=== PATIENT | female | born 1930 | race Caucasian/White ===

== ENCOUNTER 2019-08-23 05:11 | Inpatient (IN) ==
--- NOTE | 2019-06-29 16:27 | PAT Medication Instructions ---
Medication Instructions Date of Service June 29, 2019 Home Medications acetaminophen 500 mg PO DAILY PRN albuterol sulfate [ProAir HFA] 1 puff INHALATION Q6H PRN calcium carbonate-vitamin D3 [Calcium 600 with Vitamin D3] 1 cap PO QAM carvedilol 3.125 mg PO BIDM diclofenac sodium 2 g TOPICAL QID PRN latanoprost 1 drp OPHTHALMIC (EYE) PM loratadine 10 mg PO DAILY pariz-5-wqt-tht-iyr-mwwp oil [[place]-3 (with dpa)] 1 cap PO QAM omeprazole 20 mg PO QAM phenylephrine HCl 10 mg PO Q6H PRN solifenacin [Vesicare] 5 mg PO QAM vit C,P-Mz-wdnae-lutein-zeaxan [PreserVision AREDS-2] 1 tab PO BID vitamin B complex 1 tab PO QAM STOP taking 2 weeks before surgery (or as soon as possible if surgery is within 2 weeks) blnpy-6-jei-hhj-fyy-obqn oil [[place]-3 (with dpa)] 1 cap PO QAM vit C,M-Ua-weuhh-lutein-zeaxan [PreserVision AREDS-2] 1 tab PO BID STOP taking 24 hours before surgery diclofenac sodium 2 g TOPICAL QID PRN DO NOT take the morning of surgery calcium carbonate-vitamin D3 [Calcium 600 with Vitamin D3] 1 cap PO QAM loratadine 10 mg PO DAILY phenylephrine HCl 10 mg PO Q6H PRN solifenacin [Vesicare] 5 mg PO QAM vitamin B complex 1 tab PO QAM Take morning of surgery With a small sip of water, OTHERWISE NOTHING TO EAT OR DRINK AFTER MIDNIGHT: acetaminophen 500 mg PO DAILY PRN (okay to take up to 4 hours prior to surgery if needed) albuterol sulfate [ProAir HFA] 1 puff INHALATION Q6H PRN (use if needed; please bring with you to hospital day of surgery if possible) carvedilol 3.125 mg PO BIDM omeprazole 20 mg PO QAM Take evening before surgery acetaminophen 500 mg PO DAILY PRN (if needed) albuterol sulfate [ProAir HFA] 1 puff INHALATION Q6H PRN (if needed) carvedilol 3.125 mg PO BIDM latanoprost 1 drp OPHTHALMIC (EYE) PM phenylephrine HCl 10 mg PO Q6H PRN (if needed) Other Notes If you have any questions please call us at [phone] or [phone] or [phone] or [phone]
--- NOTE | 2019-08-03 13:49 | Anesthesiology Consultation ---
Date of Service August 03, 2019 Assessment & Plan (1) Encounter for pre-operative examination: - Awaiting review preop testing (labs, EKG, CXR). - Awaiting surgeon-ordered PCP clearance scheduled 08/18 (Dr. Adames). - Awaiting most recent cardiac testing if available (i.e. ECHO/stress). - Nondenominational: no blood products Chart Review Chart Review: Patient seen in Pre Admission Testing Teaching & Discussion Pre-Anesthesia Teaching/Discussion Notes: Instructed NPO after midnight before surgery,except medications with 15 cc of water. Medication instructions provided according to the PAT guidelines. History Surgery Operation Date: 08/23/19 11:15 Proposed Procedures p Right Total Hip Arthroplasty - Zack Hart, Height/Weight Height: 4 ft 11 in Weight: 69 kg Allergies Allergy/AdvReac Type Severity Reaction Status Date / Time bee venom protein (honey bee) Allergy Unknown SWELLING Verified 06/28/19 13:24 estrogens, conjugated Allergy Unknown SWELLING Verified 06/28/19 13:24 oxycodone Allergy Unknown Hives, Verified 02/21/13 16:11 swelling around eyes. Sulfa (Sulfonamide Allergy Unknown HIVES Verified 02/21/13 20:01 Antibiotics) ferrous sulfate Allergy SWELLING Unverified 02/21/13 15:12 adhesive AdvReac Unknown SKIN Verified 06/28/19 13:53 IRRITATION MADSEN Allergy Unknown SWELLING Uncoded 06/28/19 13:24 Medications Home Medications Medication Instructions Recorded Confirmed Last Taken acetaminophen 500 mg PO DAILY PRN 06/28/19 06/28/19 Unknown albuterol sulfate [ProAir HFA] 1 puff INHALATION Q6H PRN 06/28/19 06/28/19 Unknown calcium carbonate-vitamin D3 1 cap PO QAM 06/28/19 06/28/19 Unknown [Calcium 600 with Vitamin D3] carvedilol 3.125 mg PO BIDM 06/28/19 06/28/19 Unknown diclofenac sodium 2 g TOPICAL QID PRN 06/28/19 06/28/19 Unknown latanoprost 1 drp OPHTHALMIC (EYE) PM 06/28/19 06/28/19 Unknown loratadine 10 mg PO DAILY 06/28/19 06/28/19 Unknown azghz-8-ufo-kec-luj-bofc oil 1 cap PO QAM 06/28/19 06/28/19 Unknown [[place]-3 (with dpa)] omeprazole 20 mg PO QAM 06/28/19 06/28/19 Unknown phenylephrine HCl 10 mg PO Q6H PRN 06/28/19 06/28/19 Unknown solifenacin [Vesicare] 5 mg PO QAM 06/28/19 06/28/19 Unknown vit C,T-Ts-ccuti-lutein-zeaxan 1 tab PO BID 06/28/19 06/28/19 Unknown [PreserVision AREDS-2] vitamin B complex 1 tab PO QAM 06/28/19 06/28/19 Unknown Past Medical History Medical History GERD (gastroesophageal reflux disease) controlled Glaucoma Hearing deficit History of bronchitis inhaler PRN Hx of deep venous thrombosis LLE DVT post-op hysterectomy (1977) Hypertension Obesity Osteoarthritis Refusal of blood transfusions as patient is [place] Urinary frequency + urgency Exercise / Class Metabolic Activity III < 4 Walking/Shop/Light housework Past Family History Family History Other FHx: cancer Past Surgical History Surgical History History of colonoscopy History of cystocele rectocele, and vaginal surgery History of esophagogastroduodenoscopy (EGD) History of total left knee replacement History of total right knee replacement Hx of total hysterectomy Past Anesthesia History No Family Hx of Anesthesia Complications and Other Patient: Patient reports in s, "slow to wake." Also, "out of it" after initial knee replacement. No issues with other surgeries/anesthesia. Daughter: "slow to wake." PONV. History of PONV No Hx of PONV and No Hx of Motion Sickness Social History Smoking Status: Never smoker Do You Dip or Chew Tobacco: No Hx Alcohol Use: No Hx Substance Use: No Review of Systems Patient denies chest pain, shortness of breath, reflux, cough, wheezing, palpitations. Physical Exam Vital Signs VITALS BP 124/81 P 73 TEMP 98.1 SP02 96%RA RESP 18 PHYSICAL Full neck and c-spine range of motion. Full TMJ range of motion. TMD 3 finger breaths Mallampati Score 1 Dentition: 7 lower remaining front teeth, upper full denture Lungs: clear throughout to auscultation Cardiac: regular rate and rhythm, no murmurs noted Spine: normal Carotid arteries: negative bruit Extremities: no edema
--- NOTE | 2019-08-03 14:35 | XRay Report ---
XR chest Pre-admission PA/Lat CLINICAL HISTORY: Preoperative chest COMPARISON STUDY: 09/12/2015, January 2013 FINDINGS: The heart is normal in size. There is aortic tortuosity. There is no failure. There is no f ocal pulmonary consolidation. There are no pleural effusions.[There is stable anterior scalloping of the anterior aspect of 2 consecutive lower thoracic vertebral bodies IMPRESSION: No active disease in the chest. Electronically signed by: Raheel Perea M.D. 08/03/2019 2:33 PM
[2019-08-03 15:39] LABS: Basophils # (auto) 0.04 K/uL (0-0.2); Basophils % (auto) 0.9 %; Eosinophils % (auto) 2.2 %; Hematocrit (blood only) 36.8 % (37-47); Hemoglobin 12.1 g/dL (12.0-16.0); Immature Granulocytes # (auto) 0.01 K/uL (0.00-0.02); Immature Granulocytes % (auto) 0.2 %; Lymphocytes # (auto) 1.61 K/uL (1.2-3.4); Lymphocytes % (auto) 35.4 %; Mean Corpuscular Hemoglobin 33.5 pg (25-34); Mean Corpuscular Hgb Conc 32.9 g/dL (32-36); Mean Corpuscular Volume 101.9 fL (80-100); Mean Platelet Volume 11.4 fL (7.4-10.4); Monocytes # (auto) 0.43 K/uL (0.11-0.59); Monocytes % (auto) 9.5 %; Neutrophils # (auto) 2.36 K/uL (1.4-6.5); Neutrophils % (auto) 51.8 %; Platelet Count 240 K/uL (130-400); RDW Coefficient of Variation 14.3 % (11.5-14.5); Red Blood Count 3.61 M/uL (4.2-5.4); White Blood Count 4.55 K/uL (4.8-10.8)
[2019-08-03 15:48] LABS: Appearance Urine Clear (Clear); Bacteria Urine Automated Negative (Negative); Bilirubin Urine Negative (Negative); Blood Urine Trace (Negative); Cast Urine Automated 0 /lpf (0-5); Color Urine Yellow; Glucose Urine UA Negative (Negative); Ketones Urine Negative (Negative); Leukocyte Esterase Urine 1+ (Negative); Nitrite Urine Negative (Negative); Protein Urine Negative (Negative); RBC Urine Automated 0-4 /hpf (0-4); Urobilinogen Urine Negative (Negative); pH Urine 6.5 (4.5-7.5)
[2019-08-03 15:51] LABS: Albumin Level 3.7 gm/dl (3.4-5.0); BUN Creatinine Ratio 14.6 (10-20); Creatinine Clr Calc Pharmacy 31.3 ml/min; Est GFR (African American) 54.1; Est GFR (Non-African American) 46.6; Potassium 3.9 mmol/L (3.5-5.1)
[2019-08-03 15:57] LABS: Partial Thromboplastin Time 25.8 Seconds (21.0-31.0); Prothrombin Time 10.3 Seconds (9.0-12.0)
[2019-08-04 06:15] LABS: Estimated Average Glucose 108 mg/dl; Hemoglobin A1C 5.4 % (4.5-5.6)
--- NOTE | 2019-08-22 10:01 | History & Physical Report ---
Date of Service August 22, 2019 Assessment & Plan (1) Degenerative joint disease of right hip: I have indicated the patient for right total hip replacement. The risks, benefits and complications of surgery were explained to the patient which include but not limited to infection, acute blood loss, DVT/PE, injury to nerves, vessels, bone, soft tissue, arthrofibrosis, chronic pain, failure of the prosthesis, hip dislocation, leg length discrepancy, need for additional surgery, cardiac and pulmonary events and . The patient wished to proceed with surgery and informed consent was obtained at this time. We will plan for ASA 81mg BID post-operatively for DVT prophylaxis. Upon discharge the patient will be discharged home with home health services. Appropriate clearances by PCP were obtained. Patient is [place], declining any blood product, understands risks. History of Present Illness Chief Complaint: Right hip pain/djd Primary Care Provider: Alberto Adames DO The patient is a 88 year old female who presents with complaints of severe right hip pain and DJD. The patient has failed outpatient conservative ros atments to this point which included topical NSAIDs, cannot take oral secondary to kidneys, home exercise/walking program, patient declined IA hip injection. The patient's pain and limited function have progressed to the point where they severely hinder their activities of daily living and they no longer tolerate exercise programs. They are requesting to proceed with total hip replacement surgery. Allergies Allergy/AdvReac Type Severity Reaction Status Date / Time bee venom protein (honey bee) Allergy Unknown SWELLING Verified 08/23/19 06:05 estrogens, conjugated Allergy Unknown SWELLING Verified 08/23/19 06:05 oxycodone Allergy Unknown Hives, Verified 08/23/19 06:05 swelling around eyes. Sulfa (Sulfonamide Allergy Unknown HIVES Verified 08/23/19 06:05 Antibiotics) ferrous sulfate Allergy SWELLING Verified 08/23/19 06:05 adhesive AdvReac Unknown SKIN Verified 08/23/19 06:05 IRRITATION MADSEN Allergy Unknown SWELLING Uncoded 08/23/19 06:05 Home Medications Home Medications Medication Instructions Recorded Confirmed Type acetaminophen 1,000 mg PO DAILY PRN 06/28/19 08/23/19 History albuterol sulfate [ProAir HFA] 1 puff INHALATION Q6H PRN 06/28/19 08/23/19 History calcium carbonate-vitamin D3 1 cap PO QAM 06/28/19 08/23/19 History [Calcium 600 with Vitamin D3] carvedilol 3.125 mg PO BIDM 06/28/19 08/23/19 History diclofenac sodium 2 g TOPICAL QID PRN 06/28/19 08/23/19 History latanoprost 1 drp OPHTHALMIC (EYE) PM 06/28/19 08/23/19 History loratadine 10 mg PO DAILY 06/28/19 08/23/19 History mjpwl-4-dbm-bme-qii-toqh oil 1 cap PO QAM 06/28/19 08/23/19 History [[place]-3 (with dpa)] omeprazole 20 mg PO QAM 06/28/19 08/23/19 History phenylephrine HCl 10 mg PO Q6H PRN 06/28/19 08/23/19 History solifenacin [Vesicare] 5 mg PO QAM 06/28/19 08/23/19 History vit C,E-Jz-zlfjl-lutein-zeaxan 1 tab PO BID 06/28/19 08/23/19 History [PreserVision AREDS-2] vitamin B complex 1 tab PO QAM 06/28/19 08/23/19 History Past Med/Surg History Medical History GERD (gastroesophageal reflux disease) controlled Glaucoma Hearing deficit History of bronchitis inhaler PRN Hx of deep venous thrombosis LLE DVT post-op hysterectomy (1977) Hypertension Obesity Osteoarthritis Refusal of blood transfusions as patient is Gnostic[place] Urinary frequency + urgency Surgical History History of colonoscopy History of cystocele rectocele, and vaginal surgery History of esophagogastroduodenoscopy (EGD) History of total left knee replacement History of total right knee replacement Hx of total hysterectomy Family History Other FHx: cancer Social History Preferred Language: Comoran Communication Ability: Effective Beliefs That Will Affect Care: Anabaptism Anabaptism Beliefs: JEHOVAH WITNESS - NO BLOOD Current Living Situation: Alone Feels Safe at Home: Yes Safety Concerns: Feels Safe At This Time Smoking Status: Never smoker Do You Dip or Chew Tobacco: No ; Second Hand Exposure: No ; Hx Alcohol Use: No Hx Substance Use: No Review of Systems Review of Systems: All systems reviewed & are unremarkable except as noted in HPI & below Constitutional: as per Subjective / HPI Physical Exam Physical Exam: RLE NVSI +EHL/FHL/TA/GS SILT grossly, +2 DP pulse, compartments soft NT, limited painful ROM of the hip, antalgic gait. Constitutional: WD/WN, vitals as above Eyes: PERRL, conjunctivae normal, anicteric sclerae ENMT: external ear and nose normal, oropharynx normal Neck: trachea midline, no thyromegaly Respiratory: normal respiratory effort, lungs clear to auscultation Cardiovascular: RRR, no murmur, no edema Gastrointestinal (Abdomen): normal bowel sounds, soft, nontender, no hepatosplenomegaly Musculoskeletal: no cyanosis or clubbing, extremities motor strength 5/5 Skin: no rashes, warm and dry Neurologic: patellar DTR's 2+ bilat, sensation intact Psychiatric: A+Ox3, euthymic affect Lymphatic: no cervical or axillary lymphadenopathy Results & Data Diagnostic Findings Multiple views of the hip demonstrates severe DJD with complete loss of the joint space. +osteophytes, +sclerosis, +subchondral cysts.
[2019-08-23] MEDS ORDERED: CEFAZOLIN 1000MG 1,000 MG/7.5 ML SYR IV SCH (06:00)
[2019-08-23] MEDS ORDERED: ACETAMINOPHEN 500 MG TAB PO SCH (06:00)
[2019-08-23] MEDS ORDERED: dexAMETHasone 4 MG TAB PO SCH (06:00)
[2019-08-23] MEDS ORDERED: METOCLOPRAMIDE HCL 10 MG TABLET PO SCH (06:00)
[2019-08-23] MEDS ORDERED: FAMOTIDINE 20 MG TAB PO SCH (06:00)
[2019-08-23] MEDS ORDERED: CeleBREX 200 MG CAP PO SCH (06:00)
[2019-08-23] MEDS ORDERED: LR 500ML BOLUS, THEN 15ML/HR IV SCH (06:00)
[2019-08-23] MEDS ORDERED: GABAPENTIN 300 MG CAP PO SCH (06:00)
[2019-08-23] MEDS ORDERED: BUPIVACAINE 0.5 % 5 MG/1 ML PF 10ML VIAL ONE (06:19)
[2019-08-23] MEDS ORDERED: MIDAZOLAM HCL 1 MG/ML 2ML VIAL ONE (06:46)
[2019-08-23] MEDS ORDERED: PROPOFOL IV EMULSION 10 MG/ML 20 ML VIAL IV ONE ×2 (06:47→08:05)
[2019-08-23] MEDS ORDERED: fentaNYL citrate 100 MCG/2 ML VIAL ONE (06:47)
[2019-08-23] MEDS ORDERED: LIDOCAINE 2% 20 MG/ML 5 ML SYR IV ONE (06:47)
[2019-08-23] MEDS ORDERED: ONDANSETRON INJ 2 MG/ML 2 ML VIAL ONE (06:47)
[2019-08-23] MEDS ORDERED: ATROPINE SULFATE 0.1 MG/ML 10ML SYR IV PRN (06:58)
[2019-08-23] MEDS ORDERED: fentaNYL citrate 100 MCG/2 ML VIAL IV PRN (06:58)
[2019-08-23] MEDS ORDERED: ePHEDrine sulfate 50 MG/ML AMP IV PRN (06:58)
[2019-08-23] MEDS ORDERED: ONDANSETRON INJ 2 MG/ML 2 ML VIAL IV PRN ×2 (06:58→10:20)
[2019-08-23] MEDS ORDERED: BACITRACIN INJ 50,000 UNIT VIAL ONE (06:59)
--- NOTE | 2019-08-23 07:02 | History & Physical Bridge Note ---
Date of Service August 23, 2019 History & Physical Bridge Note I have examined the patient, reviewed the History & Physical and in the interval since the performance of the History & Physical I have noted the following changes of clinical significance: no changes noted
[2019-08-23] MEDS ORDERED: BUPIVACAINE/EPINEPHRINE 0.5% MPF 1:200,000 30 ML VIAL ONE (07:32)
[2019-08-23] MEDS ORDERED: ePHEDrine sulfate 50 MG/ML SYR ONE (07:46)
--- NOTE | 2019-08-23 08:46 | Post Operative Brief Note ---
Immediate Post Op Note v1 Date of Surgery August 23, 2019 Pre & Post Diagnosis Operation Date: 08/23/19 07:15 Pre-Op Diagnosis: Unilateral Primary Osteoarthritis, Right Hip Post-Op Diagnosis: Unilateral Primary Osteoarthritis, Right Hip I identified the patient and participated in the time-out.: Yes Procedure Operation Date: 08/23/19 07:15 Actual Procedures p Right Total Hip Arthroplasty-Posterior(Right) - Zack Hart DO Surgeon Zack Hart DO Road Service Locksmith Jesse Hernandez Estimated Blood Loss 75 Findings Consistent with Post-Op Diagnosis Fluids 1000 cc LR Specimens femoral head Anesthesia Type Spinal MAC Complications none Disposition Disposition: Recovery Room Overlapping Procedure I was present for: the critical portions of procedure. I was immediately available: during the entire case. Back up surgeon: was not required during procedure.
--- NOTE | 2019-08-23 08:59 | Operative Report ---
Post Operative Report Pre & Post Diagnosis Operation Date: 08/23/19 07:15 Pre-Op Diagnosis: Unilateral Primary Osteoarthritis, Right Hip Post-Op Diagnosis: Unilateral Primary Osteoarthritis, Right Hip I identified the patient and participated in the time-out.: Yes Procedure Operation Date: 08/23/19 07:15 Actual Procedures p Right Total Hip Arthroplasty-Posterior(Right) - Zack Hart DO Surgeon Zack Hart DO Alumnae Secretary Jesse Hernandez Estimated Blood Loss 75 Findings Consistent with Post-Op Diagnosis Fluids 1000 cc LR Specimens Femoral head Anesthesia Type Spinal MAC Complications none Disposition Disposition: Recovery Room Indications The patient is a 88-year-old female who presents with severe progressive right hip DJD who has failed outpatient conservative treatments. I indicated the patient for a total hip replacement and the risks and benefits were explained in detail which included but not limited to infection, bleeding, blood clot, damage to surrounding bone, nerves, vessels, soft tissue, hip dislocation, failure of the prosthesis, leg length discrepancy, need for additional surgery and . The patient agreed to proceed with replacement of the hip and informed consent was obtained. Appropriate clearances were obtained. Description of Procedure COMPONENTS USED: Bradley [employer] hip system: Acetabulum size 48, femur size 7.5 standard reduced offset, femoral head 32-3.5, liner 4832, acetabular screw 35 mm x 1. Following induction of adequate spinal anesthesia, the patient was transferred to the OR table and placed in lateral decubitus position with left hip down. The right hip was prepped and draped in the typical sterile fashion. A timeout was performed, patient identified and site licha confirmed. Appropriate antibiotics were given. A standard posterolateral/Yoko-Langenbeck incision was made. Subcutaneous tissue was sharply dissected. Electrocautery was utilized for hemostasis. The fascia was incised throughout the length of the wound and retracted with the Charnley retractor. The bursa was taken down and the short external rotators were identified. The piriformis was tagged with #1 Vicryl. The short external rotators and capsule were divided from the posterior aspect of the femur using electrocautery. The posterior capsule was tagged with #1 Vicryl. Both external rotators and posterior capsule were swept posterior and protected, along with protecting the sciatic nerve. The hip was dislocated by flexion and internally rotation in a controlled manner and exposure of the femoral neck was gained with an old-style Hohmann and a blunt cobra retractor. A femoral cutting guide was utilized for making the appropriate level femoral neck cut with reciprocating saw. The femoral head was removed, measured and reserved on the back table. Next, attention was turned to the acetabulum. A posterior and anterior offset retractor was placed to gain adequate exposure. Acetabular labrum as well as posterior capsule elements were removed using electrocautery and forceps. Fovea centralis was cleared of all soft tissue. Sequential reaming was performed starting at 44mm and carried up to a 47 mm and decision was made to proceed with impaction of a 48 mm G7 osteo-ti cup. This was impacted and held using a single 35 mm bone screw. The trial acetabular liner was placed at this time. Next, attention was turned to the proximal femur where a Bovie and pickup was used to further clear short external rotators from their insertion on the femur. Box osteotome and canal finder was used to gain access to the femoral canal and the lateral reamer on power was used to further open the proximal lateral canal. Sequentially rasping was carried up to a 7.5 which gave good fit and fill of the proximal femur. A trial reduction was carried out with a standard reduced offset femoral neck component a 32-3.5 mm femoral head. The trial reduction was stable in all degrees of rotation with no [id number] impingement. The hip was dislocated, trial components were removed and access to the acetabulum was re-established. The trial liner was removed and the cup was irrigated to ensure all debris was removed. The final acetabular liner was inserted and properly seated in the cup. Access to the femur was once more gained and the size 7.5 femoral stem wi th standard reduced offset was impacted into position. The hip was once more assessed with the 32-3.5 mm femoral head. Stability was accessed and found to be excellent with equal leg lengths. The hip was dislocated for the last time and the final 32-3.5 ceramic femoral head was impacted in place and the hip was reduced. Range of motion was checked once again and found to be stable. A Betadine soak was performed. After 3 minutes, the hip was once more irrigated with copious sterile saline solution with bacitracin. The angus-incisional soft tissue was injected utilizing the percent Marcaine with epi. The piriformis, external rotators and capsule were repaired to the greater trochanter through bone tunnels using #5 FiberWire. The fascia was closed using #1 Vicryl, subcutaneous tissue was closed using 2-0 Vicryl, and skin was closed with 3-0 V- lock suture and Dermabond Prineo. Sterile dressings were applied which included abhijeet, 4x4s and paper tape dressing. The patient tolerated the procedure well and was transported to PACU in stable condition. Due to the complex nature of the procedure, the entire surgery was performed with the operational assistance of Jesse Hernandez PA-C. The graduate assistant athletic trainer, under direct supervision, was involved in the actual performance of all aspects of the surgical procedure including patient positioning, hemostasis, tissue retraction, instrument management and wound closure. I attest to the content of the Intraoperative Record and any orders documented therein. Any exceptions are noted below.
--- NOTE | 2019-08-23 09:38 | XRay Report ---
XR hip 1V RT w pelvis CLINICAL HISTORY: Postoperative evaluation. COMPARISON: None FINDINGS: Alignment of the total right hip arthroplasty is anatomic. There is no fracture or unexpec thompson radiopaque foreign body. Joint space narrowing and osteophytosis of the left hip is noted. IMPRESSION: Expected findings following total right hip arthroplasty. Electronically signed by: Aníbal Dorsey M.D. 08/23/2019 9:36 AM
--- NOTE | 2019-08-23 09:41 | Anesthesiology Progress Note ---
Date of Service August 23, 2019 Anesthesia Post Procedure Vital Signs Vital Signs: Temp Pulse Pulse Resp BP BP Pulse Ox 08/23/19 09:35 67 18 145/76 H 99 08/23/19 09:25 71 18 108/61 99 08/23/19 09:15 69 16 131/68 95 08/23/19 09:09 97.3 F L 69 16 131/67 97 08/23/19 06:30 98.4 F 64 18 158/88 H 98 Transfer of Care Handoff Completed per policy Notes Mental Status: alert / awake / arousable and participated in evaluation Patient Amnestic to Procedure: Yes Nausea / Vomiting: adequately controlled Pain: adequately controlled Airway Patency, RR, SpO2: stable & adequate BP & HR: stable & adequate Hydration State: stable & adequate Neuraxial Anesthesia: was administered and sensory block is resolving Anesthetic Complications: no major complications apparent and Pt Satisfied with anesthetic care
[2019-08-23] MEDS ORDERED: NALOXONE HCL 0.4 MG/1 ML VIAL/CARP IV PRN (10:20)
[2019-08-23] MEDS ORDERED: bisacodyL 10 MG SUPP PR PRN (10:20)
[2019-08-23] MEDS ORDERED: SOLIFENACIN 5 MG PO SCH (10:20)
[2019-08-23] MEDS ORDERED: HYDROmorphone INJ 0.5 MG/0.5 ML SYR IV PRN (10:20)
[2019-08-23] MEDS ORDERED: METOCLOPRAMIDE HCL INJ 5 MG/ML 2 ML VIAL IV PRN (10:20)
[2019-08-23] MEDS ORDERED: MAGNESIUM HYDROXIDE SUSP 30 ML UDC PO PRN (10:20)
[2019-08-23] MEDS ORDERED: ALBUTEROL HFA 8 GM INHALER INH PRN (10:45)
[2019-08-23] MEDS: SODIUM CHLORIDE 0.9% 1000ML 1,000 ML IV SCH ×2 (11:35→20:18)
[2019-08-23] MEDS: CALCIUM 600MG + VIT D 400 IU TAB PO SCH (13:17)
[2019-08-23] MEDS: MULTIVITAMIN TAB PO SCH (13:17)
[2019-08-23] MEDS: [UNRECOGNIZED DRUG - OTHER] SCH ×3 (13:18→23:29)
[2019-08-23] MEDS: LORATADINE 10 MG TAB PO SCH (13:18)
[2019-08-23] MEDS: ACETAMINOPHEN 500 MG TAB PO SCH ×2 (13:19→22:40)
[2019-08-23] MEDS: DOCUSATE SODIUM 100 MG CAP PO SCH ×2 (13:22→20:23)
[2019-08-23] MEDS: CEFAZOLIN 1000MG 1,000 MG/7.5 ML SYR IV SCH ×2 (13:22→22:40)
--- NOTE | 2019-08-23 15:34 | Orthopedic Progress Note ---
Date of Service August 23, 2019 Assessment & Plan (1) Degenerative joint disease of right hip: Status post right total hip arthroplasty -Ancef x24 -DVT prophylaxis: SCDs, teds, ASA 81 mg twice daily -Posterior hip precautions -PT/OT -Postoperative x-ray demonstrate a well aligned well fixed orthopedic prosthesis without evidence of fracture or dislocation. -A.m. lab -DC planning Subjective Post Operative Progress Note Patient seen sitting up in bed, comfortable, denies complaints, pain well controlled, no acute issues. Review of Systems Review of Systems: All systems reviewed & are unremarkable except as noted in HPI & below Constitutional: as per Subjective / HPI Physical Exam Physical Exam: RLE NVSI +EHL/FHL/TA/GS SILT grossly, +2 DP pulse, compartments soft NT, dressing cdi. Abduction low in place. Constitutional: WD/WN, vitals as above Results & Data Vital Signs (Past 12 Hours) Vital Signs Temp Pulse Pulse Resp BP BP Pulse Ox 08/23/19 15:06 36.3 C L 71 12 152/82 H 95 08/23/19 13:00 78 16 146/83 H 95 08/23/19 11:55 65 16 130/79 98 08/23/19 10:50 60 16 156/68 H 97 08/23/19 10:29 65 16 143/84 H 97 08/23/19 09:45 36.4 C L 67 19 143/81 H 94 08/23/19 09:35 67 18 145/76 H 99 08/23/19 09:25 71 18 108/61 99 08/23/19 09:15 69 16 131/68 95 08/23/19 09:09 36.3 C L 69 16 131/67 97 08/23/19 06:30 36.9 C 64 18 158/88 H 98
[2019-08-23] MEDS: TRAMADOL HCL 50 MG TABLET PO PRN ×2 (16:14→20:30)
[2019-08-23] MEDS: carvediloL 3.125 MG TAB PO SCH (16:17)
[2019-08-23] MEDS: LATANOPROST 0.005% OP SOLN 2.5 ML BTL OP SCH (20:18)
[2019-08-23] MEDS: SENNA 8.6 MG TAB PO SCH (20:19)
[2019-08-24] MEDS: TRAMADOL HCL 50 MG TABLET PO PRN ×3 (03:45→22:00)
[2019-08-24 05:00] LABS: Basophils # (auto) 0.01 K/uL (0-0.2); Basophils % (auto) 0.1 %; Hemoglobin 9.7 g/dL (12.0-16.0); Immature Granulocytes # (auto) 0.01 K/uL (0.00-0.02); Immature Granulocytes % (auto) 0.1 %; Lymphocytes # (auto) 1.11 K/uL (1.2-3.4); Mean Corpuscular Hemoglobin 33.6 pg (25-34); Mean Corpuscular Hgb Conc 33.4 g/dL (32-36); Mean Corpuscular Volume 100.3 fL (80-100); Mean Platelet Volume 10.4 fL (7.4-10.4); Monocytes # (auto) 1.22 K/uL (0.11-0.59); Monocytes % (auto) 13.1 %; Neutrophils # (auto) 6.93 K/uL (1.4-6.5); Neutrophils % (auto) 74.7 %; Platelet Count 189 K/uL (130-400); RDW Coefficient of Variation 14.2 % (11.5-14.5); Red Blood Count 2.89 M/uL (4.2-5.4); White Blood Count 9.28 K/uL (4.8-10.8)
[2019-08-24 05:17] LABS: BUN Creatinine Ratio 23.6 (10-20); Creatinine Clr Calc Pharmacy 36.5 ml/min; Est GFR (African American) 65.7; Est GFR (Non-African American) 56.7
[2019-08-24 05:36] LABS: Potassium 3.9 mmol/L (3.5-5.1)
[2019-08-24] MEDS: ACETAMINOPHEN 500 MG TAB PO SCH ×3 (06:06→22:44)
[2019-08-24] MEDS: LORATADINE 10 MG TAB PO SCH (08:14)
[2019-08-24] MEDS: PANTOprazole 40 MG TAB PO SCH (08:15)
[2019-08-24] MEDS: CALCIUM 600MG + VIT D 400 IU TAB PO SCH (08:15)
[2019-08-24] MEDS: ASPIRIN 81 MG ECTAB PO SCH ×2 (08:15→21:56)
[2019-08-24] MEDS: [UNRECOGNIZED DRUG - OTHER] SCH (08:15)
[2019-08-24] MEDS: MULTIVITAMIN TAB PO SCH (08:15)
[2019-08-24] MEDS: DOCUSATE SODIUM 100 MG CAP PO SCH ×2 (08:15→21:56)
[2019-08-24] MEDS: carvediloL 3.125 MG TAB PO SCH ×2 (08:15→16:22)
--- NOTE | 2019-08-24 10:48 | Orthopedic Progress Note ---
Date of Service August 24, 2019 Assessment & Plan (1) Degenerative joint disease of right hip: Status post right total hip arthroplasty POD#1 -Ancef x24 -DVT prophylaxis: SCDs, teds, ASA 81 mg twice daily -Posterior hip precautions -PT/OT -Postoperative x-ray demonstrate a well aligned well fixed orthopedic prosthesis without evidence of fracture or dislocation. -A.m. lab - hgb 9.7 -DC planning - home with HH 08/25/19 Subjective Post Operative Progress Note Patient seen sitting up in bed, comfortable, denies complaints, pain well controlled, no acute issues. Denies F/C/N/V/SOP/CP. Review of Systems Review of Systems: All systems reviewed & are unremarkable except as noted in HPI & below Constitutional: as per Subjective / HPI Physical Exam Physical Exam: RLE NVSI +EHL/FHL/TA/GS SILT grossly, +2 DP pulse, compartments soft NT, dressing cdi. Constitutional: WD/WN, vitals as above Results & Data Vital Signs (Past 12 Hours) Vital Signs Temp Pulse Resp BP Pulse Ox 08/24/19 07:09 36.8 C 64 16 114/70 98 08/24/19 03:42 36.4 C L 81 16 118/74 98 Laboratory Results 08/24/19 08/24/19 Range/Units 04:44 04:44 WBC 9.28 (4.8-10.8) K/uL RBC 2.89 L (4.2-5.4) M/uL Hgb 9.7 L (12.0-16.0) g/dL Hct 29.0 L (37-47) % MCV 100.3 H (80-100) fL MCH 33.6 (25-34) pg MCHC 33.4 (32-36) g/dL RDW Std Deviation 52.0 H (36.4-46.3) fL RDW Coeff of Brigitte 14.2 (11.5-14.5) % Plt Count 189 (130-400) K/uL MPV 10.4 (7.4-10.4) fL Immature Gran % (Auto) 0.1 % Neut % (Auto) 74.7 % Lymph % (Auto) 12.0 % [place] % (Auto) 13.1 % Eos % (Auto) 0.0 % Baso % (Auto) 0.1 % Immature Gran # (Auto) 0.01 (0.00-0.02) K/uL Neut # (Auto) 6.93 H (1.4-6.5) K/uL Lymph # (Auto) 1.11 L (1.2-3.4) K/uL [place] # (Auto) 1.22 H (0.11-0.59) K/uL Eos # (Auto) 0.00 (0-0.5) K/uL Baso # (Auto) 0.01 (0-0.2) K/uL Sodium 142 (136-145) mmol/L Potassium 3.9 (3.5-5.1) mmol/L Chloride 112 H (98-107) mmol/L Carbon Dioxide 26 (21-32) mmol/L Anion Gap 4.0 (3-11) BUN 21 H (7-18) mg/dl Creatinine 0.91 (0.6-1.2) mg/dl Est Cr Clr Drug Dosing 36.5 ml/min Est GFR ( Amer) 65.7 Est GFR (Non-Af Amer) 56.7 BUN/Creatinine Ratio 23.6 H (10-20) Glucose 117 H (70-99) mg/dl Calcium 8.0 L (8.5-10.1) mg/dl
[2019-08-24] MEDS: VESICARE 5 MG PO SCH (14:30)
[2019-08-24] MEDS: SENNA 8.6 MG TAB PO SCH (21:56)
[2019-08-24] MEDS: LATANOPROST 0.005% OP SOLN 2.5 ML BTL OP SCH (21:56)
[2019-08-24 23:23] VITALS: O2SAT 95
[2019-08-25] MEDS: ACETAMINOPHEN 500 MG TAB PO SCH ×2 (05:00→13:13)
[2019-08-25 05:30] LABS: Basophils # (auto) 0.01 K/uL (0-0.2); Basophils % (auto) 0.1 %; Eosinophils # (auto) 0.04 K/uL (0-0.5); Eosinophils % (auto) 0.5 %; Hemoglobin 9.2 g/dL (12.0-16.0); Immature Granulocytes # (auto) 0.03 K/uL (0.00-0.02); Immature Granulocytes % (auto) 0.4 %; Lymphocytes # (auto) 1.44 K/uL (1.2-3.4); Lymphocytes % (auto) 17.4 %; Mean Corpuscular Hemoglobin 33.3 pg (25-34); Mean Corpuscular Hgb Conc 32.9 g/dL (32-36); Mean Corpuscular Volume 101.4 fL (80-100); Monocytes # (auto) 1.32 K/uL (0.11-0.59); Neutrophils # (auto) 5.43 K/uL (1.4-6.5); Neutrophils % (auto) 65.6 %; Platelet Count 185 K/uL (130-400); RDW Coefficient of Variation 14.8 % (11.5-14.5); RDW Standard Deviation 54.8 fL (36.4-46.3); Red Blood Count 2.76 M/uL (4.2-5.4); White Blood Count 8.27 K/uL (4.8-10.8)
[2019-08-25 05:59] LABS: BUN Creatinine Ratio 23.7 (10-20); Calcium 8.5 mg/dl (8.5-10.1); Creatinine Clr Calc Pharmacy 36.5 ml/min; Est GFR (African American) 65.7; Est GFR (Non-African American) 56.7; Potassium 4.2 mmol/L (3.5-5.1)
[2019-08-25] MEDS: carvediloL 3.125 MG TAB PO SCH (08:06)
[2019-08-25] MEDS: LORATADINE 10 MG TAB PO SCH (08:06)
[2019-08-25] MEDS: MULTIVITAMIN TAB PO SCH (08:06)
[2019-08-25] MEDS: VESICARE 5 MG PO SCH (08:06)
[2019-08-25] MEDS: DOCUSATE SODIUM 100 MG CAP PO SCH (08:06)
[2019-08-25] MEDS: CALCIUM 600MG + VIT D 400 IU TAB PO SCH (08:06)
[2019-08-25] MEDS: ASPIRIN 81 MG ECTAB PO SCH (08:06)
[2019-08-25] MEDS: PANTOprazole 40 MG TAB PO SCH (08:06)
[2019-08-25 08:22] VITALS: BP 104/68; PULSE 66; TEMP 97.9
--- NOTE | 2019-08-25 12:46 | Orthopedic Progress Note ---
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 -A.m. lab - hgb 9.2, stable -DC planning - home with POD#1 -Ancef x24 -DVT prophylaxis: SCDs, teds, ASA 81 mg twice daily -Posterior hip precautions -PT/OT -Postoperative x-ray demonstrate a well aligned well fixed orthopedic prosthesis without evidence of fracture or dislocation. -A.m. lab - hgb 9.7 -DC planning - home with 08/25/19 Subjective Post Operative Progress Note Patient seen in a.m. sitting up in bed, comfortable, denies complaints, pain well controlled, no acute issues. Denies F/C/N/V/SOP/CP. Review of Systems Review of Systems: All systems reviewed & are unremarkable except as noted in HPI & below Constitutional: as per Subjective / HPI Physical Exam Physical Exam: RLE NVSI +EHL/FHL/TA/GS SILT grossly, +2 DP pulse, compartments soft NT, dressing cdi. Constitutional: WD/WN, vitals as above Results & Data Vital Signs (Past 12 Hours) Vital Signs Temp Pulse Resp BP Pulse Ox 08/25/19 07:16 36.6 C 66 16 104/68 95
[2019-08-25] MEDS: TRAMADOL HCL 50 MG TABLET PO PRN (13:49)
--- NOTE | 2019-08-25 16:00 | Discharge Summary ---
Date of Service August 25, 2019 Admission HPI Per Admitting Provider The patient is a 88 year old female who presents with complaints of severe right hip pain and DJD. 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 The patient's pain and limited function have progressed to the point where they severely hinder their activities of daily living and they no longer tolerate exercise programs. They are requesting to proceed with total hip replacement surgery. Principal Diagnosis Right total hip replacement Discharge Exam RLE NVSI +EHL/FHL/TA/GS SILT grossly, +2 DP pulse, compartments soft NT, dressing cdi. Constitutional WD/WN, vitals as above Discharge Data Allergies Allergy/AdvReac Type Severity Reaction Status Date / Time bee venom protein (honey bee) Allergy Unknown SWELLING Verified 08/23/19 06:05 estrogens, conjugated Allergy Unknown SWELLING Verified 08/23/19 06:05 oxycodone Allergy Unknown Hives, Verified 08/23/19 06:05 swelling around eyes. Sulfa (Sulfonamide Allergy Unknown HIVES Verified 08/23/19 06:05 Antibiotics) ferrous sulfate Allergy SWELLING Verified 08/23/19 06:05 adhesive AdvReac Unknown SKIN Verified 08/23/19 06:05 IRRITATION MADSEN Allergy Unknown SWELLING Uncoded 08/23/19 06:05 Consultations 08/24/19 08:00 Consult Case Management - Discharge Planning Routine Procedures Performed Operation Date: 08/23/19 07:15 Actual Procedures p Right Total Hip Arthroplasty-Posterior(Right) - Zack Hart DO [facility] Course (1) Degenerative joint disease of right hip: The patient is a 88 -year-old female who presents with long standing history of severe right hip DJD and failed outpatient conservative treatments including NSAIDs, bracing, injections and home walking/exercise program. The patient's symptoms have progressed to the point where it has been difficult to perform even normal activities of daily living. I indicated the patient for a right total toe arthroplasty, the risks, benefits and complications of the procedure include but not limited to infection, bleeding, damage to bone, nerves, vessels, surrounding soft tissue, may develop blood clots, loss of function, leg length discrepancy, dislocation, failure of the components, loosening of the components, the need for additional surgery and . The patient wished to proceed with surgery at this time and informed consent was obtained. Hospital Course: On 08/23/2019 the patient was taken to the operating room, adequate anesthesia administered and underwent a right total hip arthroplasty. The patient tolerated the procedure well and was taken to the PACU in stable condition. Post-operatively the patient was started on a DVT ppx medication and given appropriate IV antibiotics. Consults were placed to physical therapy, occupational therapy and case management. On POD#1, the patient did well overnight and their pain was well controlled. Labs were drawn and the Hgb was 9.7. The patient progressed well with PT. Dressings were changed at this time and the incision was clean, dry and intact. On POD#2, the patient did well overnight. Continue to progress with physical therapy. Labs were drawn, hemoglobin 9.2. The patients hospital stay was relatively uneventful and they were deemed stable by the orthopedic team and consultants to be discharged home with home health on 08/25/2019. Discharge Instructions: Upon discharge the patient may weight bear as tolerates through their operative extremity. They were instructed to keep the incision clean and dry at all times. The patient may shower but should not submerge the incision, avoid bathing, pools and hot tubes. The patient was given a script for pain medication and should take as instructed. The patient was given a script for DVT ppx 81 mg aspirin twice daily and should take as directed. The patient was instructed to not drive or travel for long distances until cleared to do so. If the patient develops any symptoms of fevers, chills, nausea, vomiting, increased redness, swelling, pain or drainage from the surgical site, they should notify the office and/or proceed to the nearest emergency room. The patient should follow up in 10-14 days after surgery for their routine post-operative follow-up appointment and should call the office to confirm the date and time. Status post right total hip arthroplasty POD#2 -Ancef x24 -DVT prophylaxis: SCDs, teds, ASA 81 mg twice daily -Posterior hip precautions -PT/OT -Postoperative x-ray demonstrate a well aligned well fixed orthopedic prosthesis without evidence of fracture or dislocation. -A.m. lab - hgb 9.2, stable -DC planning - home with POD#1 -Ancef x24 -DVT prophylaxis: SCDs, teds, ASA 81 mg twice daily -Posterior hip precautions -PT/OT -Postoperative x-ray demonstrate a well aligned well fixed orthopedic prosthesis without evidence of fracture or dislocation. -A.m. lab - hgb 9.7 -DC planning - home with 08/25/19 Total Time Total Time Spent Total Time Spent (In Minutes): 45 minutes Total Time Includes: Examination of the Patient, Discharge Planning, Medication Reconciliation and Communication With Other Providers Discharge Plan Discharge Items Patient Disposition: Home - Home Health Services Reason For Visit: Unilateral Primary Osteoarthritis, Right Hip Discharge Diagnosis: Right total hip replacement Condition on Discharge: Good Activity: Per Instructions section Lifting: Wait until after follow-up appointment Bathing: Keep incision dry Bathing Comment: No bathing, pools or hot tubs. Sexual Activity: Wait until after follow-up appointment Exercise/Sports: Wait until after follow-up appointment Driving/Machine Use: No driving Weightbearing: Full weightbearing Non-emergency contact: Primary Care Provider and Surgeon Call non-emergency contact if: you have any medication questions, your symptoms worsen, your pain is not controlled, your pain is worsening, your pain is unusual for you, your pain is concerning for you, you have a fever, your temperature is above 101, your wound has increased redness, your wound has increased drainage and your wound pain has increased Follow-up/Referrals: Alberto Adames, [Primary Care Provider] - Diet: Regular Addtl Attending Provider Instructions: ACTIVITY RECOMMENDATIONS: SELF CARE INSTRUCTIONS AFTER TOTAL HIP REPLACEMENT Until the incision and soft tissues around your hip have healed, there is a possibility that the hip prosthesis could dislocate. A. Observe the following precautions to prevent dislocation: 1. Don't bend your hip greater than 90 degrees. 2. Avoid crossing your legs or ankles while standing or lying. 3. Sit with your feet placed 6 inches apart. 4. When sitting, keep your knees below your hips. Sit on a firm surface, avoid deep, soft chairs and couches. Use an elevated toilet seat in the bathroom. 5. Don't bend over at the waist. Use a long handled shoehorn and a sock aid to help you put on your shoes and socks. A creative art therapist can help you fruit picker machine operator objects that are too high or too low to reach. 6. Keep car riding to a minimum for at least one month after surgery. B. Your balance may be shaky for a while. Use crutches or a walker until directed by your doctor. C. Use hand rails when walking on stairs. D. Wear low heeled shoes with non-slip soles. E. Be sure that your floors are free of things that could trip you - throw rugs, electrical cords, small objects. Avoid wet and waxed floors, especially with crutches and canes. F. Try to walk several times a day with rest periods between. G. Continue with all the exercises taught to you in the hospital. Again, make walking a part of your daily routine. SPECIAL CARE INSTRUCTIONS: VERY IMPORTANT TO READ AND REVIEW A. You may still be at risk for phlebitis and blood clots. 1. Wear surgical stockings (SARAH hose) for 2 weeks after surgery to improve circulation and reduce swelling. 2. Take Aspirin 81mg twice daily for 4 weeks or as directed by your doctor. This is your blood thinner. 3. High risk patients may be prescribed a stronger blood thinner if necessary. 4. If you are on Coumadin normally, your family doctor/design supervisor should monitor your blood work. Expect a phone call the day of or the day after bloodwork is drawn to adjust your dosage. B. You must take antibiotics before having dental work, bladder, bowel and other surgery. Your doctor will provide you with a permanent card to carry describing precautions. C. Call [facility] if you have a fever, redness or swelling around the incision, cloudy drainage from incision, or sudden increase in pain in your hip, not relieved by your regular pain medication. D. Please call the office at if you have any concerns or questions about your operation or recovery. * YOU MAY SHOWER, NO TUB BATHS UNTIL CLEARED BY YOUR DOCTOR. * WEAR SARAH HOSE 20 HOURS PER DAY FOR 2 WEEKS. * YOU SHOULD USE A WALKER OR CRUTCHES FOR 2-4 WEEKS. THIS WILL HELP PREVENT STRAIN ON YOUR HIP MUSCLE AND ALLOW IT TO HEAL PROPERLY. YOU MAY WEAN TO A CANE TOLERATED. * MOST PATIENTS WILL HAVE HOME NURSING FOR THERAPY. IF YOU DECIDE TO DO OUTPATIENT PHYSICAL THERAPY, PLEASE SCHEDULE THIS 3 TIMES PER WEEK. *DERMABOND Prineo- This is a mesh tape dressing that is covered with glue. It should remain in place until the incision is properly healed, usually 10-14 days. This dressing is designed to naturally slough off. You may trim the excess mesh tape as it peels off. Incision may be briefly wet in a shower. Dry immediately by blotting with a clean, dry towel. Do not bath or swim until instructed by your doctor. Do not scratch, rub, or pick at the dressing. Do not apply any topical ointments or lotions until dressing is completely removed and/or instructed by your doctor. There may be a small piece of suture material at one end of your incision. Do not pull or trim this. If it is bothersome or catching on clothing, you may cover it with a band-aid. FOLLOW UP VISIT: If appointment is not already scheduled: Please call [facility] to make a follow-up appointment for 2 weeks after your surgery at . Pending Studies at Discharge: No Stand-Alone Forms: My [employer], Smoking Cessation Medications and DC Order Prescriptions: New aspirin [Ecotrin Low Strength] 81 mg Tablet,Delayed Release (Dr/Ec) 81 mg PO BID 28 Days Qty: 56 RF: 0 tramadol 50 mg Tablet 50 mg PO Q6H PRN (Reason: pain) Qty: 30 RF: 0 acetaminophen [Tylenol Extra Strength] 500 mg Tablet 1,000 mg PO Q8 PRN (Reason: pain and/or fever) Qty: 90 RF: 0 sennosides [Senokot] 8.6 mg Tablet 17.2 mg PO HS PRN (Reason: constipation) Qty: 28 RF: 0 Continued vitamin B complex Tablet 1 tab PO QAM RF: 0 calcium carbonate-vitamin D3 [Calcium 600 with Vitamin D3] 600 mg(1,500mg) - 500 unit Capsule 1 cap PO QAM RF: 0 carvedilol 3.125 mg Tablet 3.125 mg PO BIDM RF: 0 diclofenac sodium 1 % Gel 2 g TOPICAL QID PRN (Reason: Pain) RF: 0 loratadine 10 mg Capsule 10 mg PO DAILY RF: 0 omeprazole 20 mg Capsule,Delayed Release(Dr/Ec) 20 mg PO QAM RF: 0 solifenacin [Vesicare] 5 mg Tablet 5 mg PO QAM RF: 0 [place]-3 (with dpa) 1,050-1,200 mg Capsule 1 cap PO QAM RF: 0 latanoprost 0.005 % Drops 1 drp OPHTHALMIC (EYE) PM RF: 0 albuterol sulfate [ProAir HFA] 90 mcg/actuation Hfa Aerosol Inhaler 1 puff INHALATION Q6H PRN (Reason: Shortness Of Breath) RF: 0 phenylephrine HCl 10 mg Tablet 10 mg PO Q6H PRN (Reason: Nasal Congestion) RF: 0 PreserVision AREDS-2 [id number]-ayzk-me-mg Capsule 1 tab PO BID RF: 0 Discontinued acetaminophen 500 mg Capsule 1,000 mg PO DAILY PRN (Reason: Pain) RF: 0 Discharge Orders: Discharge Order (Routine); Ordered 08/25/19 Ordered By: Zack Hart Admission Data Admit Date/Time: 08/23/19 09:12 Attending Provider: Zack Hart Admit Provider: Zack Hart Primary Care Provider: Alberto Adames Other Interventions: Discharge Summary Assessment (RN) Last Done: 08/25/19 13:52 DC Date/Time DO NOT enter until pt leaves facility: 08/25/19 14:45
== END 2019-08-25 14:45 | disposition home health service (06) | DRG 470 ==
LOC: ASU 05:11 → 3E 09:12

== ENCOUNTER 2019-09-06 23:09 | Inpatient (IN) ==
[2019-09-07] MEDS ORDERED: fentaNYL citrate 100 MCG/2 ML VIAL IV STA (00:13)
[2019-09-07 00:33] LABS: Basophils # (auto) 0.02 K/uL (0-0.2); Basophils % (auto) 0.2 %; Eosinophils # (auto) 0.03 K/uL (0-0.5); Eosinophils % (auto) 0.3 %; Hematocrit (blood only) 31.1 % (37-47); Hemoglobin 10.7 g/dL (12.0-16.0); Immature Granulocytes # (auto) 0.03 K/uL (0.00-0.02); Immature Granulocytes % (auto) 0.3 %; Lymphocytes % (auto) 12.8 %; Mean Corpuscular Hemoglobin 34.3 pg (25-34); Mean Corpuscular Hgb Conc 34.4 g/dL (32-36); Mean Corpuscular Volume 99.7 fL (80-100); Mean Platelet Volume 9.9 fL (7.4-10.4); Monocytes # (auto) 0.84 K/uL (0.11-0.59); Monocytes % (auto) 8.9 %; Neutrophils # (auto) 7.29 K/uL (1.4-6.5); Neutrophils % (auto) 77.5 %; Platelet Count 493 K/uL (130-400); RDW Coefficient of Variation 14.4 % (11.5-14.5); RDW Standard Deviation 51.6 fL (36.4-46.3); Red Blood Count 3.12 M/uL (4.2-5.4); White Blood Count 9.41 K/uL (4.8-10.8)
--- NOTE | 2019-09-07 00:33 | Emergency Department Note ---
ED Visit Note This is an 88-year-old female patient with a recent hip replacement who presents to the emergency department with severe pain in the right hip. She explains that 4 days ago, she had some minimal pain to the hip but that seemed to resolve and then again got much worse today to the point that she almost fell. On physical exam, the patient appears uncomfortable. Nursing staff are preparing to give her pain medication. She has limited range of motion to the right hip. She has a surgical incision with Steri-Strips in place which appears well- healing. She has normal pedal pulses on exam. X-rays reveal evidence of periprosthetic fracture. The patient will be admitted to internal medicine with orthopedics consultation. .
[2019-09-07 00:47] LABS: Partial Thromboplastin Ratio 0.9; Partial Thromboplastin Time 25.2 Seconds (21.0-31.0); Prothrombin Time 10.6 Seconds (9.0-12.0)
[2019-09-07 00:51] LABS: BUN Creatinine Ratio 16.4 (10-20); Calcium 9.4 mg/dl (8.5-10.1); Creatinine Clr Calc Pharmacy 41.4 ml/min; Est GFR (African American) 73.5; Est GFR (Non-African American) 63.4; Potassium 3.9 mmol/L (3.5-5.1)
[2019-09-07 01:02] LABS: Appearance Urine Clear (Clear); Bilirubin Urine Negative (Negative); Blood Urine Negative (Negative); Color Urine Dark Yellow; Glucose Urine UA Negative (Negative); Ketones Urine 1+ (Negative); Leukocyte Esterase Urine Negative (Negative); Nitrite Urine Negative (Negative); Protein Urine Negative (Negative); Specific Gravity Urine 1.014 (1.000-1.030); Urobilinogen Urine Negative (Negative)
--- NOTE | 2019-09-07 01:08 | Emergency Department Note ---
History of Present Illness General Chief complaint: Hip Pain Stated complaint: HIP/LEG PAIN Time Seen by Provider: 09/06/19 23:12 Source: patient Mode of arrival: EMS Limitations: no limitations History of Present Illness Maximum Pain Intensity: 6 This patient is an 88-year-old female who presents the emergency department accompanied by her daughter and a friend for evaluation of right hip pain. The patient reports that she had a hip replacement 2 weeks [address] Hart. She reports this was done due to arthritis. She states that she seemed to be healing very well until 5 days ago. She has had progressively worsening pain in the right hip and anterior thigh since then. She states that she has been having trouble with transfers. Her daughter reports that this morning, she walked about 30 steps to go to breakfast and when walking back, she was unable to walk any further due to the pain. The patient denies any specific injury to the hip, although notes that she may have twisted it while transferring from the commode back to her couch. She has been taking tramadol and Tylenol for pain without good relief. She rates her discomfort a 6/10. Home Medications Home Medications Medication Instructions Recorded Confirmed Type [place]-3 (with dpa) 1 cap PO QAM 06/28/19 09/06/19 History PreserVision AREDS-2 1 tab PO BID 06/28/19 09/06/19 History albuterol sulfate [ProAir HFA] 1 puff INHALATION Q6H PRN 06/28/19 09/06/19 History calcium carbonate-vitamin D3 1 cap PO QAM 06/28/19 09/06/19 History [Calcium 600 with Vitamin D3] carvedilol 3.125 mg PO BIDM 06/28/19 09/06/19 History diclofenac sodium 2 g TOPICAL QID PRN 06/28/19 09/06/19 History latanoprost 1 drp OPB PM 06/28/19 09/06/19 History loratadine 10 mg PO DAILY 06/28/19 09/06/19 History omeprazole 20 mg PO QAM 06/28/19 09/06/19 History phenylephrine HCl 10 mg PO Q6H PRN 06/28/19 09/06/19 History solifenacin [Vesicare] 5 mg PO QAM 06/28/19 09/06/19 History aspirin [Ecotrin Low Strength] 81 mg PO BID 28 Days #56 tab 08/24/19 09/06/19 Rx sennosides [Senokot] 17.2 mg PO HS PRN #28 tab 08/24/19 09/06/19 Rx acetaminophen [Tylenol Extra 500 - 1,000 mg PO Q8 PRN 09/06/19 09/06/19 History Strength] calcium-vit B complx-FA [Complex 1 tab PO QAM 09/06/19 09/06/19 History B-50] diphenhydramine HCl [Benadryl] 25 mg PO DIRECTED PRN 09/06/19 09/06/19 History meclizine 25 mg PO DAILY PRN 09/06/19 09/06/19 History multivitamin 1 tab PO BID 09/06/19 09/06/19 History tramadol 50 mg PO Q6H PRN 09/06/19 09/06/19 History Allergies Allergy/AdvReac Type Severity Reaction Status Date / Time bee venom protein (honey bee) Allergy Intermediate SWELLING Verified 09/06/19 23:48 estrogens, conjugated Allergy Intermediate SWELLING Verified 09/06/19 23:48 OF EYES ferrous sulfate Allergy Intermediate SWELLING Verified 09/06/19 23:48 OF EYES oxycodone Allergy Intermediate Hives, Verified 09/06/19 23:48 swelling around eyes. Sulfa (Sulfonamide Allergy Intermediate HIVES, Verified 09/06/19 23:48 Antibiotics) SWELLING OF EYES adhesive AdvReac Intermediate SKIN Verified 09/06/19 23:48 IRRITATION-REDNESS, ITCHING MADSEN Allergy Intermediate Hives Uncoded 09/06/19 23:48 Past Med/Surg History Medical History GERD (gastroesophageal reflux disease) controlled Glaucoma Hearing deficit History of bronchitis inhaler PRN Hx of deep venous thrombosis LLE DVT post-op hysterectomy (1977) Hypertension Obesity Osteoarthritis Refusal of blood transfusions as patient is Yarsanism Urinary frequency + urgency Surgical History History of colonoscopy History of cystocele rectocele, and vaginal surgery History of esophagogastroduodenoscopy (EGD) History of total left knee replacement History of total right knee replacement Hx of total hysterectomy Social History Preferred Language: Kinyarwanda Communication Ability: Effective Psychologist Developmental Required: No Beliefs That Will Affect Care: Buddhism Buddhism Beliefs: jehovah witness-no blood Current Living Situation: Alone Other Information That Helps Us Care for You: No Feels Safe at Home: Yes Safety Concerns: Feels Safe At This Time Smoking Status: Never smoker Second Hand Exposure: No ; Hx Alcohol Use: No Hx Substance Use: No Review of Systems A total of 10 systems reviewed and were otherwise negative Physical Exam Vital Signs Vital Signs - 24 hr 09/06/19 23:14 09/06/19 23:17 09/06/19 23:30 Temperature 37.2 C Temperature Source Oral Sepsis Recent Fever Within 48 Hours No Sepsis New/Unexplained Change in Mental Status No Sepsis Action Taken by Nursing No Action Required Pulse Rate 74 74 72 Pulse Rate [Apical] 73 Pulse Rate from SpO2 Sensor 74 73 Pulse Rhythm Regular Pulse Rhythm [Apical] Regular Pulse Strength Normal Pulse Strength [Apical] Normal Respiratory Rate 21 14 17 Respiratory Effort / Characteristics Non-Labored Non-Labored Respiratory Depth Normal Normal Respiratory Pattern Regular Regular Blood Pressure 183/109 H 183/109 H 180/80 H Blood Pressure [Right Arm] 180/80 H Blood Pressure Mean 133 133 113 Blood Pressure Mean [Right Arm] 113 Blood Pressure Position Lying Blood Pressure Position [Right Arm] Lying Pulse Oximetry 97 98 97 Oxygen Delivery Method Room Air Room Air 09/07/19 00:00 09/07/19 00:17 09/07/19 00:30 Temperature Temperature Source Sepsis Recent Fever Within 48 Hours Sepsis New/Unexplained Change in Mental Status Sepsis Action Taken by Nursing Pulse Rate 74 72 75 Pulse Rate [Apical] Pulse Rate from SpO2 Sensor 74 71 75 Pulse Rhythm Pulse Rhythm [Apical] Pulse Strength Pulse Strength [Apical] Respiratory Rate 18 18 23 Respiratory Effort / Characteristics Respiratory Depth Respiratory Pattern Blood Pressure 170/90 H 191/70 H Blood Pressure [Right Arm] Blood Pressure Mean 116 110 Blood Pressure Mean [Right Arm] Blood Pressure Position Blood Pressure Position [Right Arm] Pulse Oximetry 98 97 93 Oxygen Delivery Method 09/07/19 01:00 Temperature Temperature Source Sepsis Recent Fever Within 48 Hours Sepsis New/Unexplained Change in Mental Status Sepsis Action Taken by Nursing Pulse Rate 71 Pulse Rate [Apical] Pulse Rate from SpO2 Sensor 71 Pulse Rhythm Pulse Rhythm [Apical] Pulse Strength Pulse Strength [Apical] Respiratory Rate 22 Respiratory Effort / Characteristics Respiratory Depth Respiratory Pattern Blood Pressure 163/66 H Blood Pressure [Right Arm] Blood Pressure Mean 98 Blood Pressure Mean [Right Arm] Blood Pressure Position Blood Pressure Position [Right Arm] Pulse Oximetry 96 Oxygen Delivery Method VITALS: Vitals are noted on the nurse's note and reviewed by myself. Vital signs stable. GENERAL: This is an 88-year-old female, in no acute distress, well-developed well-nourished. SKIN: There is a well-healing incision to the right lateral hip without signs of infection. EYES: Pupils equal round and reactive to light and accommodation. MOUTH: Mucous membranes moist. NECK: Supple without nuchal rigidity. Cervical spine is nontender. HEART: Regular rate and rhythm without murmurs gallops or rubs. LUNGS: Clear to auscultation bilaterally without wheezes, rales or rhonchi. ABDOMEN: Positive bowel sounds x 4. Soft, nontender to palpation. MUSCULOSKELETAL: There are no obvious deformities. There is tenderness to palpation of the lateral and anterior right proximal femur. No tenderness of the knee or ankle. Dorsalis pedis pulse 2+. EXTREMITIES: No peripheral edema. NEURO: Patient was alert and oriented to person place and time. Sensation intact distally. Course Consultations Consultation #1: Dr. Hart [facility] Orthopedics Consultation #2: Dr. Cabrera [facility] hospitalist Administered Medications Discontinued Medications Fentanyl Citrate (Fentanyl Citrate) 50 mcg IV NOW STA Stop: 09/07/19 00:14 Last Admin: 09/07/19 00:22 Dose: 50 mcg Documented by: [id number] Medical Decision Making Differential Diagnosis Differential diagnosis includes fracture, postoperative infection, postoperative pain, muscle strain, among others. Medical Records Attestation: I reviewed the patient's medical records. Home Medications Current Medication List: was personally reviewed by me Laboratory Data Attestation: I reviewed the patient's lab results. Result diagrams: 09/07/19 00:15 09/07/19 00:15 Lab Results 09/07/19 09/07/19 09/07/19 Range/Units 00:15 00:15 00:15 WBC 9.41 (4.8-10.8) K/uL RBC 3.12 L (4.2-5.4) M/uL Hgb 10.7 L (12.0-16.0) g/dL Hct 31.1 L (37-47) % MCV 99.7 (80-100) fL MCH 34.3 H (25-34) pg MCHC 34.4 (32-36) g/dL RDW Std Deviation 51.6 H (36.4-46.3) fL RDW Coeff of Brigitte 14.4 (11.5-14.5) % Plt Count 493 H (130-400) K/uL MPV 9.9 (7.4-10.4) fL Immature Gran % (Auto) 0.3 % Neut % (Auto) 77.5 % Lymph % (Auto) 12.8 % [place] % (Auto) 8.9 % Eos % (Auto) 0.3 % Baso % (Auto) 0.2 % Immature Gran # (Auto) 0.03 H (0.00-0.02) K/uL Neut # (Auto) 7.29 H (1.4-6.5) K/uL Lymph # (Auto) 1.20 (1.2-3.4) K/uL [place] # (Auto) 0.84 H (0.11-0.59) K/uL Eos # (Auto) 0.03 (0-0.5) K/uL Baso # (Auto) 0.02 (0-0.2) K/uL PT 10.6 (9.0-12.0) Seconds INR 1.0 (0.9-1.1) APTT 25.2 (21.0-31.0) Seconds PTT Ratio 0.9 Sodium 137 (136-145) mmol/L Potassium 3.9 (3.5-5.1) mmol/L Chloride 102 (98-107) mmol/L Carbon Dioxide 28 (21-32) mmol/L Anion Gap 7.0 (3-11) BUN 14 (7-18) mg/dl Creatinine 0.83 (0.6-1.2) mg/dl Est Cr Clr Drug Dosing 41.4 ml/min Est GFR ( Amer) 73.5 Est GFR (Non-Af Amer) 63.4 BUN/Creatinine Ratio 16.4 (10-20) Glucose 104 H (70-99) mg/dl Calcium 9.4 (8.5-10.1) mg/dl Blood Type Antibody Screen 09/07/19 Range/Units 00:15 WBC (4.8-10.8) K/uL RBC (4.2-5.4) M/uL Hgb (12.0-16.0) g/dL Hct (37-47) % MCV (80-100) fL MCH (25-34) pg MCHC (32-36) g/dL RDW Std Deviation (36.4-46.3) fL RDW Coeff of Brigitte (11.5-14.5) % Plt Count (130-400) K/uL MPV (7.4-10.4) fL Immature Gran % (Auto) % Neut % (Auto) % Lymph % (Auto) % [place] % (Auto) % Eos % (Auto) % Baso % (Auto) % Immature Gran # (Auto) (0.00-0.02) K/uL Neut # (Auto) (1.4-6.5) K/uL Lymph # (Auto) (1.2-3.4) K/uL [place] # (Auto) (0.11-0.59) K/uL Eos # (Auto) (0-0.5) K/uL Baso # (Auto) (0-0.2) K/uL PT (9.0-12.0) Seconds INR (0.9-1.1) APTT (21.0-31.0) Seconds PTT Ratio Sodium (136-145) mmol/L Potassium (3.5-5.1) mmol/L Chloride (98-107) mmol/L Carbon Dioxide (21-32) mmol/L Anion Gap (3-11) BUN (7-18) mg/dl Creatinine (0.6-1.2) mg/dl Est Cr Clr Drug Dosing ml/min Est GFR ( Amer) Est GFR (Non-Af Amer) BUN/Creatinine Ratio (10-20) Glucose (70-99) mg/dl Calcium (8.5-10.1) mg/dl Blood Type A Positive Antibody Screen NEGATIVE Imaging Data Attestation: I personally reviewed and interpreted this imaging study as follows: My Impression: RIGHT FEMUR, PELVIS: Right periprosthetic hip fracture with mild displacement. CHEST 1 VIEW: No pulmonary infiltrates or signs of failure. Blood Pressure Blood Pressure Findings: Elevated blood pressure Blood Pressure Disposition: further management by hospitalist MDM Narrative This patient is an 88-year-old female who presents to the emergency department for evaluation of right hip pain. Patient had a hip replacement 2 weeks ago. X-rays performed show a periprosthetic fracture. I spoke with the orthopedist, who recommended admission to the hospitalist service. Case was discussed with the [facility] hospitalist service who agreed to evaluate the patient for further care. Laboratory studies were drawn here and show a mild anemia. Patient did receive a dose of fentanyl in the emergency department for pain. The patient was independently evaluated by Dr. Paz, who agreed with my assessment and treatment plan. Impression & Plan [place]-prosthetic fracture of femur following total hip arthroplasty Discharge Plan Visit Data *Final* Discharge Date/Time: 09/07/19 01:51 Chief Complaint: Hip Pain Stated Complaint: HIP/LEG PAIN Other Complaint: Leg Injury/Pain ED Provider: Hannah Paz ED Midlevel Provider: Monica Stephen Discharge Problem: [place]-prosthetic fracture of femur following total hip arthroplasty Patient Disposition: Admitted As Inpatient Discharge Instructions Interventions: ED Discharge Assessment Last Done: 09/07/19 01:51 Discharge Problem: [place]-prosthetic fracture of femur following total hip arthroplasty Qualifiers: Encounter type: initial encounter Qualified Code(s): M97.8XXA - Periprosthetic fracture around other internal prosthetic joint, initial encounter
[2019-09-07] MEDS ORDERED: ONDANSETRON INJ 2 MG/ML 2 ML VIAL IV PRN (02:14)
[2019-09-07] MEDS ORDERED: SENNA 8.6 MG TAB PO PRN (02:14)
[2019-09-07] MEDS ORDERED: POLYETHYLENE (MIRALAX) 17 GM PACK PO PRN (02:14)
[2019-09-07] MEDS ORDERED: ACETAMINOPHEN 325 MG TAB PO PRN (02:14)
[2019-09-07] MEDS ORDERED: DICLOFENAC SOD 1% GEL 100 GM TUBE EXT PRN (02:14)
[2019-09-07] MEDS ORDERED: ALBUTEROL HFA 8 GM INHALER INH PRN (02:14)
--- NOTE | 2019-09-07 03:09 | History and Physical Report ---
DATE OF ADMISSION: 09/07/2019 CHIEF COMPLAINT: Right hip pain. HISTORY OF PRESENT ILLNESS: This is an 88-year-old female with past medical history significant for hyperlipidemia, chronic diastolic CHF, chronic kidney disease stage III, venous insufficiency, hypertension, GERD, urinary incontinence, general osteoarthrosis. A couple of weeks ago, had right hip replacement surgery. Lives alone currently, however, since surgery daughter living with her. She walks with a walker. Since last few days she is having pain in the right hip. Today, her friend was helping her to go to bathroom and was having severe pain in the right hip, and decided to come to the hospital. Here the imaging studies showed right periprosthetic fracture. Ortho was notified by the ER.To admit to the hospital and will be seen by ortho in the a.m. Currently resting comfortably and hemodynamically stable. Denies any headache, no dizziness, no blurred vision, hard of hearing. No runny nose, no sore throat, no difficulty swallowing. Appetite is okay. No chest pain or shortness of breath. No cough, no nausea, no vomiting, no abdominal pain. Normal bowel and bladder movements. No burning micturition. ALLERGIES: BEE VENOM, ESTROGEN, FERROUS SULFATE, OXYCODONE, SULFA ANTIBIOTICS, ADHESIVE , MADSEN. PAST MEDICAL HISTORY: As mentioned above. PAST SURGICAL HISTORY: Bilateral knee arthroplasty, colonoscopy with cautery and lesion removal, cystoscopy, EGD with biopsy, repair of vagina, total abdominal hysterectomy with removal of tubes, right total hip replacement on 08/23/2019. MEDICATIONS: The patient is on aspirin 81 mg p.o. b.i.d., Senokot 2 tablets p.o. at bedtime p.r.n., Ultram 50 mg p.o. q. 6 hours p.r.n., diclofenac sodium apply 2 grams topically to affected area 4 times daily as needed, Coreg 3.125 mg p.o. b.i.d., omeprazole 20 mg p.o. daily, VESIcare 5 mg p.o. daily, albuterol 2 puffs every 4 hours p.r.n., latanoprost 0.005% ophthalmic solution, instill 1 drop into both eyes at bedtime, Benadryl 1 tablet at bedtime p.r.n., [place] 3 fish oil 1 capsule daily, phenylephrine one tablet p.r.n. for nasal congestion, calcium plus vitamin D 1 tablet daily, loratadine 10 mg daily, meclizine 25 mg p.o. t.i.d. p.r.n., B complex vitamins daily, PreserVision capsules daily, Tylenol Extra Strength 500 mg 1 tablet every 6 hours p.r.n. FAMILY HISTORY: Significant for brother had brain cancer, thyroid disorder; father had hiatal hernia; mother had cancer. SOCIAL HISTORY: , lives alone. Currently, daughter is living with her in the nighttime since the surgery. No tobacco, no alcohol use, no drug use. REVIEW OF SYSTEMS: As per HPI. Rest of the review of systems negative. The patient has no blood transfusions. Patient is a [employer]. PHYSICAL EXAMINATION: GENERAL: The patient is old and frail, not in acute distress. VITAL SIGNS: Temperature 37.2, pulse 73, respiratory rate 16, blood pressure 180/80, oxygen 96% on room air. HEENT: No pallor, no icterus. Pupils equal, round, and reactive to light. NECK: No JVD, no neck masses, no carotid bruits. CARDIOVASCULAR: S1, S2 heard, regular rate and rhythm, no murmur, no gallop. RESPIRATORY SYSTEM: Normal AP diameter. No accessory muscle use. No wheezing, no crackles. ABDOMEN: Soft, bowel sounds present, nontender. No distention. CENTRAL NERVOUS SYSTEM: Alert and awake and oriented, not in acute distress. Moves extremities. EXTREMITIES: No edema, no erythema. LABORATORY DATA: WBC 9.4, hemoglobin 10.7, hematocrit 31.1, platelets 493. PT 10.6, INR 1, APTT 25.2. Sodium 137, potassium 3.9, chloride 102, bicarbonate 28, BUN 14, creatinine 0.8, serum glucose 104, calcium 9.4. Urinalysis negative. IMAGING DATA: Chest x-ray, no acute findings seen. Pelvic x-ray and femur x-ray, report is pending. EKG: Normal sinus rhythm with rate of 69, no acute ST changes seen. ASSESSMENT AND PLAN: This is an 88-year-old female who recently had right hip replacement surgery, who comes in with right hip pain and found to have periprosthetic fracture. 1. Right hip periprosthetic fracture. Right hip replacement done on 08/23/2019. At home and having ambulatory dysfunction and pain in right hip region. Ortho was notified by the ER. We will keep her n.p.o. after midnight. Pain control, IV fluids. Surgery as per orthopedics . EKG and chest x-ray are okay. Labs are fine.Patient is at acceptable risk to proceed with any procedures. 2. History of chronic diastolic congestive heart failure, on Coreg. Not on any diuretics. Getting fluids . Will monitor for volume overload. 3. Gastroesophageal reflux disease, continue Prilosec. 4. Urinary incontinence, on VESIcare. 5. Hypertension, Coreg. Monitor the blood pressure. 6. Chronic kidney disease stage III, stable. Follow the labs. 7. Deep venous thrombosis prophylaxis, sequential compression devices for now. 8. Disposition: Admit to medical floor. Expect to discharge home and follow with her family doctor. Level 1 full code. PT and OT prior to discharge. Social service to help with discharge planning. MADISYN
[2019-09-07] MEDS: SODIUM CHLORIDE 0.9% 1000ML 1,000 ML IV SCH ×2 (03:58→16:14)
[2019-09-07] MEDS: TRAMADOL HCL 50 MG TABLET PO PRN ×2 (04:01→18:03)
--- NOTE | 2019-09-07 06:01 | XRay Report ---
XR pelvis 1-2V routine CLINICAL HISTORY: right hip pain, recent replacement COMPARISON: 08/23/2019 DISCUSSION: Oblique fracture proximal femoral shaft. Pre-existing total right hip arthroplasty. No evidence for significant distraction or displacement. Severe degenerative changes left hip. There is no evidence for soft tissue swelling. IMPRESSION: Fracture proximal right femoral shaft adjacent to the right total hip arthroplasty. The above report was generated using voice recognition software. It may contain grammatical, syntax or spelling errors. Electronically signed by: Chip Feliz M.D. 09/07/2019 5:58 AM
--- NOTE | 2019-09-07 06:01 | XRay Report ---
XR femur RT 2V routine CLINICAL HISTORY: right hip pain, recent replacement COMPARISON: None. DISCUSSION: Total right hip arthroplasty. Superimposed oblique fracture proximal femoral shaft. No ev idence for acetabular protrusion. Severe degenerative change left hip. Total right hip arthroplasty pre-existing. There is no evidence for soft tissue swelling. IMPRESSION: Oblique fracture proximal femoral shaft adjacent to the right total hip arthroplasty. The above report was generated using voice recognition software. It may contain grammatical, syntax or spelling errors. Electronically signed by: Chip Feliz M.D. 09/07/2019 5:59 AM
--- NOTE | 2019-09-07 06:03 | XRay Report ---
XR chest 1V portable CLINICAL HISTORY: preop COMPARISON STUDY: 08/03/2019 FINDINGS: Current images are lordotic presentation. Grade artificial fullness of the superior mediast inum. Lungs are clear. Diaphragms are smooth. IMPRESSION: No acute process. The above report was generated using voice recognition software. It may contain grammatical, syntax or spelling errors. Electronically signed by: Chip Feliz M.D. 09/07/2019 6:01 AM
[2019-09-07 07:46] LABS: Basophils # (auto) 0.02 K/uL (0-0.2); Basophils % (auto) 0.3 %; Eosinophils # (auto) 0.03 K/uL (0-0.5); Eosinophils % (auto) 0.4 %; Hematocrit (blood only) 29.1 % (37-47); Hemoglobin 9.6 g/dL (12.0-16.0); Immature Granulocytes # (auto) 0.02 K/uL (0.00-0.02); Immature Granulocytes % (auto) 0.3 %; Lymphocytes # (auto) 1.54 K/uL (1.2-3.4); Lymphocytes % (auto) 20.1 %; Mean Platelet Volume 9.6 fL (7.4-10.4); Monocytes # (auto) 0.92 K/uL (0.11-0.59); Neutrophils # (auto) 5.12 K/uL (1.4-6.5); Neutrophils % (auto) 66.9 %; Platelet Count 455 K/uL (130-400); RDW Coefficient of Variation 14.5 % (11.5-14.5); RDW Standard Deviation 51.9 fL (36.4-46.3); Red Blood Count 2.91 M/uL (4.2-5.4); White Blood Count 7.65 K/uL (4.8-10.8)
--- NOTE | 2019-09-07 07:50 | Orthopedic Consultation ---
Date of Consultation September 07, 2019 Assessment & Plan (1) [place]-prosthetic fracture of femur following total hip arthroplasty: I have indicated the patient for revision right total hip arthroplasty, femoral component, ORIF proximal femur fx. The risks, benefits, alternatives and complications of the procedure were explained to the patient detail which include infection, blood clots, acute blood loss, injury to surrounding nerves, bone, vessels, soft tissue, arthrofibrosis, hip dislocation, leg length discrepancy, failure of the implants, malunion, nonunion, need for additional surgery, loss of limb and loss of life. Alternatives include no surgery however this would result in worsening pain and symptoms and inability to ambulate. The patient wished to proceed with surgical intervention. The patient is a [employer] and has a strict no blood product policy in place. She understands the risk of surgery especially revision surgery will lead to increased risk of bleeding which could subsequently lead to acute postop blood loss anemia which could damage oxygen sensitive organs including brain, heart, kidneys. Patient understands the risk and is willing to proceed with surgical intervention. Pending availability of orthopedic instrumentation which has to be brought in for her surgery and OR availability we will proceed with revision of right total hip arthroplasty. Thank you for the consultation History of Present Illness Reason for Consultation: Periprosthetic fracture right total hip arthroplasty Attending Physician: Raúl Cerrato MD History of Present Illness The patient is an 88-year-old female, Rest[employer], who has recent surgical history for right total hip arthroplasty performed on 08/23/2019. She had an uneventful postoperative course. However the patient reports several days of increasing pain to her right hip. She does not recall a fall or how she hurt her hip however she does report a twisting/falling injury where she caught herself. Due to increasing pain to her right hip and inability to ambulate she was seen in [facility] emergency department. X-rays taken demonstrated a periprosthetic femur fracture of her right total hip arthroplasty. She was admitted for further inpatient observation and treatment. She denies any numbness or tingling on her right lower extremity. Denies hitting head or loss of consciousness. Allergies Allergy/AdvReac Type Severity Reaction Status Date / Time bee venom protein (honey bee) Allergy Intermediate SWELLING Verified 09/06/19 23:48 estrogens, conjugated Allergy Intermediate SWELLING Verified 09/06/19 23:48 OF EYES ferrous sulfate Allergy Intermediate SWELLING Verified 09/06/19 23:48 OF EYES oxycodone Allergy Intermediate Hives, Verified 09/06/19 23:48 swelling around eyes. Sulfa (Sulfonamide Allergy Intermediate HIVES, Verified 09/06/19 23:48 Antibiotics) SWELLING OF EYES adhesive AdvReac Intermediate SKIN Verified 09/06/19 23:48 IRRITATION-REDNESS, ITCHING MADSEN Allergy Intermediate Hives Uncoded 09/06/19 23:48 Home Medications Home Medications Medication Instructions Recorded Confirmed Type [place]-3 (with dpa) 1 cap PO QAM 06/28/19 09/06/19 History PreserVision AREDS-2 1 tab PO BID 06/28/19 09/06/19 History albuterol sulfate [ProAir HFA] 1 puff INHALATION Q6H PRN 06/28/19 09/06/19 History calcium carbonate-vitamin D3 1 cap PO QAM 06/28/19 09/06/19 History [Calcium 600 with Vitamin D3] carvedilol 3.125 mg PO BIDM 06/28/19 09/06/19 History diclofenac sodium 2 g TOPICAL QID PRN 06/28/19 09/06/19 History latanoprost 1 drp OPB PM 06/28/19 09/06/19 History loratadine 10 mg PO DAILY 06/28/19 09/06/19 History omeprazole 20 mg PO QAM 06/28/19 09/06/19 History phenylephrine HCl 10 mg PO Q6H PRN 06/28/19 09/06/19 History solifenacin [Vesicare] 5 mg PO QAM 06/28/19 09/06/19 History aspirin [Ecotrin Low Strength] 81 mg PO BID 28 Days #56 tab 08/24/19 09/06/19 Rx sennosides [Senokot] 17.2 mg PO HS PRN #28 tab 08/24/19 09/06/19 Rx acetaminophen [Tylenol Extra 500 - 1,000 mg PO Q8 PRN 09/06/19 09/06/19 History Strength] calcium-vit B complx-FA [Complex 1 tab PO QAM 09/06/19 09/06/19 History B-50] diphenhydramine HCl [Benadryl] 25 mg PO DIRECTED PRN 09/06/19 09/06/19 History meclizine 25 mg PO DAILY PRN 09/06/19 09/06/19 History multivitamin 1 tab PO BID 09/06/19 09/06/19 History tramadol 50 mg PO Q6H PRN 09/06/19 09/06/19 History Patient History Medical History GERD (gastroesophageal reflux disease) controlled Glaucoma Hearing deficit History of bronchitis inhaler PRN Hx of deep venous thrombosis LLE DVT post-op hysterectomy (1977) Hypertension Obesity Osteoarthritis Refusal of blood transfusions as patient is [employer] Urinary frequency + urgency Surgical History History of colonoscopy History of cystocele rectocele, and vaginal surgery History of esophagogastroduodenoscopy (EGD) History of total left knee replacement History of total right knee replacement Hx of total hysterectomy Social History Preferred Language: [place] Verde[place] Communication Ability: Effective Air Bag Buffer Required: No Beliefs That Will Affect Care: Anabaptist Anabaptist Beliefs: jehovah witness-no blood Current Living Situation: Alone Other Information That Helps Us Care for You: No Feels Safe at Home: Yes Safety Concerns: Feels Safe At This Time Smoking Status: Never smoker Second Hand Exposure: No ; Hx Alcohol Use: No Hx Substance Use: No Review of Systems Review of Systems: All systems reviewed & are unremarkable except as noted in HPI & below Constitutional: as per Subjective / HPI Physical Exam Physical Exam: RLE NVSI +EHL/FHL/TA/GS SILT grossly, +2 DP pulse, compartments soft NT, dressing cdi. Painful passive and active range of motion of the hip. Constitutional: WD/WN, vitals as above Results & Data Vital Signs (Past 12 Hours) Vital Signs Temp Pulse Pulse Resp BP BP Pulse Ox 09/07/19 07:15 36.8 C 72 17 144/79 H 94 09/07/19 02:40 36.9 C 70 18 160/63 H 93 09/07/19 01:30 74 22 155/56 H 97 09/07/19 01:00 71 22 163/66 H 96 09/07/19 00:30 75 23 191/70 H 93 09/07/19 00:17 72 18 170/90 H 97 09/07/19 00:00 74 18 98 09/06/19 23:30 72 73 17 180/80 H 180/80 H 97 09/06/19 23:17 37.2 C 74 14 183/109 H 98 09/06/19 23:14 74 21 183/109 H 97 (1) [place]-prosthetic fracture of femur following total hip arthroplasty Encounter type: initial encounter Qualified Code(s): M97.8XXA - Periprosthetic fracture around other internal prosthetic joint, initial encounter; Z96.649 - Presence of unspecified artificial hip joint
[2019-09-07] MEDS: MoRPHine SULFATE 2 MG/ML CARP IV PRN (07:53)
[2019-09-07] MEDS: PANTOprazole 40 MG TAB PO SCH (07:54)
[2019-09-07] MEDS: carvediloL 3.125 MG TAB PO SCH ×2 (07:54→16:15)
[2019-09-07] MEDS: LORATADINE 10 MG TAB PO SCH (07:55)
[2019-09-07 08:18] LABS: BUN Creatinine Ratio 15.2 (10-20); Creatinine Clr Calc Pharmacy 43.9 ml/min; Est GFR (African American) 81.7; Est GFR (Non-African American) 70.5; Potassium 3.6 mmol/L (3.5-5.1)
--- NOTE | 2019-09-07 17:07 | Anesthesiology Consultation ---
Date of Service September 07, 2019 Assessment & Plan (1) Encounter for pre-operative examination: Chart Review Chart Review: Acceptable Risk for Surgery (patient is a Mu-ism and refuses blood products. Due in part to her recent hip replacement, her Hb is 9.6) History Surgery Operation Date: 09/08/19 08:15 Proposed Procedures p Right Total Hip Revision - Zack Hart DO Height/Weight Height: 4 ft 11 in Weight: 68.6 kg Allergies Allergy/AdvReac Type Severity Reaction Status Date / Time bee venom protein (honey bee) Allergy Intermediate SWELLING Verified 09/06/19 23:48 estrogens, conjugated Allergy Intermediate SWELLING Verified 09/06/19 23:48 OF EYES ferrous sulfate Allergy Intermediate SWELLING Verified 09/06/19 23:48 OF EYES oxycodone Allergy Intermediate Hives, Verified 09/06/19 23:48 swelling around eyes. Sulfa (Sulfonamide Allergy Intermediate HIVES, Verified 09/06/19 23:48 Antibiotics) SWELLING OF EYES adhesive AdvReac Intermediate SKIN Verified 09/06/19 23:48 IRRITATION-REDNESS, ITCHING MADSEN Allergy Intermediate Hives Uncoded 09/06/19 23:48 Medications Home Medications Medication Instructions Recorded Confirmed Last Taken [place]-3 (with dpa) 1 cap PO QAM 06/28/19 09/06/19 09/06/19 PreserVision AREDS-2 1 tab PO BID 06/28/19 09/06/19 09/06/19 albuterol sulfate [ProAir HFA] 1 puff INHALATION Q6H PRN 06/28/19 09/06/19 Unknown calcium carbonate-vitamin D3 1 cap PO QAM 06/28/19 09/06/19 09/06/19 [Calcium 600 with Vitamin D3] carvedilol 3.125 mg PO BIDM 06/28/19 09/06/19 09/06/19 diclofenac sodium 2 g TOPICAL QID PRN 06/28/19 09/06/19 08/21/19 latanoprost 1 drp OPB PM 06/28/19 09/06/19 09/06/19 loratadine 10 mg PO DAILY 06/28/19 09/06/19 09/06/19 omeprazole 20 mg PO QAM 06/28/19 09/06/19 09/06/19 phenylephrine HCl 10 mg PO Q6H PRN 06/28/19 09/06/19 Unknown solifenacin [Vesicare] 5 mg PO QAM 06/28/19 09/06/19 09/06/19 aspirin [Ecotrin Low Strength] 81 mg PO BID 28 Days #56 tab 08/24/19 09/06/19 09/06/19 sennosides [Senokot] 17.2 mg PO HS PRN #28 tab 08/24/19 09/06/19 Unknown acetaminophen [Tylenol Extra 500 - 1,000 mg PO Q8 PRN 09/06/19 09/06/19 Unknown Strength] calcium-vit B complx-FA [Complex 1 tab PO QAM 09/06/19 09/06/19 09/06/19 B-50] diphenhydramine HCl [Benadryl] 25 mg PO DIRECTED PRN 09/06/19 09/06/19 Unknown meclizine 25 mg PO DAILY PRN 09/06/19 09/06/19 Unknown multivitamin 1 tab PO BID 09/06/19 09/06/19 09/06/19 tramadol 50 mg PO Q6H PRN 09/06/19 09/06/19 Unknown Active Medications Generic Name Dose Route Start Last Admin Trade Name Freq PRN Reason Stop Dose Admin Acetaminophen 650 mg 09/07/19 02:14 09/07/19 07:54 Tylenol PO 10/07/19 02:13 650 mg Q4H PRN Administration pain/fever Carvedilol 3.125 mg 09/07/19 08:00 09/07/19 16:15 Coreg PO 10/07/19 07:59 3.125 mg BIDM GEORGINA Administration Sodium Chloride 1,000 mls @ 80 mls/hr 09/07/19 02:14 09/07/19 16:14 Nss 1000ml IV 10/07/19 02:13 80 mls/hr .[id number] GEORGINA Administration Loratadine 10 mg 09/07/19 09:00 09/07/19 07:55 Claritin PO 10/07/19 08:59 10 mg DAILY GEORGINA Administration Miscellaneous 1 ea 09/07/19 09:00 09/07/19 07:55 Order Awaiting Action N/A 10/07/19 08:59 Not Given DAILY GEORGINA Morphine Sulfate 2 mg 09/07/19 02:14 09/07/19 07:53 Morphine Sulfate IV 09/21/19 02:13 2 mg Q3H PRN Administration Pain Pantoprazole Sodium 40 mg 09/07/19 09:00 09/07/19 07:54 Protonix PO 10/07/19 08:59 40 mg QAM GEORGINA Administration Sennosides 17.2 mg 09/07/19 02:14 09/07/19 07:54 Senokot PO 10/07/19 02:13 17.2 mg HS PRN Administration constipation Tramadol HCl 50 mg 09/07/19 02:14 09/07/19 04:01 Ultram PO 10/07/19 02:13 50 mg Q6H PRN Administration Pain Past Medical History Medical History GERD (gastroesophageal reflux disease) controlled Glaucoma Hearing deficit History of bronchitis inhaler PRN Hx of deep venous thrombosis LLE DVT post-op hysterectomy (1977) Hypertension Obesity Osteoarthritis 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 of blood transfusions as patient is Mu-ism Urinary frequency + urgency Past Family History Family History Other FHx: cancer Past Surgical History Surgical History History of total right hip replacement History of colonoscopy History of cystocele rectocele, and vaginal surgery History of esophagogastroduodenoscopy (EGD) History of total left knee replacement History of total right knee replacement Hx of total hysterectomy Social History Smoking Status: Never smoker Hx Alcohol Use: No Hx Substance Use: No Physical Exam Vital Signs Last Vital Signs Temp 36.9 C 09/07/19 15:02 Pulse 73 09/07/19 15:02 Resp 18 09/07/19 15:02 BP 126/70 09/07/19 15:02 Pulse Ox 96 09/07/19 15:02 Testing Laboratory Results 09/07/19 07:26 09/07/19 07:26 PT 10.6 Seconds (9.0-12.0) 09/07/19 00:15 INR 1.0 (0.9-1.1) 09/07/19 00:15 APTT 25.2 Seconds (21.0-31.0) 09/07/19 00:15 Urine Color Dark Yellow 09/07/19 Unknown Urine Appearance Clear (Clear) 09/07/19 Unknown Urine pH 6.0 (4.5-7.5) 09/07/19 Unknown Ur Specific [place] 1.014 (1.000-1.030) 09/07/19 Unknown Urine Protein Negative (Negative) 09/07/19 Unknown Urine Glucose (UA) Negative (Negative) 09/07/19 Unknown Urine Ketones 1+ (Negative) H 09/07/19 Unknown Urine Nitrite Negative (Negative) 09/07/19 Unknown Ur Leukocyte Esterase Negative (Negative) 09/07/19 Unknown Blood Type A Positive 09/07/19 00:15 Antibody Screen NEGATIVE 09/07/19 00:15 Electrocardiogram Date: 09/07/19 Findings: + NSR @ (69) Chest X-Ray Date: 09/07/19 Findings: + NAD Stress Test Date: 08/19/19 Type: DSE Findings: + WNL
--- NOTE | 2019-09-07 19:03 | Hospitalist Progress Note ---
Date of Service September 07, 2019 Assessment & Plan (1) [place]-prosthetic fracture of femur following total hip arthroplasty: Patient is an 88 yr female with H/O right hip replacement surgery, who comes in with right hip pain and found to have periprosthetic fracture. Right hip periprosthetic fracture H/O Right hip replacement on 08/23/2019 Pelvic X ray:Fracture proximal right femoral shaft adjacent to the right total hip arthroplasty. Femur X ray:Oblique fracture proximal femoral shaft adjacent to the right total hip arthroplasty. Pain control Continue bowel regimen to prevent constipation Appreciate orthopedics input N.p.o. after midnight for revision of right hip arthroplasty tomorrow H/O chronic diastolic CHF Euvolemic Not on diuretics at home Monitor volume status Continue Coreg GERD continue Prilosec Urinary incontinence on Vesicare Hypertension BP slightly elevated initially secondary to pain Continue Coreg CKD III Cr at baseline Monitor renal function Avoid nephrotoxic agents as able DVT Px; SCDs for now CODE STATUS Full code Disposition May need rehab placement PT OT prior to discharge Subjective Patient is seen and examined at bedside Complains of right hip pain Denies any chest pain, shortness of breath, dizziness, nausea, abdominal pain Offers no other complaints Plan for revision of right total hip arthroplasty tomorrow Review of Systems Review of Systems: All systems reviewed & are unremarkable except as noted in HPI & below Physical Exam Physical Exam: Physical Exam: Vitals signs as noted above General Appearance:Moderately built and nourished, no apparent distress Head: normocephalic, Atraumatic Eyes: normal inspection, EOMI Neck: supple, Trachea midline Respiratory/Chest: Normal breath sounds, CTA Cardiovascular: S1, S2, No murmur Abdomen/GI:Soft, Non tender, Bowel sounds present Extremities/Musculoskelatal:normal inspection, Trace edema Neurologic/Psych:AAOX3, grossly no focal neurological deficits, L hip surgical site, decreased ROM due to pain Skin: normal color, warm Results & Data Vital Signs (Past 12 Hours) Vital Signs Temp Pulse Pulse Resp BP Pulse Ox 09/07/19 15:02 36.9 C 73 18 126/70 96 09/07/19 07:15 36.8 C 72 17 144/79 H 94 Laboratory Results Short CBC 09/07/19 09/07/19 Range/Units 00:15 07:26 WBC 9.41 7.65 (4.8-10.8) K/uL Hgb 10.7 L 9.6 L (12.0-16.0) g/dL Hct 31.1 L 29.1 L (37-47) % Plt Count 493 H 455 H (130-400) K/uL BMP 09/07/19 09/07/19 00:15 07:26 Sodium 137 137 Potassium 3.9 3.6 Chloride 102 105 Carbon Dioxide 28 26 BUN 14 12 Creatinine 0.83 0.76 Glucose 104 H 83 Calcium 9.4 9.0 Urine 09/07/19 Range/Units Unknown Urine Color Dark Yellow Urine Appearance Clear (Clear) Urine pH 6.0 (4.5-7.5) Ur Specific [place] 1.014 (1.000-1.030) Urine Protein Negative (Negative) Urine Glucose (UA) Negative (Negative) (1) [place]-prosthetic fracture of femur following total hip arthroplasty Encounter type: initial encounter Qualified Code(s): M97.8XXA - Periprosthetic fracture around other internal prosthetic joint, initial encounter; Z96.649 - Presence of unspecified artificial hip joint
[2019-09-07] MEDS: LATANOPROST 0.005% OP SOLN 2.5 ML BTL OPB SCH (21:07)
[2019-09-08] MEDS: SODIUM CHLORIDE 0.9% 1000ML 1,000 ML IV SCH ×2 (04:48→17:03)
[2019-09-08 07:05] LABS: Hemoglobin 9.9 g/dL (12.0-16.0); Mean Platelet Volume 9.6 fL (7.4-10.4); Platelet Count 462 K/uL (130-400); RDW Coefficient of Variation 14.6 % (11.5-14.5); RDW Standard Deviation 52.2 fL (36.4-46.3); White Blood Count 9.05 K/uL (4.8-10.8)
[2019-09-08 07:34] LABS: BUN Creatinine Ratio 14.8 (10-20); Calcium 8.4 mg/dl (8.5-10.1); Creatinine Clr Calc Pharmacy 51.4 ml/min; Est GFR (African American) 92.5; Est GFR (Non-African American) 79.8; Potassium 3.5 mmol/L (3.5-5.1)
[2019-09-08] MEDS: MoRPHine SULFATE 2 MG/ML CARP IV PRN (07:48)
--- NOTE | 2019-09-08 08:41 | Orthopedic Progress Note ---
Date of Service September 08, 2019 Assessment & Plan (1) [place]-prosthetic fracture of femur following total hip arthroplasty: Due to implant and OR availability we will proceed with surgery the morning of 09/09/2019, 7 AM start. Continue to monitor H&H closely. SCDs and teds for anticoagulation. Bedrest. N.p.o. after midnight. Pain control. I have indicated the patient for revision right total hip arthroplasty, femoral component, ORIF proximal femur fx. The risks, benefits, alternatives and complications of the procedure were explained to the patient detail which include infection, blood clots, acute blood loss, injury to surrounding nerves, bone, vessels, soft tissue, arthrofibrosis, hip dislocation, leg length discrepancy, failure of the implants, malunion, nonunion, need for additional surgery, loss of limb and loss of life. Alternatives include no surgery however this would result in worsening pain and symptoms and inability to ambulate. The patient wished to proceed with surgical intervention. The patient is a [employer] and has a strict no blood product policy in place. She understands the risk of surgery especially revision surgery will lead to increased risk of bleeding which could subsequently lead to acute postop blood loss anemia which could damage oxygen sensitive organs including brain, heart, kidneys. Patient understands the risk and is willing to proceed with surgical intervention. Subjective The patient was seen and examined lying in bed, comfortable, complaining of pain with movement of the right lower extremity. Denies fevers chills nausea vomiting shortness breath or chest pain. Patient's family present at bedside for the duration of the encounter. Review of Systems Review of Systems: All systems reviewed & are unremarkable except as noted in HPI & below Constitutional: as per Subjective / HPI Physical Exam Physical Exam: RLE NVSI +EHL/FHL/TA/GS SILT grossly, +2 DP pulse, compartments soft NT Constitutional: WD/WN, vitals as above Results & Data Vital Signs (Past 12 Hours) Vital Signs Temp Pulse Pulse Resp BP BP Pulse Ox 09/08/19 07:36 37.2 C 80 18 180/90 H 94 09/08/19 06:22 36.7 C 78 19 156/78 H 94 09/07/19 23:27 36.9 C 86 19 159/79 H 93 (1) [place]-prosthetic fracture of femur following total hip arthroplasty Encounter type: initial encounter Qualified Code(s): M97.8XXA - Perip rosthetic fracture around other internal prosthetic joint, initial encounter; Z96.649 - Presence of unspecified artificial hip joint
[2019-09-08] MEDS: PANTOprazole 40 MG TAB PO SCH (09:49)
[2019-09-08] MEDS: carvediloL 3.125 MG TAB PO SCH ×2 (09:49→15:51)
[2019-09-08] MEDS: LORATADINE 10 MG TAB PO SCH (09:49)
[2019-09-08] MEDS: TRAMADOL HCL 50 MG TABLET PO PRN (15:51)
--- NOTE | 2019-09-08 17:35 | Hospitalist Progress Note ---
Date of Service September 08, 2019 Assessment & Plan (1) [place]-prosthetic fracture of femur following total hip arthroplasty: Patient is an 88 yr female with H/O right hip replacement surgery, who comes in with right hip pain and found to have periprosthetic fracture. Right hip periprosthetic fracture H/O Right hip replacement on 08/23/2019 Pelvic X ray:Fracture proximal right femoral shaft adjacent to the right total hip arthroplasty. Femur X ray:Oblique fracture proximal femoral shaft adjacent to the right total hip arthroplasty. Pain control Continue bowel regimen to prevent constipation Appreciate orthopedics input Pain is controlled Planned for revision of right hip arthroplasty tomorrow Continue current management H/O chronic diastolic CHF Euvolemic Not on diuretics at home Monitor volume status Continue Coreg GERD continue Prilosec Urinary incontinence on Vesicare Hypertension BP better today Continue Coreg CKD III Cr at baseline Monitor renal function Avoid nephrotoxic agents as able DVT Px; SCDs for now CODE STATUS Full code Disposition May need rehab placement PT OT prior to discharge Subjective Patient is seen and examined at bedside Lying in bed comfortably Denies any right hip pain today Plan for surgery tomorrow No new complaints Denies any chest pain, shortness of breath, dizziness, nausea, abdominal pain Review of Systems Review of Systems: All systems reviewed & are unremarkable except as noted in HPI & below Physical Exam Physical Exam: Physical Exam: Vitals signs as noted above General Appearance:Moderately built and nourished, no apparent distress Head: normocephalic, Atraumatic Eyes: normal inspection, EOMI Neck: supple, Trachea midline Respiratory/Chest: Normal breath sounds, CTA Cardiovascular: S1, S2, No murmur Abdomen/GI:Soft, Non tender, Bowel sounds present Extremities/Musculoskelatal:normal inspection, Trace edema Neurologic/Psych:AAOX3, grossly no focal neurological deficits, L hip surgical site, decreased ROM due to pain Skin: normal color, warm Results & Data Vital Signs (Past 12 Hours) Vital Signs Temp Pulse Pulse Resp BP BP Pulse Ox 09/08/19 15:15 37.2 C 74 17 123/71 93 09/08/19 11:58 36.9 C 81 16 99/63 L 94 09/08/19 08:37 145/72 H 09/08/19 07:36 37.2 C 80 18 180/90 H 94 09/08/19 06:22 36.7 C 78 19 156/78 H 94 Laboratory Results Short CBC 09/08/19 Range/Units 06:45 WBC 9.05 (4.8-10.8) K/uL Hgb 9.9 L (12.0-16.0) g/dL Hct 30.0 L (37-47) % Plt Count 462 H (130-400) K/uL BMP 09/08/19 06:45 Sodium 138 Potassium 3.5 Chloride 106 Carbon Dioxide 27 BUN 10 Creatinine 0.65 Glucose 91 Calcium 8.4 L (1) [place]-prosthetic fracture of femur following total hip arthroplasty Encounter type: initial encounter Qualified Code(s): M97.8XXA - Periprosthetic fracture around other internal prosthetic joint, initial encounter; Z96.649 - Presence of unspecified artificial hip joint
[2019-09-08] MEDS: LATANOPROST 0.005% OP SOLN 2.5 ML BTL OPB SCH (20:50)
[2019-09-09] MEDS: TRAMADOL HCL 50 MG TABLET PO PRN ×3 (01:39→19:55)
[2019-09-09] MEDS: SODIUM CHLORIDE 0.9% 1000ML 1,000 ML IV SCH ×2 (05:07→15:57)
[2019-09-09] MEDS ORDERED: ROPIVACAINE 0.5% HCL/PF 150 MG, BUPIVACAINE 0.5% MPF 30 ML, EPINEPHrine 0.15 MG, Ketoro... INFIL SCH (06:00)
[2019-09-09] MEDS ORDERED: TRANEXAMIC ACID 1,000 MG in 0.9 % SODIUM CHLORIDE 100 ML IV ONE ×2 (06:00→06:30)
[2019-09-09] MEDS ORDERED: CEFAZOLIN 2000MG 2,000 MG/15 ML SYR IV SCH (06:00)
[2019-09-09] MEDS ORDERED: DEXAMETHASONE SOD INJ 4 MG/ML VIAL ONE (06:30)
[2019-09-09] MEDS ORDERED: KETAMINE HCL INJ 50 MG/ML 10 ML VIAL ONE (06:30)
[2019-09-09] MEDS ORDERED: MIDAZOLAM HCL 1 MG/ML 2ML VIAL ONE (06:30)
[2019-09-09] MEDS ORDERED: ONDANSETRON INJ 2 MG/ML 2 ML VIAL ONE (06:30)
[2019-09-09] MEDS ORDERED: GLYCOPYRROLATE 0.2 MG/ML VIAL ONE ×2 (06:30→09:02)
[2019-09-09] MEDS ORDERED: PROPOFOL IV EMULSION 10 MG/ML 20 ML VIAL IV ONE (06:30)
[2019-09-09] MEDS ORDERED: LIDOCAINE HCL 2% 2 ML VIAL/AMP(20MG/ML) INFIL ONE (06:30)
[2019-09-09] MEDS ORDERED: BUPIVACAINE 0.5 % 5 MG/1 ML PF 10ML VIAL ONE (06:34)
[2019-09-09] MEDS ORDERED: HEPARIN (PORCINE) 1000 UNIT/ML 10 ML (CATH LAB USE ONLY) ONE ×3 (06:37→07:48)
[2019-09-09] MEDS ORDERED: BACITRACIN INJ 50,000 UNIT VIAL ONE (06:37)
--- NOTE | 2019-09-09 06:38 | History & Physical Bridge Note ---
Date of Service September 09, 2019 History & Physical Bridge Note I have examined the patient, reviewed the History & Physical and in the interval since the performance of the History & Physical I have noted the following changes of clinical significance: no changes noted
[2019-09-09] MEDS ORDERED: fentaNYL citrate 100 MCG/2 ML VIAL ONE ×2 (06:39→09:02)
[2019-09-09] MEDS ORDERED: ROCURONIUM BROMIDE 10 MG/ML 5 ML VIAL ONE (06:39)
--- NOTE | 2019-09-09 06:41 | Orthopedic Progress Note ---
Date of Service September 09, 2019 Assessment & Plan (1) [place]-prosthetic fracture of femur following total hip arthroplasty: I have indicated the patient for revision right total hip arthroplasty, femoral component, ORIF proximal femur fx. The risks, benefits, alternatives and complications of the procedure were explained to the patient detail which include infection, blood clots, acute blood loss, injury to surrounding nerves, bone, vessels, soft tissue, arthrofibrosis, hip dislocation, leg length discrepancy, failure of the implants, malunion, nonunion, need for additional surgery, loss of limb and loss of life. Alternatives include no surgery however this would result in worsening pain and symptoms and inability to ambulate. The patient wished to proceed with surgical intervention. The patient is a [employer] and has a strict no blood product policy in place. She understands the risk of surgery especially revision surgery will lead to increased risk of bleeding which could subsequently lead to acute postop blood loss anemia which could damage oxygen sensitive organs including brain, heart, kidneys. Patient understands the risk and is willing to proceed with surgical intervention and informed consent was obtained at this time. 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 A.m. labs pending Cell Saver available to OR Subjective The patient was seen in preoperative holding, comfortable, pain well controlled, no acute issues overnight. Review of Systems Review of Systems: All systems reviewed & are unremarkable except as noted in HPI & below Constitutional: as per Subjective / HPI Physical Exam Physical Exam: RLE NVSI +EHL/FHL/TA/GS SILT grossly, +2 DP pulse, compartments soft NT, incision clean dry and intact. Constitutional: WD/WN, vitals as above Results & Data Vital Signs (Past 12 Hours) Vital Signs Temp Pulse Pulse Resp BP Pulse Ox 09/09/19 06:00 37.3 C 80 16 152/79 H 96 09/08/19 23:36 36.9 C 77 18 144/76 H 94 (1) [place]-prosthetic fracture of femur following total hip arthroplasty Encounter type: initial encounter Qualified Code(s): M97.8XXA - Periprosthetic fracture around other internal prosthetic joint, initial encounter; Z96.649 - Presence of unspecified artificial hip joint
[2019-09-09] MEDS ORDERED: CISATRACURIUM BESYLATE IV SOLN 2 MG/ML 10 ML VIAL IV ONE (07:40)
[2019-09-09] MEDS ORDERED: PHENYLEPHRINE HCL 10 MG/ML VIAL ONE (07:40)
[2019-09-09] MEDS ORDERED: ATROPINE SULFATE 0.1 MG/ML 10ML SYR IV PRN (08:23)
[2019-09-09] MEDS ORDERED: ePHEDrine sulfate 50 MG/ML AMP IV PRN (08:23)
[2019-09-09] MEDS ORDERED: ONDANSETRON INJ 2 MG/ML 2 ML VIAL IV PRN ×2 (08:23→11:13)
[2019-09-09] MEDS ORDERED: FLUMAZENIL 0.1 MG/1 ML 10 ML VIAL IV PRN (08:23)
[2019-09-09] MEDS ORDERED: LABETALOL HCL IV 5 MG/ML 20ML IV PRN (08:23)
[2019-09-09] MEDS ORDERED: PROMETHAZINE HCL 12.5 MG in SODIUM CHLORIDE 0.9% 50 ML IV PRN (08:23)
[2019-09-09] MEDS ORDERED: NALOXONE HCL 0.4 MG/1 ML VIAL/CARP IV PRN ×2 (08:23→11:13)
[2019-09-09] MEDS ORDERED: fentaNYL citrate 100 MCG/2 ML VIAL IV PRN (08:23)
[2019-09-09] MEDS ORDERED: HYDROmorphone INJ 1 MG/ML SYRINGE IV PRN (08:23)
[2019-09-09] MEDS ORDERED: NEOSTIGMINE METHYLSULFATE 5 MG/5 ML SYR ONE (09:02)
--- NOTE | 2019-09-09 09:06 | Fluoroscopy Report ---
FL hip RT 1V HISTORY: 88 years-old Female RT HIP REVISION right hip total joint arthroplasty COMPARISON: Right femur radiographs 09/06/2019 TECHNIQUE: 3 spot fluoroscopic images of the right hip were obtained utilizing 13.0 seconds fluorosco py time FINDINGS: Status post revision of the right hip total joint arthroplasty with interval placement of cerclage w ires about the proximal diaphysis. There is a few millimeters of persistent cortical displacement not ed medially. Expected postsurgical soft tissue swelling and deep tissue air. IMPRESSION: Fluoroscopic assistance as above. Please see operative report for further details. The above report was generated using voice recognition software. It may contain grammatical, syntax o r spelling errors. Electronically signed by: Shmuel Barlow M.D. 09/09/2019 9:04 AM
--- NOTE | 2019-09-09 09:15 | Operative Report ---
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 Post-Op Diagnosis: [place]serrat-prosthetic fracture of femur following right total hip arthroplasty I identified the patient and participated in the time-out.: Yes Procedure Operation Date: 09/09/19 07:00 Actual Procedures p Right Total Hip Revision(Right) - Zack Hart DO Surgeon Zack Hart DO Director Immunology Jesse Hernandez Estimated Blood Loss 200 Findings Consistent with Post-Op Diagnosis Fluids 1000 cc LR Specimens none Drains none Anesthesia Type General Complications none Disposition Disposition: Recovery Room Indications The patient is an 88-year-old female, [employer]ism, who has recent surgical history for right total hip arthroplasty performed on 08/23/2019. She had an uneventful postoperative course. However the patient reports several days of increasing pain to her right hip. She does not recall a fall or how she hurt her hip however she does report a twisting/falling injury where she caught herself. Due to increasing pain to her right hip and inability to ambulate she was seen in [facility] emergency department. X-rays taken demonstrated a periprosthetic femur fracture of her right total hip arthroplasty. She was admitted for further inpatient observation and treatment. She denies any numbness or tingling on her right lower extremity. Denies hitting head or loss of consciousness. I have indicated the patient for revision right total hip arthroplasty, femoral component, ORIF proximal femur fx. The risks, benefits, alternatives and complications of the procedure were explained to the patient detail which include infection, blood clots, acute blood loss, injury to surrounding nerves, bone, vessels, soft tissue, arthrofibrosis, hip dislocation, leg length discrepancy, failure of the implants, malunion, nonunion, need for additional surgery, loss of limb and loss of life. Alternatives include no surgery however this would result in worsening pain and symptoms and inability to ambulate. The patient wished to proceed with surgical intervention. The patient is a [employer] and has a strict no blood product policy in place. She understands the risk of surgery especially revision surgery will lead to increased risk of bleeding which could subsequently lead to acute postop blood loss anemia which could damage oxygen sensitive organs including brain, heart, kidneys. Patient understands the risk and is willing to proceed with surgical intervention. Description of Procedure Following induction of adequate general anesthesia, the patient was transferred to the OR table and placed in lateral decubitus position with left hip down. The right hip was prepped and draped in the typical sterile fashion and a posterolateral/Yoko-Langenbeck incision was made inline with the previous incision. Subcutaneous tissue was sharply dissected. Electrocautery was utilized for hemostasis. The fascia was incised throughout the length of the wound and retracted with the Charnley retractor. Retained suture from previous surgery was removed. The bursa was taken down and the short external rotators and capsule were identified and tagged with two #1 Vicryl sutures. The short external rotators and capsule were divided from the posterior aspect of the femur using electrocautery. Both external rotators and posterior capsule were swept posterior and protected, along with protecting the sciatic nerve. Meticulous removal of intra-articular scar tissue was performed with bovie. The hip prosthesis was carefully dislocated by flexion and internal rotation in a controlled manner. The femoral head was removed from the trunion. Next, we turned our attention to the proximal femur and stem. I identified the fracture of the medial calcar extending inferiorly into the sub-troches region. The fracture fragment was displaced medially and proximally. Carefully we removed all soft tissue debris and bone near the proximal aspect of the stem. The stem was grossly loose and easily removed without any additional bone loss. Next we turned our attention back to the fracture. The incision was extended distally to gain adequate exposure. The gluteus medius insertion was released and tendon was tagged. Soft tissue around the fracture was removed and the fracture site was cleared of all debris and retained blood clot. A single 1.8 mm Bradley cable was placed distal to the fracture and secured into place with tensioner. The fracture fragment was easily reduced and held in place with 2 additional 1.8 mm Bradley cables. All the cables were held in place with retensioning bit. The retensioning bits were locked and held in place temporarily. Access to the femoral canal was gained with single starter reamer on T-handle. Sequential reaming was performed to 13.5 mm and a depth of 175 mm. Good cortical bone chatter was appreciated. Next we performed sequential broaching of the proximal femur to a size 14 broach which provided good fit and fill of the proximal femur. The broach handle was removed and trial implant left in place. Next, exposure of the acetabulum was obtained. Additional scar tissue removal a nd debridement of the intra-articular soft tissue was performed. Acetabular cup and liner stability was assessed and found to be stable and without signs of loosening or wear. A 32+3 femoral head was placed onto the stem and a trial reduction was carried out. The hip was found to be stable in all degrees of rotation with hip flexion and extension with no impingement and leg lengths were equal. Utilizing intraoperative C-arm fluoroscopy an x-ray was obtained at this time to assess positioning and fracture reduction. The stem surpassed the distal fracture site by at least 2 cortical diameter widths. The hip was dislocated once more, trial components were removed. Access to the proximal femur was once more gained and the final Size 14 Ming one piece stem with standard neck length was impacted into place until well seated with good fit and fill of the proximal femur. The fracture site was reassessed and found to be in good position and the cables were retensioned and locked into place sequentially and excess cables cut. A 32+3 mm femoral head was impacted into place and the hip was reduced. Range of motion was checked once again and found to be stable. Once more utilizing C-arm fluoroscopy stem positioning and fracture reduction was assessed and found to be well aligned well fixed with anatomic position. A Betadine soak was performed at this time for 3 minutes and the wound was copiously irrigated with sterile saline solution with bacitracin. The montserrat- incisional soft tissue was injected utilizing [place] ortho mix which includes a combination of Ropivicaine 0.5% 150mg, Bupivicaine 0.5%/Epinephrine 1:200,000 30ml, Toradol 30mg, Dexamethasone 4mg, Ketamine 10mg, Clonidine 100mcg and NSS 30ml solution. The external rotators, capsule were repaired to the greater trochanter through bone tunnels using #5 FiberWire. Primary repair of the gluteus muscles was performed with #5 FiberWire suture. The fascia was closed using #1 Vicryl, subcutaneous tissue was closed using 2-0 Vicryl, and skin was closed with sabrina. Sterile dressings were applied which included Lilia incisional VAC. A abduction pillow was placed between the legs. The patient tolerated the procedure well and was transported to PACU in stable condition. Due to the complex nature of the procedure, the entire surgery was performed with the operational assistance of Jesse Hernandez PA-C. The pediatric medical assistant, under direct supervision, was involved in the actual performance of all aspects of the surgical procedure including patient positioning, hemostasis, tissue retraction, instrument management and wound closure. I attest to the content of the Intraoperative Record and any orders documented therein. Any exceptions are noted below.
--- NOTE | 2019-09-09 09:18 | Post Operative Brief Note ---
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 I was immediately available: during the entire case. Back up surgeon: was not required during procedure.
--- NOTE | 2019-09-09 10:12 | Anesthesiology Progress Note ---
Date of Service September 09, 2019 Anesthesia Post Procedure Vital Signs Vital Signs: Temp Pulse Pulse Pulse Pulse Resp BP 09/09/19 09:55 71 19 09/09/19 09:45 73 22 09/09/19 09:35 37.6 C H 83 22 09/09/19 06:58 37.6 C H 82 20 152/79 H 09/09/19 06:00 37.3 C 80 16 152/79 H 09/08/19 23:36 36.9 C 77 18 144/76 H 09/08/19 15:15 37.2 C 74 17 123/71 09/08/19 11:58 36.9 C 81 16 BP Pulse Ox 09/09/19 09:55 144/67 H 100 09/09/19 09:45 146/68 H 100 09/09/19 09:35 138/69 100 09/09/19 06:58 95 09/09/19 06:00 96 09/08/19 23:36 94 09/08/19 15:15 93 09/08/19 11:58 99/63 L 94 Pain Intensity Right Hip: Pain Intensity: 6 Transfer of Care Handoff Completed per policy Notes Mental Status: alert / awake / arousable Patient Amnestic to Procedure: Yes Nausea / Vomiting: adequately controlled Pain: adequately controlled Airway Patency, RR, SpO2: stable & adequate BP & HR: stable & adequate Hydration State: stable & adequate Anesthetic Complications: no major complications apparent
--- NOTE | 2019-09-09 10:18 | Orthopedic Progress Note ---
Date of Service September 09, 2019 Assessment & Plan (1) Montserrat-prosthetic fracture of femur following total hip arthroplasty: Status post revision right total hip arthroplasty, ORIF proximal femur -Ancef x24 -DVT prophylaxis SCDs, teds, heparin [id number] for first 24-48 hours, then ASA BID -Partial weightbearing right lower extremity -Posterior hip precautions -PT/OT -Postoperative x-ray pending -A.m. labs, monitor H&H closely, no blood transfusion secondary to taoism believes. Subjective Post Operative Progress Note Patient seen in PACU, comfortable, denies complaints, pain well controlled, no acute issues. Denies complaints of fevers, chills, nausea, vomiting, shortness of breath or chest pain. Review of Systems Review of Systems: All systems reviewed & are unremarkable except as noted in HPI & below Constitutional: as per Subjective / HPI Physical Exam Physical Exam: LLE NVSI +EHL/FHL/TA/GS SILT grossly, +2 DP pulse, compartments soft NT, dressing cdi. Abduction pillow in place. Constitutional: WD/WN, vitals as above Results & Data Vital Signs (Past 12 Hours) Vital Signs Temp Pulse Pulse Pulse Resp BP BP 09/09/19 10:05 71 16 148/67 H 09/09/19 09:55 71 19 144/67 H 09/09/19 09:45 73 22 146/68 H 09/09/19 09:35 37.6 C H 83 22 138/69 09/09/19 06:58 37.6 C H 82 20 152/79 H 09/09/19 06:00 37.3 C 80 16 152/79 H 09/08/19 23:36 36.9 C 77 18 144/76 H Pulse Ox 09/09/19 10:05 99 09/09/19 09:55 100 09/09/19 09:45 100 09/09/19 09:35 100 09/09/19 06:58 95 09/09/19 06:00 96 09/08/19 23:36 94 (1) Montserrat-prosthetic fracture of femur following total hip arthroplasty Encounter type: initial encounter Qualified Code(s): M97.8XXA - Periprosthetic fracture around other internal prosthetic joint, initial encounter; Z96.649 - Presence of unspecified artificial hip joint
--- NOTE | 2019-09-09 10:31 | XRay Report ---
XR hip 1V RT w pelvis CLINICAL HISTORY: IN PACU - A/P PELVIS and LATERAL HIP COMPARISON: 09/06/2019 DISCUSSION: Total right hip replacement appears similar. Fracture of the proximal femoral shaft is now stabilized by 3 circumferential wires. Bony alignment i s unchanged. IMPRESSION: Interval placement of 3 circumferential wires stabilizing the proximal right femoral shaf t. Alignment remains anatomic. The above report was generated using voice recognition software. It may contain grammatical, syntax or spelling errors. Electronically signed by: Chip Feliz M.D. 09/09/2019 10:30 AM
[2019-09-09 10:52] LABS: Hematocrit (blood only) 26.2 % (37-47); Hemoglobin 8.8 g/dL (12.0-16.0); Mean Corpuscular Hemoglobin 33.3 pg (25-34); Mean Corpuscular Volume 99.2 fL (80-100); Mean Platelet Volume 9.3 fL (7.4-10.4); Platelet Count 403 K/uL (130-400); RDW Coefficient of Variation 14.5 % (11.5-14.5); RDW Standard Deviation 52.3 fL (36.4-46.3); Red Blood Count 2.64 M/uL (4.2-5.4)
[2019-09-09 10:53] LABS: Mean Corpuscular Hgb Conc 33.6 g/dL (32-36)
[2019-09-09] MEDS ORDERED: SODIUM CHLORIDE 0.9% 1000ML 1,000 ML IV SCH (11:13)
[2019-09-09] MEDS ORDERED: MAGNESIUM HYDROXIDE SUSP 30 ML UDC PO PRN (11:13)
[2019-09-09] MEDS ORDERED: METOCLOPRAMIDE HCL INJ 5 MG/ML 2 ML VIAL IV PRN (11:13)
[2019-09-09] MEDS ORDERED: BISACODYL 10 MG SUPP PR PRN (11:13)
[2019-09-09 11:21] LABS: BUN Creatinine Ratio 17.7 (10-20); Creatinine Clr Calc Pharmacy 49.1 ml/min; Est GFR (African American) 91.2; Est GFR (Non-African American) 78.6; Potassium 3.7 mmol/L (3.5-5.1)
[2019-09-09] MEDS: carvediloL 3.125 MG TAB PO SCH (11:27)
[2019-09-09] MEDS: PANTOprazole 40 MG TAB PO SCH (12:28)
[2019-09-09] MEDS: LORATADINE 10 MG TAB PO SCH (12:28)
[2019-09-09] MEDS: ACETAMINOPHEN 500 MG TAB PO SCH ×2 (13:35→21:36)
[2019-09-09] MEDS: CEFAZOLIN 1000MG 1,000 MG/7.5 ML SYR IV SCH ×2 (14:35→23:40)
--- NOTE | 2019-09-09 16:49 | Hospitalist Progress Note ---
Date of Service September 09, 2019 Assessment & Plan (1) Angus-prosthetic fracture of femur following total hip arthroplasty: Patient is an 88 yr female with H/O right hip replacement surgery, who comes in with right hip pain and found to have periprosthetic fracture. Right hip periprosthetic fracture H/O Right hip replacement on 08/23/2019 Pelvic X ray:Fracture proximal right femoral shaft adjacent to the right total hip arthroplasty. Femur X ray:Oblique fracture proximal femoral shaft adjacent to the right total hip arthroplasty. S/P right total hip arthroplasty for angus-prosthetic fracture of femur Pain control Continue bowel regimen to prevent constipation Appreciate orthopedics input Activity, Wound care as per Ortho May need rehab placement Monitor for postop anemia H/O chronic diastolic CHF Euvolemic Not on diuretics at home Monitor volume status Continue Coreg GERD continue Prilosec Urinary incontinence on Vesicare Hypertension BP stable Continue Coreg CKD III Cr at baseline Monitor renal function Avoid nephrotoxic agents as able DVT Px; SCDs for now Plan to start on SQ Heparin in AM CODE STATUS Full code Disposition May need rehab placement PT OT prior to discharge Subjective Patient is seen and examined at bedside Patient had right total hip revision today Complains of pain at surgical site Denies any chest pain, shortness of breath, dizziness, nausea, abdominal pain Family at bedside Review of Systems Review of Systems: All systems reviewed & are unremarkable except as noted in HPI & below Physical Exam Physical Exam: Physical Exam: Vitals signs as noted above General Appearance:Moderately built and nourished, no apparent distress Head: normocephalic, Atraumatic Eyes: normal inspection, EOMI Neck: supple, Trachea midline Respiratory/Chest: Normal breath sounds, CTA Cardiovascular: S1, S2, No murmur Abdomen/GI:Soft, Non tender, Bowel sounds present Extremities/Musculoskelatal:normal inspection, Trace edema Neurologic/Psych:AAOX3, grossly no focal neurological deficits, L hip surgical site in dressing, decreased ROM due to pain Skin: normal color, warm Results & Data Vital Signs (Past 12 Hours) Vital Signs Temp Pulse Pulse Pulse Resp BP BP 09/09/19 15:09 36.3 C L 75 12 144/75 H 09/09/19 14:04 36.8 C 71 18 136/71 09/09/19 12:08 36.3 C L 69 18 145/75 H 09/09/19 11:26 36.7 C 68 18 131/76 09/09/19 11:00 70 16 138/78 09/09/19 10:45 69 23 148/68 H 09/09/19 10:35 70 21 150/65 H 09/09/19 10:25 36.8 C 68 23 146/64 H 09/09/19 10:15 71 16 152/72 H 09/09/19 10:05 71 16 148/67 H 09/09/19 09:55 71 19 144/67 H 09/09/19 09:45 73 22 146/68 H 09/09/19 09:35 37.6 C H 83 22 138/69 09/09/19 06:58 37.6 C H 82 20 152/79 H 09/09/19 06:00 37.3 C 80 16 152/79 H Pulse Ox 09/09/19 15:09 96 09/09/19 14:04 98 09/09/19 12:08 94 09/09/19 11:26 92 09/09/19 11:00 92 09/09/19 10:45 97 09/09/19 10:35 97 09/09/19 10:25 98 09/09/19 10:15 98 09/09/19 10:05 99 09/09/19 09:55 100 09/09/19 09:45 100 09/09/19 09:35 100 09/09/19 06:58 95 09/09/19 06:00 96 Laboratory Results Short CBC 09/09/19 Range/Units 10:29 WBC 11.20 H (4.8-10.8) K/uL Hgb 8.8 L (12.0-16.0) g/dL Hct 26.2 L (37-47) % Plt Count 403 H (130-400) K/uL BMP 09/09/19 10:29 Sodium 137 Potassium 3.7 Chloride 107 Carbon Dioxide 23 BUN 12 Creatinine 0.68 Glucose 115 H Calcium 8.0 L (1) 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
[2019-09-09] MEDS: SENNA 8.6 MG TAB PO SCH (19:55)
[2019-09-09] MEDS: DOCUSATE SODIUM 100 MG CAP PO SCH (19:56)
[2019-09-09] MEDS: LATANOPROST 0.005% OP SOLN 2.5 ML BTL OPB SCH (19:57)
[2019-09-10] MEDS: SODIUM CHLORIDE 0.9% 1000ML 1,000 ML IV SCH (02:00)
[2019-09-10] MEDS: TRAMADOL HCL 50 MG TABLET PO PRN ×2 (03:47→16:20)
[2019-09-10] MEDS: ACETAMINOPHEN 500 MG TAB PO SCH ×3 (06:28→21:56)
[2019-09-10] MEDS: HEPARIN SOD 5,000 UNIT/0.5 ML VIAL SQ SCH ×3 (06:30→21:56)
[2019-09-10 06:31] LABS: Hematocrit (blood only) 22.2 % (37-47); Hemoglobin 7.4 g/dL (12.0-16.0); Immature Granulocytes # (auto) 0.03 K/uL (0.00-0.02); Immature Granulocytes % (auto) 0.3 %; Lymphocytes # (auto) 0.71 K/uL (1.2-3.4); Lymphocytes % (auto) 7.2 %; Mean Corpuscular Hemoglobin 32.7 pg (25-34); Mean Corpuscular Hgb Conc 33.3 g/dL (32-36); Mean Corpuscular Volume 98.2 fL (80-100); Mean Platelet Volume 9.5 fL (7.4-10.4); Monocytes # (auto) 1.27 K/uL (0.11-0.59); Neutrophils # (auto) 7.79 K/uL (1.4-6.5); Neutrophils % (auto) 79.5 %; Platelet Count 357 K/uL (130-400); RDW Coefficient of Variation 14.4 % (11.5-14.5); RDW Standard Deviation 50.8 fL (36.4-46.3); Red Blood Count 2.26 M/uL (4.2-5.4)
[2019-09-10 06:56] LABS: Calcium 7.8 mg/dl (8.5-10.1); Creatinine Clr Calc Pharmacy 47.7 ml/min; Est GFR (African American) 90.3; Est GFR (Non-African American) 77.9
--- NOTE | 2019-09-10 07:43 | Orthopedic Progress Note ---
Date of Service September 10, 2019 Assessment & Plan (1) Montserrat-prosthetic fracture of femur following total hip arthroplasty: POD#1 Status post revision right total hip arthroplasty, ORIF proximal femur -Ancef x24 -DVT prophylaxis SCDs, teds, heparin [id number] for first 24-48 hours, then ASA BID -Partial weightbearing right lower extremity -Posterior hip precautions -PT/OT -A.m. labs, monitor H&H closely-hemoglobin 7.4 this am down from 8.8 yesterday and 9.4 preop. Acute blood losss anemia secondary to surgical loss vs dilutional effect, no blood transfusion secondary to faith believes. Subjective Patient is POD#1 revision [place]. She is doing okay this morning, mild to moderate amount of pain. No complaints of chest pain, sob, headaches, dizziness, n/v/d. Review of Systems Review of Systems: All systems reviewed & are unremarkable except as noted in HPI & below Physical Exam Physical Exam: Prevena to right hip intact and functioning, c/d/i. Toes mobile, no calf tenderness, Distally n/v status and sensation intact. Constitutional: well developed and well nourished; no acute distress Results & Data Vital Signs (Past 12 Hours) Vital Signs Temp Pulse Resp BP Pulse Ox 09/10/19 07:18 36.6 C 69 16 108/64 91 09/10/19 03:42 36.4 C L 71 16 144/81 H 97 09/09/19 23:40 36.3 C L 67 16 124/75 94 09/09/19 20:04 36.4 C L 75 12 102/63 94 (1) Montserrat-prosthetic fracture of femur following total hip arthroplasty Encounter type: initial encounter Qualified Code(s): M97.8XXA - Periprosthetic fracture around other internal prosthetic joint, initial encounter; Z96.649 - Presence of unspecified artificial hip joint
[2019-09-10] MEDS: PANTOprazole 40 MG TAB PO SCH (08:31)
[2019-09-10] MEDS: MULTIVITAMIN TAB PO SCH (08:31)
[2019-09-10] MEDS: LORATADINE 10 MG TAB PO SCH (08:31)
[2019-09-10] MEDS: DOCUSATE SODIUM 100 MG CAP PO SCH ×2 (08:31→20:21)
--- NOTE | 2019-09-10 13:03 | Anesthesiology Progress Note ---
Date of Service September 10, 2019 Anesthesia Post Procedure Vital Signs Vital Signs: Temp Pulse Resp BP Pulse Ox 09/10/19 07:18 36.6 C 69 16 108/64 91 09/10/19 03:42 36.4 C L 71 16 144/81 H 97 09/09/19 23:40 36.3 C L 67 16 124/75 94 09/09/19 20:04 36.4 C L 75 12 102/63 94 09/09/19 15:09 36.3 C L 75 12 144/75 H 96 09/09/19 14:04 36.8 C 71 18 136/71 98 Pain Intensity Right Hip: Pain Intensity: 8 Notes Mental Status: alert / awake / arousable and participated in evaluation Patient Amnestic to Procedure: Yes Nausea / Vomiting: adequately controlled Pain: adequately controlled Airway Patency, RR, SpO2: stable & adequate BP & HR: stable & adequate Hydration State: stable & adequate Anesthetic Complications: no major complications apparent and Pt Satisfied with anesthetic care
--- NOTE | 2019-09-10 17:00 | Hospitalist Progress Note ---
Date of Service September 10, 2019 Assessment & Plan (1) Angus-prosthetic fracture of femur following total hip arthroplasty: Patient is an 88 yr female with H/O right hip replacement surgery, who comes in with right hip pain and found to have periprosthetic fracture. Right hip periprosthetic fracture H/O Right hip replacement on 08/23/2019 Pelvic X ray:Fracture proximal right femoral shaft adjacent to the right total hip arthroplasty. Femur X ray:Oblique fracture proximal femoral shaft adjacent to the right total hip arthroplasty. S/P right total hip arthroplasty for angus-prosthetic fracture of femur POD #1 Acute blood loss/Post Op Anemia Hb:7.4 today Patient refuses PRBCs transfusion due to orthodox purposes Pain control Continue bowel regimen to prevent constipation Appreciate orthopedics input Activity, Wound care as per Ortho Continue PT/OT Needs rehab placement H/O chronic diastolic CHF Euvolemic Not on diuretics at home Monitor volume status Continue Coreg GERD continue Prilosec Urinary incontinence on Vesicare Constipation Continue bowel regimen Hypertension BP stable Continue Coreg CKD III Cr at baseline Monitor renal function Avoid nephrotoxic agents as able DVT Px: SQ Heparin CODE STATUS Full code Disposition PT OT prior to discharge Subjective Patient is seen and examined at bedside Doing well today Leg pain is controlled Reports constipation Offers no other complaints Had PT earlier today Denies any chest pain, SOB, dizziness, nausea, abdominal pain Review of Systems Review of Systems: All systems reviewed & are unremarkable except as noted in HPI & below Physical Exam Physical Exam: Physical Exam: Vitals signs as noted above General Appearance:Moderately built and nourished, no apparent distress Head: normocephalic, Atraumatic Eyes: normal inspection, EOMI Neck: supple, Trachea midline Respiratory/Chest: Normal breath sounds, CTA Cardiovascular: S1, S2, No murmur Abdomen/GI:Soft, Non tender, Bowel sounds present Extremities/Musculoskelatal:normal inspection, Trace edema Neurologic/Psych:AAOX3, grossly no focal neurological deficits, L hip surgical site in dressing, decreased ROM due to pain Skin: normal color, warm Results & Data Vital Signs (Past 12 Hours) Vital Signs Temp Pulse Resp BP Pulse Ox Pulse Ox 09/10/19 15:04 36.8 C 77 16 115/65 97 09/10/19 13:37 98 09/10/19 13:23 98 09/10/19 07:18 36.6 C 69 16 108/64 91 Laboratory Results Short CBC 09/10/19 Range/Units 06:18 WBC 9.80 (4.8-10.8) K/uL Hgb 7.4 L (12.0-16.0) g/dL Hct 22.2 L (37-47) % Plt Count 357 (130-400) K/uL BMP 09/10/19 06:18 Sodium 138 Potassium 4.0 Chloride 109 H Carbon Dioxide 24 BUN 20 H D Creatinine 0.70 Glucose 108 H Calcium 7.8 L (1) 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
[2019-09-10] MEDS: LATANOPROST 0.005% OP SOLN 2.5 ML BTL OPB SCH (20:22)
[2019-09-10] MEDS: SENNA 8.6 MG TAB PO SCH (20:22)
[2019-09-11] MEDS: ACETAMINOPHEN 500 MG TAB PO SCH ×3 (05:19→21:39)
[2019-09-11] MEDS: HEPARIN SOD 5,000 UNIT/0.5 ML VIAL SQ SCH ×3 (05:21→21:38)
[2019-09-11 05:50] LABS: Eosinophils # (auto) 0.02 K/uL (0-0.5); Eosinophils % (auto) 0.2 %; Hematocrit (blood only) 21.7 % (37-47); Hemoglobin 7.4 g/dL (12.0-16.0); Immature Granulocytes # (auto) 0.02 K/uL (0.00-0.02); Immature Granulocytes % (auto) 0.2 %; Lymphocytes # (auto) 1.38 K/uL (1.2-3.4); Lymphocytes % (auto) 16.8 %; Mean Corpuscular Hemoglobin 33.6 pg (25-34); Mean Corpuscular Hgb Conc 34.1 g/dL (32-36); Mean Corpuscular Volume 98.6 fL (80-100); Mean Platelet Volume 9.7 fL (7.4-10.4); Monocytes # (auto) 0.95 K/uL (0.11-0.59); Monocytes % (auto) 11.5 %; Neutrophils # (auto) 5.86 K/uL (1.4-6.5); Neutrophils % (auto) 71.3 %; Platelet Count 428 K/uL (130-400); RDW Coefficient of Variation 14.5 % (11.5-14.5); RDW Standard Deviation 51.2 fL (36.4-46.3); White Blood Count 8.23 K/uL (4.8-10.8)
[2019-09-11 06:17] LABS: BUN Creatinine Ratio 25.9 (10-20); Calcium 8.2 mg/dl (8.5-10.1); Est GFR (African American) 93.5; Est GFR (Non-African American) 80.6; Potassium 3.9 mmol/L (3.5-5.1); RBC Morphology Unremarkable
--- NOTE | 2019-09-11 07:45 | Orthopedic Progress Note ---
Date of Service September 11, 2019 Assessment & Plan (1) [place]-prosthetic fracture of femur following total hip arthroplasty: POD#2 Status post revision right total hip arthroplasty, ORIF proximal femur -Ancef x24 -DVT prophylaxis SCDs, teds, heparin [id number] for first 24-48 hours, then ASA BID -Partial weightbearing right lower extremity -Posterior hip precautions -PT/OT -A.m. labs, monitor H&H closely-hemoglobin 7.4 this am, 7.4 yesterday AM. Acute blood loss anemia secondary to surgical loss vs dilutional effect, no blood transfusion secondary to judaism believes. Will delay starting ASA BID until hgb stabilizes. Subjective Patient is POD#2 revision [place]. She is doing okay this morning, mild to moderate amount of pain. No complaints of chest pain, sob, headaches, dizziness, n/v/d. Review of Systems Review of Systems: All systems reviewed & are unremarkable except as noted in HPI & below Physical Exam 2 Physical Exam: Patient resting in bed comfortably. Prevena in place and suctioning. Distally toes are mobile, no calf tenderness. N/v status and sensation intact. Constitutional: well developed and well nourished; no acute distress Results & Data Vital Signs (Past 12 Hours) Vital Signs Temp Pulse Resp BP Pulse Ox 09/11/19 07:07 36.4 C L 74 16 139/81 98 09/10/19 22:53 36.8 C 63 16 137/66 94 (1) [place]-prosthetic fracture of femur following total hip arthroplasty Encounter type: initial encounter Qualified Code(s): M97.8XXA - Periprosthetic fracture around other internal prosthetic joint, initial encounter; Z96.649 - Presence of unspecified artificial hip joint
[2019-09-11] MEDS: DOCUSATE SODIUM 100 MG CAP PO SCH ×2 (09:12→20:36)
[2019-09-11] MEDS: LORATADINE 10 MG TAB PO SCH (09:13)
[2019-09-11] MEDS: MULTIVITAMIN TAB PO SCH (09:13)
[2019-09-11] MEDS: PANTOprazole 40 MG TAB PO SCH (09:13)
[2019-09-11] MEDS: [UNRECOGNIZED DRUG - REMARK] PO SCH (09:14)
--- NOTE | 2019-09-11 15:06 | Hospitalist Progress Note ---
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 Right hip periprosthetic fracture H/O Right hip replacement on 08/23/2019 Pelvic X ray:Fracture proximal right femoral shaft adjacent to the right total hip arthroplasty. Femur X ray:Oblique fracture proximal femoral shaft adjacent to the right total hip arthroplasty. S/P right total hip arthroplasty for angus-prosthetic fracture of femur POD #2 Acute blood loss/Post Op Anemia Hb:7.4 today Patient refuses PRBCs transfusion due to episcopal purposes Pain control Continue bowel regimen to prevent constipation Appreciate orthopedics input Activity, Wound care as per Ortho Continue PT/OT Needs rehab placement Continue current meds H/O chronic diastolic CHF Euvolemic Not on diuretics at home Monitor volume status Continue Coreg GERD continue Prilosec Urinary incontinence on Vesicare Constipation Continue bowel regimen Hypertension Resume Coreg CKD III Cr at baseline Monitor renal function Avoid nephrotoxic agents as able DVT Px: SQ Heparin CODE STATUS Full code Disposition PT OT: Recommends SNF Subjective Patient is seen and examined at bedside Did well with PT today Hb stable Constipation resolved Leg pain is controlled Denies any chest pain, SOB, dizziness, nausea, abdominal pain Review of Systems Review of Systems: All systems reviewed & are unremarkable except as noted in HPI & below Physical Exam Physical Exam: Physical Exam: Vitals signs as noted above General Appearance:Moderately built and nourished, no apparent distress Head: normocephalic, Atraumatic Eyes: normal inspection, EOMI Neck: supple, Trachea midline Respiratory/Chest: Normal breath sounds, CTA Cardiovascular: S1, S2, No murmur Abdomen/GI:Soft, Non tender, Bowel sounds present Extremities/Musculoskelatal:normal inspection, Trace edema Neurologic/Psych:AAOX3, grossly no focal neurological deficits, L hip surgical site in dressing Skin: normal color, warm Results & Data Vital Signs (Past 12 Hours) Vital Signs Temp Pulse Resp BP Pulse Ox 09/11/19 07:07 36.4 C L 74 16 139/81 98 Laboratory Results Short CBC 09/11/19 Range/Units 05:26 WBC 8.23 (4.8-10.8) K/uL Hgb 7.4 L (12.0-16.0) g/dL Hct 21.7 L (37-47) % Plt Count 428 H (130-400) K/uL BMP 09/11/19 05:26 Sodium 140 Potassium 3.9 Chloride 108 H Carbon Dioxide 28 BUN 16 Creatinine 0.63 Glucose 84 Calcium 8.2 L (1) 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
[2019-09-11] MEDS: TRAMADOL HCL 50 MG TABLET PO PRN ×2 (19:32→20:34)
[2019-09-11] MEDS: LATANOPROST 0.005% OP SOLN 2.5 ML BTL OPB SCH (20:37)
[2019-09-11] MEDS: SENNA 8.6 MG TAB PO SCH (20:42)
[2019-09-11] MEDS: carvediloL 3.125 MG TAB PO SCH (20:47)
[2019-09-12 05:47] LABS: Hematocrit (blood only) 21.3 % (37-47)
[2019-09-12] MEDS: ACETAMINOPHEN 500 MG TAB PO SCH ×3 (05:56→20:35)
[2019-09-12] MEDS: HEPARIN SOD 5,000 UNIT/0.5 ML VIAL SQ SCH (05:56)
[2019-09-12 06:21] LABS: BUN Creatinine Ratio 25.3 (10-20); Creatinine Clr Calc Pharmacy 51.4 ml/min; Est GFR (African American) 92.5; Est GFR (Non-African American) 79.8; Potassium 3.9 mmol/L (3.5-5.1)
--- NOTE | 2019-09-12 06:56 | Orthopedic Progress Note ---
Date of Service September 12, 2019 Assessment & Plan (1) [place]-prosthetic fracture of femur following total hip arthroplasty: POD#3 Status post revision right total hip arthroplasty, ORIF proximal femur -Ancef x24 -DVT prophylaxis SCDs, teds, 81mg ASA BID -Partial weightbearing right lower extremity -Posterior hip precautions -PT/OT -A.m. labs, monitor H&H closely-hemoglobin 7.0 this am, 7.4 yesterday AM. Acute blood loss anemia secondary to surgical loss vs dilutional effect, no blood tr ansfusion secondary to yazdanism believes. Subjective Post Operative Progress Note Patient seen laying in bed, comfortable, denies complaints, pain well controlled, no acute issues. Denies any chest pain, SOB, dizziness, nausea, abdominal pain Review of Systems Review of Systems: All systems reviewed & are unremarkable except as noted in HPI & below Constitutional: as per Subjective / HPI Physical Exam Physical Exam: RLE NVSI +EHL/FHL/TA/GS SILT grossly, +2 DP pulse, compartments soft NT, dressing cdi. Constitutional: WD/WN, vitals as above Results & Data Vital Signs (Past 12 Hours) Vital Signs Temp Pulse Resp BP Pulse Ox 09/11/19 22:50 36.9 C 83 18 100/63 95 09/11/19 20:46 36.8 C 89 18 117/72 98 (1) [place]-prosthetic fracture of femur following total hip arthroplasty Encounter type: initial encounter Qualified Code(s): M97.8XXA - Periprosthetic fracture around other internal prosthetic joint, initial encounter; Z96.649 - Presence of unspecified artificial hip joint
[2019-09-12] MEDS: [UNRECOGNIZED DRUG - REMARK] PO SCH (08:47)
[2019-09-12] MEDS: carvediloL 3.125 MG TAB PO SCH ×2 (08:48→20:36)
[2019-09-12] MEDS: MULTIVITAMIN TAB PO SCH (08:48)
[2019-09-12] MEDS: LORATADINE 10 MG TAB PO SCH (08:48)
[2019-09-12] MEDS: PANTOprazole 40 MG TAB PO SCH (08:49)
[2019-09-12] MEDS: DOCUSATE SODIUM 100 MG CAP PO SCH ×2 (08:49→20:35)
[2019-09-12] MEDS: ASPIRIN 81 MG ECTAB PO SCH ×2 (08:52→20:36)
[2019-09-12] MEDS: TRAMADOL HCL 50 MG TABLET PO PRN (08:57)
[2019-09-12 14:46] LABS: Ferritin 609.7 ng/ml (8-388)
--- NOTE | 2019-09-12 15:55 | Hospitalist Progress Note ---
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 Right hip periprosthetic fracture H/O Right hip replacement on 08/23/2019 Pelvic X ray:Fracture proximal right femoral shaft adjacent to the right total hip arthroplasty. Femur X ray:Oblique fracture proximal femoral shaft adjacent to the right total hip arthroplasty. S/P right total hip arthroplasty for angus-prosthetic fracture of femur POD #2 Hb:7.0 Patient refuses PRBCs transfusion due to baptist purposes Pain control Continue bowel regimen to prevent constipation Appreciate orthopedics input Activity, Wound care as per Ortho Continue PT/OT Needs rehab placement On aspirin 81 mg twice daily for prophylaxis Acute blood loss/Post Op Anemia Anemia of chronic kidney disease CKD III H/O allergy to oral iron supplement Follows with Dr. Mojica as outpatient Hb: 7.0 today Folate levels pending Serum iron 18, transferrin 130, ferritin 609 Vitamin B12: 579 No blood transfusion secondary to baptist purposes Given history of CKD, consider EPO administration Consulted Nephrology to assist with EPO No acute bleeding issues H/O chronic diastolic CHF Euvolemic Not on diuretics at home Monitor volume status Continue Coreg GERD continue Prilosec Urinary incontinence on Vesicare Constipation Continue bowel regimen Hypertension Resume Coreg with holding parameters CKD III Cr at baseline Monitor renal function Avoid nephrotoxic agents as able DVT Px: on ASA Bid Re: Anemia, Post Op CODE STATUS Full code Disposition PT OT: Recommends SNF Subjective Patient is seen and examined at bedside Had transient episode of dizziness after bowel movement Feels tired after having physical therapy this morning Hemoglobin 7.0 No active bleeding issues Leg pain is controlled Denies any chest pain, SOB, dizziness, nausea, abdominal pain Discussed with family in detail today Review of Systems Review of Systems: All systems reviewed & are unremarkable except as noted in HPI & below Physical Exam Physical Exam: Physical Exam: Vitals signs as noted above General Appearance:Moderately built and nourished, no apparent distress Head: normocephalic, Atraumatic Eyes: normal inspection, EOMI Neck: supple, Trachea midline Respiratory/Chest: Normal breath sounds, CTA Cardiovascular: S1, S2, No murmur Abdomen/GI:Soft, Non tender, Bowel sounds present Extremities/Musculoskelatal:normal inspection, Trace edema Neurologic/Psych:AAOX3, grossly no focal neurological deficits, L hip surgical site in dressing Skin: normal color, warm Results & Data Vital Signs (Past 12 Hours) Vital Signs Temp Pulse Pulse Resp BP BP Pulse Ox 09/12/19 14:57 36.7 C 71 16 106/49 L 98 09/12/19 11:41 36.8 C 67 68 24 140/68 95 09/12/19 10:15 110/74 09/12/19 08:00 36.8 C 72 66 22 146/78 H 97 Laboratory Results Short CBC 09/12/19 Range/Units 05:33 Hgb 7.0 L (12.0-16.0) g/dL Hct 21.3 L (37-47) % BMP 09/12/19 05:33 Sodium 141 Potassium 3.9 Chloride 109 H Carbon Dioxide 27 BUN 16 Creatinine 0.65 Glucose 89 Calcium 8.0 L (1) 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
[2019-09-12] MEDS: SENNA 8.6 MG TAB PO SCH (20:35)
[2019-09-12] MEDS: LATANOPROST 0.005% OP SOLN 2.5 ML BTL OPB SCH (20:36)
[2019-09-13] MEDS: ACETAMINOPHEN 500 MG TAB PO SCH ×3 (05:34→20:54)
[2019-09-13 05:56] LABS: Hematocrit (blood only) 19.3 % (37-47); Hemoglobin 6.3 g/dL (12.0-16.0)
--- NOTE | 2019-09-13 07:33 | Nephrology Consultation ---
Date of Consultation September 13, 2019 Assessment & Plan (1) Acute anemia: hgb trending down rapidly > focus on stabilizing hgb as cause is worked up -f/u pending iron studies- -epo 60416 units SQ now -check hgb at least daily -defer work up to further hemolysis>liver panel, peripheral smear, Present on Admission?: Yes History of Present Illness Reason for Consultation: acute blood loss anemia Requesting Physician: Dr Cerrato Attending Physician: Raúl Cerrato MD History of Present Illness 88 y/o F whom I'm asked to see for anemia mgt after her hgb dropped in wake of surgery cannot for quaker reasons have pRBC. PMH includes CKD3, DHF, HTN, OA, urinary incontinence s/p cystocele repair, HL. Also on chart is report of swelling around eyes in reaction to oral iron; similar reaction reported to other unrelated meds as well. no mention of airway issues w/ any of these meds. on 09/09 she had a revision of R total hip done a few weeks back to manage a periprosthetic fracture. EBL was 200 in surgery. her hgb in early august was 12.1; her first hip surgery was 08/23; post op hgb was 9.7; on 09/08 was 9.9; preoperatively was 8.8; then 7.4 and yesterday 7.0. This am she is at 6.3. Transferrin sat is pending. Despite dx of CKD 3, her creatinine has been wnl. Pt w/o sx of anemia except that she notes mild lightheadedness when getting up to void; denies sob, cp, focal numbness/weakness, unexpected fatigue. Allergies Allergy/AdvReac Type Severity Reaction Status Date / Time bee venom protein (honey bee) Allergy Intermediate SWELLING Verified 09/06/19 23:48 estrogens, conjugated Allergy Intermediate SWELLING Verified 09/06/19 23:48 OF EYES ferrous sulfate Allergy Intermediate SWELLING Verified 09/06/19 23:48 OF EYES oxycodone Allergy Intermediate Hives, Verified 09/06/19 23:48 swelling around eyes. Sulfa (Sulfonamide Allergy Intermediate HIVES, Verified 09/06/19 23:48 Antibiotics) SWELLING OF EYES adhesive AdvReac Intermediate SKIN Verified 09/06/19 23:48 IRRITATION-REDNESS, ITCHING MADSEN Allergy Intermediate Hives Uncoded 09/06/19 23:48 Home Medications Home Medications Medication Instructions Recorded Confirmed Type [place]-3 (with dpa) 1 cap PO QAM 06/28/19 09/06/19 History PreserVision AREDS-2 1 tab PO BID 06/28/19 09/06/19 History albuterol sulfate [ProAir HFA] 1 puff INHALATION Q6H PRN 06/28/19 09/06/19 History calcium carbonate-vitamin D3 1 cap PO QAM 06/28/19 09/06/19 History [Calcium 600 with Vitamin D3] carvedilol 3.125 mg PO BIDM 06/28/19 09/06/19 History diclofenac sodium 2 g TOPICAL QID PRN 06/28/19 09/06/19 History latanoprost 1 drp OPB PM 06/28/19 09/06/19 History loratadine 10 mg PO DAILY 06/28/19 09/06/19 History omeprazole 20 mg PO QAM 06/28/19 09/06/19 History phenylephrine HCl 10 mg PO Q6H PRN 06/28/19 09/06/19 History solifenacin [Vesicare] 5 mg PO QAM 06/28/19 09/06/19 History aspirin [Ecotrin Low Strength] 81 mg PO BID 28 Days #56 tab 08/24/19 09/06/19 Rx sennosides [Senokot] 17.2 mg PO HS PRN #28 tab 08/24/19 09/06/19 Rx acetaminophen [Tylenol Extra 500 - 1,000 mg PO Q8 PRN 09/06/19 09/06/19 History Strength] calcium-vit B complx-FA [Complex 1 tab PO QAM 09/06/19 09/06/19 History B-50] diphenhydramine HCl [Benadryl] 25 mg PO DIRECTED PRN 09/06/19 09/06/19 History meclizine 25 mg PO DAILY PRN 09/06/19 09/06/19 History multivitamin 1 tab PO BID 09/06/19 09/06/19 History tramadol 50 mg PO Q6H PRN 09/06/19 09/06/19 History Patient History Medical History GERD (gastroesophageal reflux disease) controlled Glaucoma Hearing deficit History of bronchitis inhaler PRN Hx of deep venous thrombosis LLE DVT post-op hysterectomy (1977) Hypertension Obesity Osteoarthritis Refusal of blood transfusions as patient is Synagogue Urinary frequency + urgency Surgical History History of colonoscopy History of cystocele rectocele, and vaginal surgery History of esophagogastroduodenoscopy (EGD) History of total left knee replacement History of total right hip replacement History of total right knee replacement Hx of total hysterectomy Family History Other FHx: cancer Social History Preferred Language: Bhutanese Communication Ability: Effective Gear Setter Required: No Beliefs That Will Affect Care: Yazidi Yazidi Beliefs: jehovah witness-no blood Current Living Situation: Alone Other Information That Helps Us Care for You: No Feels Safe at Home: Yes Safety Concerns: Feels Safe At This Time Smoking Status: Never smoker Second Hand Exposure: No ; Hx Alcohol Use: No Hx Substance Use: No Review of Systems Review of Systems: All systems reviewed & are unremarkable except as noted in HPI & below Constitutional: no fatigue and no weakness Respiratory: no dyspnea Cardiovascular: no chest pain Gastrointestinal: no abdominal pain Physical Exam Constitutional: well developed and well nourished on RA lying in bed Eyes: EOM intact bilaterally ENMT: Ears: no external ear abnormality Nose: no external nose abnormality Mouth: + dry oral mucous membranes Neck: no nuchal rigidity Respiratory: normal respiratory effort Auscultation: + diminished lung sounds Cardiovascular: RRR, no murmur, no edema Gastrointestinal (Abdomen): Inspection/Auscultation: normal bowel sounds Percussion/Palpation: abdomen soft; abdomen nontender Musculoskeletal: Extremities: strength 5/5 throughout Skin: no rashes, warm and dry Neurologic: ordoñez, fluent speech, no tremor Genitourinary: no hinds Results & Data Vital Signs (Past 12 Hours) Vital Signs Temp Pulse Resp BP Pulse Ox 09/12/19 23:15 36.9 C 86 16 129/71 96 Laboratory Results 09/13/19 05:07 09/12/19 05:33
[2019-09-13 08:08] LABS: Iron 22 mcg/dl (35-150); Transferrin 127 mg/dl (200-360); Transferrin Percent Saturation 12 % (15-50)
[2019-09-13] MEDS ORDERED: EPOETIN ALFA 20,000 UNITS/ML VIAL IV ONE (08:15)
[2019-09-13] MEDS ORDERED: IRON SUCROSE 100 MG in 0.9 % SODIUM CHLORIDE 100 ML IV ONE (08:15)
[2019-09-13] MEDS: ASPIRIN 81 MG ECTAB PO SCH ×2 (08:31→20:53)
[2019-09-13] MEDS: carvediloL 3.125 MG TAB PO SCH ×2 (08:31→20:53)
[2019-09-13] MEDS: LORATADINE 10 MG TAB PO SCH (08:32)
[2019-09-13] MEDS: [UNRECOGNIZED DRUG - REMARK] PO SCH (08:33)
[2019-09-13] MEDS: PANTOprazole 40 MG TAB PO SCH (08:33)
[2019-09-13] MEDS: MULTIVITAMIN TAB PO SCH (08:33)
[2019-09-13] MEDS: DOCUSATE SODIUM 100 MG CAP PO SCH ×2 (08:33→20:53)
[2019-09-13] MEDS: TRAMADOL HCL 50 MG TABLET PO PRN (15:32)
--- NOTE | 2019-09-13 17:19 | Hospitalist Progress Note ---
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 Right hip periprosthetic fracture H/O Right hip replacement on 08/23/2019 Pelvic X ray:Fracture proximal right femoral shaft adjacent to the right total hip arthroplasty. Femur X ray:Oblique fracture proximal femoral shaft adjacent to the right total hip arthroplasty. S/P right total hip arthroplasty for angus-prosthetic fracture of femur POD #2 Hb: 6.3 today Patient refuses PRBCs transfusion due to judaism purposes Pain control Continue bowel regimen to prevent constipation Appreciate orthopedics input Activity, Wound care as per Ortho Continue PT/OT Needs rehab placement On aspirin 81 mg twice daily for prophylaxis May need to hold aspirin if Hb continues to drop Acute blood loss/Post Op Anemia Anemia of chronic kidney disease CKD III H/O allergy to oral iron supplement Follows with Dr. Mojica as outpatient Hb: 6.30 today Folate, Vit B 12 levels: Normal Serum iron 18, transferrin 130, ferritin 609 No blood transfusion secondary to judaism purposes Appreciate Nephrology input Check FOBT Received IV iron, EPO today Monitor CBC Minimize blood draws H/O chronic diastolic CHF Euvolemic Not on diuretics at home Monitor volume status Continue Coreg GERD continue Prilosec Urinary incontinence on Vesicare Constipation Continue bowel regimen Hypertension Resume dCoreg with holding parameters CKD III Cr at baseline Monitor renal function Avoid nephrotoxic agents as able DVT Px: on ASA Bid Re: Anemia, Post Op CODE STATUS Full code Disposition PT OT: Recommends SNF Subjective Patient is seen and examined at bedside States feeling tired Denies any SOB, dizziness, chest pain Hb dropped to 6.3 today No obvious bleeding issues Leg pain is controlled Review of Systems Review of Systems: All systems reviewed & are unremarkable except as noted in HPI & below Physical Exam Physical Exam: Physical Exam: Vitals signs as noted above General Appearance:Moderately built and nourished, no apparent distress Head: normocephalic, Atraumatic Eyes: normal inspection, EOMI Neck: supple, Trachea midline Respiratory/Chest: Normal breath sounds, CTA Cardiovascular: S1, S2, No murmur Abdomen/GI:Soft, Non tender, Bowel sounds present Extremities/Musculoskelatal:normal inspection, Trace edema Neurologic/Psych:AAOX3, grossly no focal neurological deficits, L hip surgical site in dressing Skin: normal color, warm Results & Data Vital Signs (Past 12 Hours) Vital Signs Temp Pulse Resp BP Pulse Ox 09/13/19 15:19 36.8 C 82 16 104/65 96 Laboratory Results Short CBC 09/13/19 Range/Units 05:07 Hgb 6.3 L* (12.0-16.0) g/dL Hct 19.3 L* (37-47) % (1) 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
[2019-09-13] MEDS: LATANOPROST 0.005% OP SOLN 2.5 ML BTL OPB SCH (20:53)
[2019-09-13] MEDS: SENNA 8.6 MG TAB PO SCH ×2 (20:53→21:14)
[2019-09-14] MEDS: ACETAMINOPHEN 500 MG TAB PO SCH ×3 (05:32→21:26)
[2019-09-14 05:38] LABS: Hematocrit (blood only) 18.7 % (37-47); Hemoglobin 6.2 g/dL (12.0-16.0); Mean Corpuscular Hemoglobin 33.2 pg (25-34); Mean Corpuscular Hgb Conc 33.2 g/dL (32-36); Mean Platelet Volume 9.5 fL (7.4-10.4); Platelet Count 423 K/uL (130-400); RDW Coefficient of Variation 14.8 % (11.5-14.5); Red Blood Count 1.87 M/uL (4.2-5.4); White Blood Count 6.88 K/uL (4.8-10.8)
[2019-09-14 06:03] LABS: Basophils # (auto) 0.08 K/uL (0-0.2); Basophils % (auto) 1.2 %; Eosinophils # (auto) 0.19 K/uL (0-0.5); Eosinophils % (auto) 2.8 %; Immature Granulocytes # (auto) 0.39 K/uL (0.00-0.02); Immature Granulocytes % (auto) 5.7 %; Lymphocytes # (auto) 1.71 K/uL (1.2-3.4); Lymphocytes % (auto) 24.9 %; Monocytes # (auto) 1.19 K/uL (0.11-0.59); Monocytes % (auto) 17.3 %; Neutrophils # (auto) 3.32 K/uL (1.4-6.5); Neutrophils % (auto) 48.1 %; Polychromasia 1+
[2019-09-14] MEDS: ASPIRIN 81 MG ECTAB PO SCH ×2 (07:35→21:26)
[2019-09-14] MEDS: [UNRECOGNIZED DRUG - REMARK] PO SCH (07:35)
[2019-09-14] MEDS: PANTOprazole 40 MG TAB PO SCH (07:36)
[2019-09-14] MEDS: carvediloL 3.125 MG TAB PO SCH ×2 (07:36→21:26)
[2019-09-14] MEDS: DOCUSATE SODIUM 100 MG CAP PO SCH ×2 (07:36→21:25)
[2019-09-14] MEDS: LORATADINE 10 MG TAB PO SCH (07:36)
[2019-09-14] MEDS: MULTIVITAMIN TAB PO SCH (07:36)
--- NOTE | 2019-09-14 09:08 | Nephrology Progress Note ---
Date of Service September 14, 2019 Assessment & Plan (1) Acute anemia: hgb trending down rapidly until 09/13; basically stable today > focus on stabilizing hgb as cause is worked up; t stn -epo 69337 units SQ x 1 on 09/13 -tolerated 100 mg venofer on 09/13; will give another 200 mg today -check hgb at least daily -defer work up for hemolysis or other anemia eval to primary service as indic ated>liver panel, peripheral smear; FOBT neg x 1 Subjective denies sob, cp, focal numbness/weakness, generalized fatigue or weakness; no events ON; tolerated venofer test dose and epo yesterday Review of Systems Review of Systems: All systems reviewed & are unremarkable except as noted in HPI & below Physical Exam Constitutional: well developed and well nourished; no acute distress (up in chair on RA) Eyes: EOM intact bilaterally ENMT: Ears: no external ear abnormality Nose: no external nose abnormality Mouth: + dry oral mucous membranes Neck: no nuchal rigidity Respiratory: normal respiratory effort and able to speak in complete sentences (but very slightly sob) Auscultation: + diminished lung sounds Cardiovascular: RRR, no murmur, no edema Gastrointestinal (Abdomen): Inspection/Auscultation: normal bowel sounds Percussion/Palpation: abdomen soft; abdomen nontender Musculoskeletal: Extremities: strength 5/5 throughout Skin: no rashes, warm and dry R hip wound c/d/i Psychiatric: A+Ox3, euthymic affect Results & Data Vital Signs (Past 12 Hours) Vital Signs Temp Pulse Pulse Resp BP Pulse Ox 09/14/19 06:04 36.7 C 75 16 146/70 H 97 09/13/19 23:40 36.4 C L 71 16 135/78 99 Laboratory Results 09/14/19 04:36 09/12/19 05:33
[2019-09-14] MEDS ORDERED: IRON SUCROSE 200 MG in 0.9 % SODIUM CHLORIDE 100 ML IV SCH (09:15)
--- NOTE | 2019-09-14 10:48 | Orthopedic Progress Note ---
Date of Service September 14, 2019 Assessment & Plan (1) [place]-prosthetic fracture of femur following total hip arthroplasty: POD#5 Status post revision right total hip arthroplasty, ORIF proximal femur -Ancef x24 -DVT prophylaxis SCDs, teds, 81mg ASA BID -Partial weightbearing right lower extremity -Posterior hip precautions -PT/OT -A.m. labs, monitor H&H closely-hemoglobin 6.2, 6.3 yesterday, no blood transfusion secondary to mandaeism believes. Subjective Post Operative Progress Note Patient seen sitting up in bed, comfortable, denies complaints, pain well controlled, no acute issues. Denies F/C/N/V/SOP/CP Review of Systems Review of Systems: All systems reviewed & are unremarkable except as noted in HPI & below Constitutional: as per Subjective / HPI Physical Exam Physical Exam: RLE NVSI +EHL/FHL/TA/GS SILT grossly, +2 DP pulse, compartments soft NT, dressing cdi. No hematoma appreciated Constitutional: WD/WN, vitals as above Results & Data Vital Signs (Past 12 Hours) Vital Signs Temp Pulse Pulse Resp BP Pulse Ox 09/14/19 06:04 36.7 C 75 16 146/70 H 97 09/13/19 23:40 36.4 C L 71 16 135/78 99 Laboratory Results 09/14/19 09/14/19 09/13/19 Range/Units 08:34 04:36 14:16 WBC 6.88 (4.8-10.8) K/uL RBC 1.87 L (4.2-5.4) M/uL Hgb 6.2 L* (12.0-16.0) g/dL Hct 18.7 L* (37-47) % MCV 100.0 (80-100) fL MCH 33.2 (25-34) pg MCHC 33.2 (32-36) g/dL RDW Std Deviation 53.0 H (36.4-46.3) fL RDW Coeff of Brigitte 14.8 H (11.5-14.5) % Plt Count 423 H (130-400) K/uL MPV 9.5 (7.4-10.4) fL Immature Gran % (Auto) 5.7 % Neut % (Auto) 48.1 % Lymph % (Auto) 24.9 % Mcdonald % (Auto) 17.3 % Eos % (Auto) 2.8 % Baso % (Auto) 1.2 % Immature Gran # (Auto) 0.39 H (0.00-0.02) K/uL Neut # (Auto) 3.32 (1.4-6.5) K/uL Lymph # (Auto) 1.71 (1.2-3.4) K/uL Mcdonald # (Auto) 1.19 H (0.11-0.59) K/uL Eos # (Auto) 0.19 (0-0.5) K/uL Baso # (Auto) 0.08 (0-0.2) K/uL Polychromasia 1+ Folate 15.36 (>5.38) ng/ml Stool Occult Bld Scrn Negative (Negative) (1) [place]-prosthetic fracture of femur following total hip arthroplasty Encounter type: initial encounter Qualified Code(s): M97.8XXA - Periprosthetic fracture around other internal prosthetic joint, initial encounter; Z96.649 - Presence of unspecified artificial hip joint
[2019-09-14] MEDS: SENNA 8.6 MG TAB PO SCH (21:25)
[2019-09-14] MEDS: LATANOPROST 0.005% OP SOLN 2.5 ML BTL OPB SCH (21:27)
--- NOTE | 2019-09-14 22:17 | Hospitalist Progress Note ---
Date of Service September 14, 2019 Assessment & Plan (1) Acute anemia: Baseline hemoglobin 12.1 on 08/03/2019. Hemoglobin fell as low as 9.2 after right total hip arthroplasty on 08/23/2019. Admitted with periprosthetic fracture of right femur. Hemoglobin at time of admission was 10.7. Hemoglobin has fallen to 6.2. No gross GI bleeding and fecal occult blood was negative today. Probable acute blood loss anemia secondary to femur fracture and surgery. Patient is a Taoism and does not wish to receive blood products. Serum iron 22 with a transferrin saturation of 12%. B12 and folic acid normal. Apparent reaction to some oral iron products in the past, but not others. Parenteral iron and erythropoietin ordered. Follow H&H. 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 Presented with periprosthetic fracture of right femur. Revision of right total hip arthroplasty performed by Dr. Hart on 09/09/19. (3) Essential hypertension: Continue carvedilol. (4) Congestive heart failure with left ventricular diastolic dysfunction: Chronic left ventricular diastolic heart failure. Compensated. (5) DVT prophylaxis: Initially received subcutaneous heparin. Not receiving aspirin. Ambulate. (6) Discharge planning issues: Patient lives by herself in an apartment. Anticipate need for skilled care before returning to independent living. Case Management following. Internal Medicine follow-up with Dr. Adames. Daughter Nuris given update by phone this evening. Subjective Recheck for multiple problems. Patient seen in their room around 1000. Doing fairly well. Experiencing some fatigue, but ambulating with walker and assistance. Denies CP or SOB, but appears to be tachypneic at times. Postop pain improved. Review of Systems: Constitutional- no fever. Cardiac- no chest pain. Pulmonary- no cough or SOB. GI- no nausea, vomiting, diarrhea, melena, hematochezia. - no urinary symptoms. Otherwise, as noted above. Physical Exam Constitutional: no acute distress Eyes: + anicteric sclerae Respiratory: no respiratory distress Auscultation: lungs clear to auscultation bilaterally Cardiovascular: Rate/Rhythm: regular rate and regular rhythm Heart Sounds: no gallop and no cardiac rub Vessels: no JVD Extremities: no calf tenderness and no edema Gastrointestinal (Abdomen): normal bowel sounds, soft, nontender, no hepatosplenomegaly Musculoskeletal: Extremities: + extremities abnormal to inspection (right hip with incisional VAC) Skin: no rashes, warm and dry Psychiatric: Orientation: alert and oriented x 3 Results & Data Vital Signs (Past 12 Hours) Vital Signs Temp Pulse Pulse Resp BP Pulse Ox 09/14/19 21:24 95 H 153/75 H 09/14/19 15:33 36.9 C 83 16 120/52 L 95 Laboratory Results 09/14/19 04:36 09/12/19 05:33 (1) [place]-prosthetic fracture of femur following total hip arthroplasty Encounter type: initial encounter Qualified Code(s): M97.8XXA - Periprosthetic fracture around other internal prosthetic joint, initial encounter; Z96.649 - Presence of unspecified artificial hip joint
[2019-09-15] MEDS: ACETAMINOPHEN 500 MG TAB PO SCH ×3 (05:34→21:04)
[2019-09-15 07:02] LABS: Hematocrit (blood only) 21.9 % (37-47); Mean Corpuscular Hemoglobin 31.7 pg (25-34); Mean Corpuscular Volume 99.1 fL (80-100); Mean Platelet Volume 9.5 fL (7.4-10.4); Platelet Count 550 K/uL (130-400); RDW Coefficient of Variation 15.3 % (11.5-14.5); RDW Standard Deviation 53.2 fL (36.4-46.3); Red Blood Count 2.21 M/uL (4.2-5.4); White Blood Count 8.66 K/uL (4.8-10.8)
[2019-09-15 07:39] LABS: Basophils # (auto) 0.05 K/uL (0-0.2); Basophils % (auto) 0.6 %; Eosinophils # (auto) 0.12 K/uL (0-0.5); Eosinophils % (auto) 1.4 %; Immature Granulocytes # (auto) 0.56 K/uL (0.00-0.02); Immature Granulocytes % (auto) 6.5 %; Lymphocytes # (auto) 1.75 K/uL (1.2-3.4); Lymphocytes % (auto) 20.2 %; Monocytes # (auto) 1.33 K/uL (0.11-0.59); Monocytes % (auto) 15.4 %; Neutrophils # (auto) 4.85 K/uL (1.4-6.5); Neutrophils % (auto) 55.9 %; Polychromasia 1+
[2019-09-15 07:44] LABS: Nucleated RBC # (auto) 0.09 K/uL (0-0)
[2019-09-15] MEDS: carvediloL 3.125 MG TAB PO SCH ×2 (07:56→21:05)
[2019-09-15] MEDS: [UNRECOGNIZED DRUG - REMARK] PO SCH (07:56)
[2019-09-15] MEDS: DOCUSATE SODIUM 100 MG CAP PO SCH ×2 (07:57→20:48)
[2019-09-15] MEDS: LORATADINE 10 MG TAB PO SCH (07:57)
[2019-09-15] MEDS: MULTIVITAMIN TAB PO SCH (07:57)
[2019-09-15] MEDS: PANTOprazole 40 MG TAB PO SCH (07:57)
[2019-09-15] MEDS: ASPIRIN 81 MG ECTAB PO SCH ×2 (07:58→21:05)
[2019-09-15 08:26] LABS: Macrocytosis Present
--- NOTE | 2019-09-15 08:27 | Nephrology Progress Note ---
Date of Service September 15, 2019 Assessment & Plan (1) Acute anemia: hgb trending down rapidly until 09/13; mark 6.2; focus on stabilizing hgb -epo 74180 units SQ x 1 on 09/13 -tolerated 100 mg venofer on 09/13; 200 mg on 09/14; had another 200 mg today >> ideally would get 1 gm venofer total but that will depend on how long in house; should be able to get at least 750 mg before d/c -check hgb at least daily -suspect this anemia relates to surgeries; if responding well and retic count appropriate, reasonable to defer more extensive w/u of anemia unless response slows; FOBT neg x 1 Subjective seen on rounds this evening. noting some LE edema more than prior and RLE stiffness; ambulating w/ walker and help; moving bowels; no sob, no cp, tolera ting po Review of Systems Review of Systems: All systems reviewed & are unremarkable except as noted in HPI & below Physical Exam Constitutional: well developed and well nourished; no acute distress (up in chair on RA) Eyes: EOM intact bilaterally ENMT: Ears: no external ear abnormality Nose: no external nose abnormality Mouth: + dry oral mucous membranes Neck: no nuchal rigidity Respiratory: normal respiratory effort and able to speak in complete sentences Auscultation: lungs clear to auscultation bilaterally and + diminished lung sounds Cardiovascular: Rate/Rhythm: regular rate and regular rhythm Extremities: + edema (2+ pedal; trace pretibial R>L) Gastrointestinal (Abdomen): Inspection/Auscultation: normal bowel sounds Percussion/Palpation: abdomen soft; abdomen nontender Musculoskeletal: Extremities: strength 5/5 throughout Skin: no rashes, warm and dry Neurologic: ordoñez, fluent speech, notremor Psychiatric: A+Ox3, euthymic affect Results & Data Vital Signs (Past 12 Hours) Vital Signs Temp Pulse Pulse Resp BP BP Pulse Ox 09/15/19 06:18 36.8 C 101 H 16 136/73 95 09/14/19 22:40 37.0 C 90 16 131/60 95 09/14/19 21:24 95 H 153/75 H Laboratory Results 09/15/19 06:25 09/12/19 05:33
[2019-09-15] MEDS ORDERED: IRON SUCROSE 200 MG in 0.9 % SODIUM CHLORIDE 100 ML IV SCH (09:30)
--- NOTE | 2019-09-15 19:52 | Hospitalist Progress Note ---
Date of Service September 15, 2019 Assessment & Plan (1) Acute anemia: Baseline hemoglobin 12.1 on 08/03/2019. Hemoglobin fell as low as 9.2 after right total hip arthroplasty on 08/23/2019. Admitted with periprosthetic fracture of right femur. Hemoglobin at time of admission was 10.7. Hemoglobin fell as low as 6.2. No gross GI bleeding and fecal occult blood was negative 09/14. Probable acute blood loss anemia secondary to femur fracture and surgery. Patient is a Taoist and does not wish to receive blood products. Serum iron 22 with a transferrin saturation of 12%. B12 and folic acid normal. Apparent reaction to some oral iron products in the past, but not others. Receiving parenteral iron and erythropoietin. Hgb today = 7.0. Follow H&H. 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 Presented with periprosthetic fracture of right femur. Revision of right total hip arthroplasty performed by Dr. Hart on 09/09/19. (3) Essential hypertension: Continue carvedilol. (4) Congestive heart failure with left ventricular diastolic dysfunction: Chronic left ventricular diastolic heart failure. Compensated. (5) DVT prophylaxis: Initially received subcutaneous heparin. Not receiving aspirin. Ambulate. (6) Discharge planning issues: Patient lives by herself in an apartment. Anticipate need for skilled care before returning to independent living. Case Management following. Internal Medicine follow-up with Dr. Adames. Subjective Recheck for multiple problems. Patient seen in their room around 0950. Doing well. Ambulating with walker and assistance. Denies CP or SOB. Postop pain improved. Review of Systems: Constitutional- no fever. Cardiac- no chest pain. Pulmonary- no cough or SOB. GI- no nausea, vomiting, diarrhea, melena, hematochezia. - no urinary symptoms. Otherwise, as noted above. Physical Exam Constitutional: no acute distress Eyes: + anicteric sclerae Respiratory: no respiratory distress Auscultation: lungs clear to auscultation bilaterally Cardiovascular: Rate/Rhythm: regular rate and regular rhythm Heart Sounds: no gallop and no cardiac rub Vessels: no JVD Extremities: no calf tenderness and no edema Gastrointestinal (Abdomen): normal bowel sounds, soft, nontender, no hepa tosplenomegaly Musculoskeletal: Extremities: + extremities abnormal to inspection (right hip with incisional VAC) Skin: no rashes, warm and dry Psychiatric: Orientation: alert and oriented x 3 Results & Data Vital Signs (Past 12 Hours) Vital Signs Temp Pulse Resp BP BP Pulse Ox 09/15/19 15:07 36.9 C 82 16 118/59 L 96 09/15/19 10:50 36.8 C 75 124/75 98 09/15/19 09:50 36.9 C 81 111/69 96 Laboratory Results 09/15/19 06:25 09/12/19 05:33 (1) [place]-prosthetic fracture of femur following total hip arthroplasty Encounter type: initial encounter Qualified Code(s): M97.8XXA - Periprosthetic fracture around other internal prosthetic joint, initial encounter; Z96.649 - Presence of unspecified artificial hip joint
[2019-09-15] MEDS: SENNA 8.6 MG TAB PO SCH (20:48)
[2019-09-15] MEDS: LATANOPROST 0.005% OP SOLN 2.5 ML BTL OPB SCH (21:05)
[2019-09-15] MEDS: PHENYLEPHRINE PO PRN (21:06)
[2019-09-15] MEDS: TRAMADOL HCL 50 MG TABLET PO PRN (21:11)
[2019-09-16 05:26] LABS: Hematocrit (blood only) 20.3 % (37-47); Hemoglobin 6.5 g/dL (12.0-16.0); Mean Corpuscular Hemoglobin 32.8 pg (25-34); Mean Corpuscular Volume 102.5 fL (80-100); Mean Platelet Volume 9.4 fL (7.4-10.4); Nucleated RBC # (auto) 0.04 K/uL (0-0); Nucleated RBC % (auto) 0.6 %; Platelet Count 458 K/uL (130-400); RDW Coefficient of Variation 15.6 % (11.5-14.5); RDW Standard Deviation 54.8 fL (36.4-46.3); Red Blood Count 1.98 M/uL (4.2-5.4)
[2019-09-16 05:47] LABS: Basophils # (auto) 0.04 K/uL (0-0.2); Basophils % (auto) 0.6 %; Eosinophils # (auto) 0.19 K/uL (0-0.5); Eosinophils % (auto) 2.6 %; Immature Granulocytes # (auto) 0.54 K/uL (0.00-0.02); Immature Granulocytes % (auto) 7.5 %; Lymphocytes # (auto) 1.96 K/uL (1.2-3.4); Lymphocytes % (auto) 27.2 %; Monocytes # (auto) 1.16 K/uL (0.11-0.59); Monocytes % (auto) 16.1 %; Neutrophils # (auto) 3.31 K/uL (1.4-6.5); Reticulocyte % 7.9 % (0.5-2.0); Reticulocytes # 0.16 10^6/uL (0.02-0.10); Target Cells 1+; Tear Drop Cells 1+
[2019-09-16] MEDS: ACETAMINOPHEN 500 MG TAB PO SCH ×3 (05:59→20:32)
[2019-09-16] MEDS ORDERED: SODIUM CHLORIDE 0.9% IV SCH (08:00)
[2019-09-16] MEDS ORDERED: IRON SUCROSE IV SCH (08:00)
[2019-09-16] MEDS: DOCUSATE SODIUM 100 MG CAP PO SCH ×2 (08:13→20:32)
[2019-09-16] MEDS: PANTOprazole 40 MG TAB PO SCH (08:13)
[2019-09-16] MEDS: carvediloL 3.125 MG TAB PO SCH ×2 (08:14→20:33)
[2019-09-16] MEDS: ASPIRIN 81 MG ECTAB PO SCH ×2 (08:14→20:32)
[2019-09-16] MEDS: LORATADINE 10 MG TAB PO SCH (08:15)
[2019-09-16] MEDS: [UNRECOGNIZED DRUG - REMARK] PO SCH (08:15)
[2019-09-16] MEDS: MULTIVITAMIN TAB PO SCH (08:16)
--- NOTE | 2019-09-16 09:25 | Orthopedic Progress Note ---
Date of Service September 16, 2019 Assessment & Plan (1) [place]-prosthetic fracture of femur following total hip arthroplasty: POD#7 Status post revision right total hip arthroplasty, ORIF proximal femur -Ancef x24 -DVT prophylaxis SCDs, teds, 81mg ASA BID -Partial weightbearing right lower extremity -Posterior hip precautions -PT/OT -Hgb 6.5; Venofer transfusion this AM. Buddhism - refusing blood products - as per Med Service -DC planning - Rehab vs SNF upon dc. -dc Prevena wound vac Subjective Pt sitting up in chair this AM. Feeling a bit tired but states she had her first good nights sleep last night. Able to do her heel slides on her own this AM. Denies SOB,CP. Currently receiving Venefor transfusion. Hgb 6.5 Physical Exam Physical Exam: Prevena wound vac in place. No overt erythema around the dressing. Thigh swollen but not tense. Calves soft, NT. NV intact. Toes mobile. Hip appears located. Results & Data Vital Signs (Past 12 Hours) Vital Signs Temp Pulse Resp BP BP Pulse Ox 09/16/19 07:23 36.6 C 69 16 137/70 98 09/15/19 23:10 36.3 C L 72 16 106/67 98 Laboratory Results Laboratory Results WBC 7.20 K/uL (4.8-10.8) 09/16/19 04:52 RBC 1.98 M/uL (4.2-5.4) L 09/16/19 04:52 Hgb 6.5 g/dL (12.0-16.0) L* 09/16/19 04:52 Hct 20.3 % (37-47) L* 09/16/19 04:52 MCV 102.5 fL (80-100) H 09/16/19 04:52 MCH 32.8 pg (25-34) 09/16/19 04:52 MCHC 32.0 g/dL (32-36) 09/16/19 04:52 RDW Std Deviation 54.8 fL (36.4-46.3) H 09/16/19 04:52 RDW Coeff of Brigitte 15.6 % (11.5-14.5) H 09/16/19 04:52 Plt Count 458 K/uL (130-400) H 09/16/19 04:52 MPV 9.4 fL (7.4-10.4) 09/16/19 04:52 Immature Gran % (Auto) 7.5 % 09/16/19 04:52 Neut % (Auto) 46.0 % 09/16/19 04:52 Lymph % (Auto) 27.2 % 09/16/19 04:52 [place] % (Auto) 16.1 % 09/16/19 04:52 Eos % (Auto) 2.6 % 09/16/19 04:52 Baso % (Auto) 0.6 % 09/16/19 04:52 Reticulocyte % (Auto) 7.9 % (0.5-2.0) H 09/16/19 04:52 Immature Gran # (Auto) 0.54 K/uL (0.00-0.02) H 09/16/19 04:52 Neut # (Auto) 3.31 K/uL (1.4-6.5) 09/16/19 04:52 Lymph # (Auto) 1.96 K/uL (1.2-3.4) 09/16/19 04:52 [place] # (Auto) 1.16 K/uL (0.11-0.59) H 09/16/19 04:52 Eos # (Auto) 0.19 K/uL (0-0.5) 09/16/19 04:52 Baso # (Auto) 0.04 K/uL (0-0.2) 09/16/19 04:52 Reticulocyte # 0.16 10^6/uL (0.02-0.10) H 09/16/19 04:52 Absolute Nucleated RBC 0.04 K/uL (0-0) H 09/16/19 04:52 Nucleated RBC % (auto) 0.6 % 09/16/19 04:52 RBC Morphology Unremarkable 09/11/19 05:26 Polychromasia 1+ 09/15/19 06:25 Macrocytosis Present 09/15/19 06:25 Target Cells 1+ 09/16/19 04:52 Tear Drop Cells 1+ 09/16/19 04:52 PT 10.6 Seconds (9.0-12.0) 09/07/19 00:15 INR 1.0 (0.9-1.1) 09/07/19 00:15 APTT 25.2 Seconds (21.0-31.0) 09/07/19 00:15 PTT Ratio 0.9 09/07/19 00:15 Sodium 141 mmol/L (136-145) 09/12/19 05:33 Potassium 3.9 mmol/L (3.5-5.1) 09/12/19 05:33 Chloride 109 mmol/L (98-107) H 09/12/19 05:33 Carbon Dioxide 27 mmol/L (21-32) 09/12/19 05:33 Anion Gap 5.0 (3-11) 09/12/19 05:33 BUN 16 mg/dl (7-18) 09/12/19 05:33 Creatinine 0.65 mg/dl (0.6-1.2) 09/12/19 05:33 Est Cr Clr Drug Dosing 51.4 ml/min 09/12/19 05:33 Est GFR ( Amer) 92.5 09/12/19 05:33 Est GFR (Non-Af Amer) 79.8 09/12/19 05:33 BUN/Creatinine Ratio 25.3 (10-20) H 09/12/19 05:33 Glucose 89 mg/dl (70-99) 09/12/19 05:33 Calcium 8.0 mg/dl (8.5-10.1) L 09/12/19 05:33 Magnesium 2.0 mg/dl (1.8-2.4) 09/07/19 07:26 Iron 22 mcg/dl (35-150) L 09/13/19 05:06 Transferrin 127 mg/dl (200-360) L 09/13/19 05:06 Transferrin % Sat 12 % (15-50) L 09/13/19 05:06 Ferritin 609.7 ng/ml (8-388) H 09/12/19 14:11 Ferritin Cancelled 09/12/19 14:11 Vitamin B12 579 pg/ml (211-911) 09/12/19 14:11 Folate 15.36 ng/ml (>5.38) 09/13/19 14:16 Urine Color Dark Yellow 09/07/19 Unknown Urine Appearance Clear (Clear) 09/07/19 Unknown Urine pH 6.0 (4.5-7.5) 09/07/19 Unknown Ur Specific [place] 1.014 (1.000-1.030) 09/07/19 Unknown Urine Protein Negative (Negative) 09/07/19 Unknown Urine Glucose (UA) Negative (Negative) 09/07/19 Unknown Urine Ketones 1+ (Negative) H 09/07/19 Unknown Urine Blood Negative (Negative) 09/07/19 Unknown Urine Nitrite Negative (Negative) 09/07/19 Unknown Urine Bilirubin Negative (Negative) 09/07/19 Unknown Urine Urobilinogen Negative (Negative) 09/07/19 Unknown Ur Leukocyte Esterase Negative (Negative) 09/07/19 Unknown Stool Occult Bld Scrn Negative (Negative) 09/14/19 08:34 Blood Type A Positive 09/07/19 00:15 Antibody Screen NEGATIVE 09/07/19 00:15 Crossmatch See Detail 09/07/19 00:15 (1) [place]-prosthetic fracture of femur following total hip arthroplasty Encounter type: initial encounter Qualified Code(s): M97.8XXA - Periprosthetic fracture around other internal prosthetic joint, initial encounter; Z96.649 - Presence of unspecified artificial hip joint
--- NOTE | 2019-09-16 17:47 | Hospitalist Progress Note ---
Date of Service September 16, 2019 Assessment & Plan (1) Acute anemia: Baseline hemoglobin 12.1 on 08/03/2019. Hemoglobin fell as low as 9.2 after right total hip arthroplasty on 08/23/2019. Admitted with periprosthetic fracture of right femur. Hemoglobin at time of admission was 10.7. Hemoglobin fell as low as 6.2. No gross GI bleeding and fecal occult blood was negative 09/14. Probable acute blood loss anemia secondary to femur fracture and surgery. Patient is a Mormonism and does not wish to receive blood products. Serum iron 22 with a transferrin saturation of 12%. B12 and folic acid normal. Apparent reaction to some oral iron products in the past, but not others. Receiving parenteral iron and erythropoietin. Hgb today = 6.5. Retic count 7.9%. Follow H&H. 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 Presented with periprosthetic fracture of right femur. Revision of right total hip arthroplasty performed by Dr. Hart on 09/09/19. (3) Essential hypertension: Continue carvedilol. (4) Congestive heart failure with left ventricular diastolic dysfunction: Chronic left ventricular diastolic heart failure. Compensated. (5) DVT prophylaxis: Initially received subcutaneous heparin. Not receiving aspirin. Ambulate. (6) Discharge planning issues: Patient lives by herself in an apartment. Anticipate need for skilled care before returning to independent living. Case Management following. Internal Medicine follow-up with Dr. Adames. Subjective Recheck for multiple problems. Patient seen in their room around 1040. Doing well. Out of bed in chair this morning. Ambulating with walker and assistance. Denies CP or SOB. Postop pain improved. Review of Systems: Constitutional- no fever. Cardiac- no chest pain. Pulmonary- no cough or SOB. GI- no nausea, vomiting, diarrhea, melena, hematochezia. - no urinary symptoms. Otherwise, as noted above. Physical Exam Constitutional: no acute distress Eyes: + anicteric sclerae Respiratory: no respiratory distress Auscultation: lungs clear to auscultation bilaterally Cardiovascular: Rate/Rhythm: regular rate and regular rhythm Heart Sounds: + murmur (I/ sys murmur at base); no gallop and no cardiac rub Vessels: no JVD Extremities: no calf tenderness and no edema Gastrointestinal (Abdomen): normal bowel sounds, soft, nontender, no hepatosplenomegaly Skin: no rashes, warm and dry Psychiatric: Orientation: alert and oriented x 3 Results & Data Vital Signs (Past 12 Hours) Vital Signs Temp Pulse Resp BP Pulse Ox 09/16/19 15:43 36.7 C 75 16 109/64 94 09/16/19 07:23 36.6 C 69 16 137/70 98 Laboratory Results 09/16/19 04:52 09/12/19 05:33 (1) [place]-prosthetic fracture of femur following total hip arthroplasty Encounter type: initial encounter Qualified Code(s): M97.8XXA - Periprosthetic fracture around other internal prosthetic joint, initial encounter; Z96.649 - Presence of unspecified artificial hip joint
[2019-09-16] MEDS ORDERED: EPOETIN ALFA 20,000 UNITS/ML VIAL SQ ONE (18:25)
--- NOTE | 2019-09-16 18:26 | Nephrology Progress Note ---
Date of Service September 16, 2019 Assessment & Plan (1) Acute anemia: hgb trending down rapidly until 09/13; mark 6.2; highest past several days has been 7.0, dropped to 6.5 today. focus on stabilizing hgb -epo 66191 units SQ x 1 on 09/13 -tolerated 100 mg venofer on 09/13; 200 mg on 09/14; on 09/15 200 mg; on 09/16 250 mg>> ideally would get 1 gm venofer total >> will give another 250 mg IV venofer tomorrow and another 55118 units SQ epo today (orders in) -check hgb at least daily -suspect this anemia relates to surgeries; if responding well and retic count appropriate (it is robust), reasonable to defer more extensive w/u of anemia unless response slows; FOBT neg x 1 Subjective slept well; feels better today; cont to deny sob, gen weakness, fatiguability, chest pain/pressure. denies voiding issues, eating well. tolerated venofer 250 mg today Review of Systems Review of Systems: All systems reviewed & are unremarkable except as noted in HPI & below Physical Exam Constitutional: well developed and well nourished; no acute distress (up in chair on RA) Eyes: EOM intact bilaterally ENMT: Ears: no external ear abnormality Nose: no external nose abnormality Mouth: + dry oral mucous membranes Neck: no nuchal rigidity Respiratory: normal respiratory effort and able to speak in complete sentences Auscultation: lungs clear to auscultation bilaterally and + diminished lung sounds Cardiovascular: RRR, no murmur, no edema Rate/Rhythm: regular rate and regular rhythm Extremities: + edema (2+ pedal; trace pretibial R>L) Gastrointestinal (Abdomen): Inspection/Auscultation: normal bowel sounds Percussion/Palpation: abdomen soft; abdomen nontender Musculoskeletal: Extremities: strength 5/5 throughout Skin: no rashes, warm and dry Psychiatric: A+Ox3, euthymic affect Results & Data Vital Signs (Past 12 Hours) Vital Signs Temp Pulse Resp BP Pulse Ox 09/16/19 15:43 36.7 C 75 16 109/64 94 09/16/19 07:23 36.6 C 69 16 137/70 98 Laboratory Results 09/16/19 04:52 09/12/19 05:33
[2019-09-16] MEDS: TRAMADOL HCL 50 MG TABLET PO PRN (20:31)
[2019-09-16] MEDS: SENNA 8.6 MG TAB PO SCH (20:32)
[2019-09-16] MEDS: LATANOPROST 0.005% OP SOLN 2.5 ML BTL OPB SCH (20:33)
[2019-09-17] MEDS: ACETAMINOPHEN 500 MG TAB PO SCH ×3 (05:31→21:29)
[2019-09-17 06:45] LABS: Hematocrit (blood only) 21.4 % (37-47); Hemoglobin 6.9 g/dL (12.0-16.0); Mean Corpuscular Hemoglobin 33.3 pg (25-34); Mean Corpuscular Hgb Conc 32.2 g/dL (32-36); Mean Corpuscular Volume 103.4 fL (80-100); Mean Platelet Volume 9.1 fL (7.4-10.4); Platelet Count 460 K/uL (130-400); RDW Coefficient of Variation 16.9 % (11.5-14.5); RDW Standard Deviation 55.6 fL (36.4-46.3); Red Blood Count 2.07 M/uL (4.2-5.4); White Blood Count 6.99 K/uL (4.8-10.8)
[2019-09-17 07:04] LABS: Basophils # (auto) 0.05 K/uL (0-0.2); Basophils % (auto) 0.7 %; Eosinophils # (auto) 0.17 K/uL (0-0.5); Eosinophils % (auto) 2.4 %; Immature Granulocytes # (auto) 0.66 K/uL (0.00-0.02); Immature Granulocytes % (auto) 9.4 %; Lymphocytes # (auto) 2.04 K/uL (1.2-3.4); Lymphocytes % (auto) 29.2 %; Monocytes # (auto) 0.99 K/uL (0.11-0.59); Monocytes % (auto) 14.2 %; Neutrophils # (auto) 3.08 K/uL (1.4-6.5); Neutrophils % (auto) 44.1 %; Polychromasia 1+
[2019-09-17] MEDS: DOCUSATE SODIUM 100 MG CAP PO SCH ×2 (07:56→21:59)
[2019-09-17] MEDS: ASPIRIN 81 MG ECTAB PO SCH ×2 (07:56→21:26)
[2019-09-17] MEDS: PANTOprazole 40 MG TAB PO SCH (07:56)
[2019-09-17] MEDS: MULTIVITAMIN TAB PO SCH (07:56)
[2019-09-17] MEDS: [UNRECOGNIZED DRUG - REMARK] PO SCH (07:56)
[2019-09-17] MEDS: LORATADINE 10 MG TAB PO SCH (07:56)
[2019-09-17] MEDS: carvediloL 3.125 MG TAB PO SCH ×2 (07:56→21:25)
[2019-09-17] MEDS ORDERED: IRON SUCROSE IV SCH (08:00)
[2019-09-17] MEDS ORDERED: SODIUM CHLORIDE 0.9% IV SCH (08:00)
--- NOTE | 2019-09-17 08:34 | Hospitalist Progress Note ---
Date of Service September 17, 2019 Assessment & Plan (1) Acute anemia: Baseline hemoglobin 12.1 on 08/03/2019. Hemoglobin fell as low as 9.2 after right total hip arthroplasty on 08/23/2019. Admitted with periprosthetic fracture of right femur. Hemoglobin at time of admission was 10.7. Hemoglobin fell as low as 6.2. No gross GI bleeding and fecal occult blood was negative 09/14. Probable acute blood loss anemia secondary to femur fracture and surgery. Patient is a Rastafari and does not wish to receive blood products. Serum iron 22 with a transferrin saturation of 12%. B12 and folic acid normal. Apparent reaction to some oral iron products in the past, but not others. Receiving parenteral iron and erythropoietin. Retic count 09/16 7.9%. Hgb today = 6.9. Continue to follow H&H. 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 Presented with periprosthetic fracture of right femur. Revision of right total hip arthroplasty performed by Dr. Hart on 09/09/19. (3) Essential hypertension: Continue carvedilol. (4) Congestive heart failure with left ventricular diastolic dysfunction: Chronic left ventricular diastolic heart failure. Compensated. (5) DVT prophylaxis: Initially received subcutaneous heparin. Not receiving aspirin. Ambulate. (6) Discharge planning issues: Patient lives by herself in an apartment. Anticipate need for skilled care before returning to independent living. Case Management following. Internal Medicine follow-up with Dr. Adames. Subjective Recheck for multiple problems. Patient seen in their room around 0810. Doing well. Ambulating with walker and assistance. Arms / hands tired from using walker. Denies CP or SOB. Postop pain improved. Wound VAC removed. Review of Systems: Constitutional- no fever. Cardiac- no chest pain. Pulmonary- no cough or SOB. GI- no nausea, vomiting, diarrhea, melena, hematochezia. - no urinary symptoms. Otherwise, as noted above. Physical Exam Constitutional: no acute distress Eyes: + anicteric sclerae Respiratory: no respiratory distress Auscultation: lungs clear to auscultation bilaterally Cardiovascular: Rate/Rhythm: regular rate and regular rhythm Heart Sounds: + murmur (I/ sys murmur at base); no gallop and no cardiac rub Vessels: no JVD Extremities: no calf tenderness and no edema Gastrointestinal (Abdomen): normal bowel sounds, soft, nontender, no hepatosplenomegaly Musculoskeletal: Extremities: + extremities abnormal to inspection (right hip bandaged) Skin: no rashes, warm and dry Psychiatric: Orientation: alert and oriented x 3 Results & Data Vital Signs (Past 12 Hours) Vital Signs Temp Pulse Resp BP Pulse Ox 09/17/19 07:16 36.6 C 74 18 145/79 H 98 09/16/19 23:39 36.4 C L 77 18 141/83 H 99 Laboratory Results 09/17/19 06:19 09/12/19 05:33 (1) [place]-prosthetic fracture of femur following total hip arthroplasty Encounter type: initial encounter Qualified Code(s): M97.8XXA - Periprosthetic fracture around other internal prosthetic joint, initial encounter; Z96.649 - Presence of unspecified artificial hip joint
--- NOTE | 2019-09-17 09:56 | Orthopedic Progress Note ---
Date of Service September 17, 2019 Assessment & Plan (1) [place]-prosthetic fracture of femur following total hip arthroplasty: POD#8 Status post revision right total hip arthroplasty, ORIF proximal femur -Ancef x24 -DVT prophylaxis SCDs, teds, 81mg ASA BID -Partial weightbearing right lower extremity -Posterior hip precautions -PT/OT -Hgb 6.9; trending up at this time. Rastafari - refusing blood products - tx of acute post op anemia as per Med Service -DC planning - Rehab vs SNF upon dc. -Patient will need to follow-up in the office 1 week from discharge, . Subjective Post Operative Progress Note Patient seen this a.m. while ambulating in room, comfortable, denies complaints, pain well controlled, no acute issues. Denies fevers, chills, nausea, vomiting, shortness of breath or chest pain. Review of Systems Review of Systems: All systems reviewed & are unremarkable except as noted in HPI & below Constitutional: as per Subjective / HPI Physical Exam Physical Exam: RLE NVSI +EHL/FHL/TA/GS SILT grossly, +2 DP pulse, compartments soft NT, dressing cdi. Constitutional: WD/WN, vitals as above Results & Data Vital Signs (Past 12 Hours) Vital Signs Temp Pulse Resp BP Pulse Ox 09/17/19 07:16 36.6 C 74 18 145/79 H 98 09/16/19 23:39 36.4 C L 77 18 141/83 H 99 Laboratory Results 09/17/19 Range/Units 06:19 WBC 6.99 (4.8-10.8) K/uL RBC 2.07 L (4.2-5.4) M/uL Hgb 6.9 L* (12.0-16.0) g/dL Hct 21.4 L (37-47) % MCV 103.4 H (80-100) fL MCH 33.3 (25-34) pg MCHC 32.2 (32-36) g/dL RDW Std Deviation 55.6 H (36.4-46.3) fL RDW Coeff of Brigitte 16.9 H (11.5-14.5) % Plt Count 460 H (130-400) K/uL MPV 9.1 (7.4-10.4) fL Immature Gran % (Auto) 9.4 % Neut % (Auto) 44.1 % Lymph % (Auto) 29.2 % [place] % (Auto) 14.2 % Eos % (Auto) 2.4 % Baso % (Auto) 0.7 % Immature Gran # (Auto) 0.66 H (0.00-0.02) K/uL Neut # (Auto) 3.08 (1.4-6.5) K/uL Lymph # (Auto) 2.04 (1.2-3.4) K/uL Scott # (Auto) 0.99 H (0.11-0.59) K/uL Eos # (Auto) 0.17 (0-0.5) K/uL Baso # (Auto) 0.05 (0-0.2) K/uL Polychromasia 1+ (1) [place]-prosthetic fracture of femur following total hip arthroplasty Encounter type: initial encounter Qualified Code(s): M97.8XXA - Periprosthetic fracture around other internal prosthetic joint, initial encounter; Z96.649 - Presence of unspecified artificial hip joint
[2019-09-17] MEDS: PHENYLEPHRINE PO PRN ×2 (13:42→19:10)
[2019-09-17] MEDS: LATANOPROST 0.005% OP SOLN 2.5 ML BTL OPB SCH (21:28)
[2019-09-17] MEDS: SENNA 8.6 MG TAB PO SCH (21:35)
[2019-09-18] MEDS: ACETAMINOPHEN 500 MG TAB PO SCH ×2 (05:28→13:37)
[2019-09-18 06:30] LABS: Hematocrit (blood only) 22.3 % (37-47); Hemoglobin 7.1 g/dL (12.0-16.0)
[2019-09-18] MEDS: DOCUSATE SODIUM 100 MG CAP PO SCH (08:42)
[2019-09-18] MEDS: [UNRECOGNIZED DRUG - REMARK] PO SCH (08:43)
[2019-09-18] MEDS: PHENYLEPHRINE PO PRN (08:44)
[2019-09-18] MEDS: PANTOprazole 40 MG TAB PO SCH (08:45)
[2019-09-18] MEDS: LORATADINE 10 MG TAB PO SCH (08:45)
[2019-09-18] MEDS: ASPIRIN 81 MG ECTAB PO SCH (08:45)
[2019-09-18] MEDS: MULTIVITAMIN TAB PO SCH (08:45)
[2019-09-18] MEDS: carvediloL 3.125 MG TAB PO SCH (08:45)
--- NOTE | 2019-09-18 08:59 | Hospitalist Progress Note ---
Date of Service September 18, 2019 Assessment & Plan (1) Acute anemia: Baseline hemoglobin 12.1 on 08/03/2019. Hemoglobin fell as low as 9.2 after right total hip arthroplasty on 08/23/2019. Developed atraumatic right hip pain and came to ED for evaluation. X-rays demonstrated periprosthetic fracture of right femur. Hemoglobin at time of this admission was 10.7 and fell as low as 6.2. No gross GI bleeding and fecal occult blood was negative 09/14. Probable acute blood loss anemia secondary to femur fracture and surgery. Patient is a Yazdanism and does not wish to receive blood products. Serum iron 22 with a transferrin saturation of 12%. B12 and folic acid normal. Apparent reaction to some oral iron products in the past, but not others. Receiving parenteral iron (total of 1000 mg) and erythropoietin. Retic count 09/16 7.9%. Hgb today = 7.1. Continue to follow H&H- suggest weekly with pediatric tube. May need additional parenteral Fe as an outpatient if H/H remains low. 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 Discharged to home. Developed atraumatic right hip pain and came to ED for evaluation. X-rays demonstrated periprosthetic fracture of right femur. Revision of right total hip arthroplasty performed by Dr. Hart on 09/09/19. Continue DVT prophylaxis- ASA 81 mg BID, SCD's, TEDS. Partial weight bearing RLE. Posterior hip precautions. PT / OT. Outpatient evaluation for osteoporosis recommended. (3) Essential hypertension: Continue carvedilol. (4) Congestive heart failure with left ventricular diastolic dysfunction: Chronic left ventricular diastolic heart failure. Compensated. (5) DVT prophylaxis: Initially received subcutaneous heparin. Now receiving aspirin. SCD's. TEDS. Ambulate. (6) Discharge planning issues: Patient lives by herself in an apartment. Needs skilled care before returning to independent living. Case Management following. Arrangements being made for transfer to [facility] for skilled care. Orthopedics follow-up with Dr. Hart in his clinic in 1 week. Internal Medicine follow-up with Dr. Adames after discharge from skilled care. Subjective Recheck for multiple problems. Patient seen in their room around 0800. Doing well. Denies CP or SOB. Postop pain improved. Review of Systems: Constitutional- no fever. Cardiac- no chest pain. Pulmonary- no cough or SOB. GI- no nausea, vomiting, diarrhea, melena, hematochezia. - no urinary symptoms. Otherwise, as noted above. Physical Exam Constitutional: no acute distress Eyes: + anicteric sclerae Respiratory: no respiratory distress Auscultation: lungs clear to auscultation bilaterally Cardiovascular: Rate/Rhythm: regular rate and regular rhythm Heart Sounds: + murmur (I/ sys murmur at base); no gallop and no cardiac rub Vessels: no JVD Extremities: no calf tenderness and no edema Gastrointestinal (Abdomen): normal bowel sounds, soft, nontender, no hepatosplenomegaly Musculoskeletal: Extremities: + extremities abnormal to inspection (right hip incision stapled, no erythema or drainage) Skin: no rashes, warm and dry Psychiatric: Orientation: alert and oriented x 3 Results & Data Vital Signs (Past 12 Hours) Vital Signs Temp Pulse Resp BP Pulse Ox 09/18/19 07:14 36.8 C 76 16 152/72 H 97 09/17/19 23:05 36.9 C 89 16 136/75 95 Laboratory Results Laboratory Results - last 24 hr 09/18/19 05:20 Hgb 7.1 L Hct 22.3 L (1) [place]-prosthetic fracture of femur following total hip arthroplasty Encounter type: initial encounter Qualified Code(s): M97.8XXA - Periprosthetic fracture around other internal prosthetic joint, initial encounter; Z96.649 - Presence of unspecified artificial hip joint
--- NOTE | 2019-09-18 09:20 | Discharge Summary ---
Date of Service September 18, 2019 Admission HPI Per Admitting Provider his is an 88-year-old female with past medical history significant for hyperlipidemia, chronic diastolic CHF, chronic kidney disease stage III, venous insufficiency, hypertension, GERD, urinary incontinence, general osteoarthrosis. A couple of weeks ago, had right hip replacement surgery. Lives alone currently, however, since surgery daughter living with her. She walks with a walker. Since last few days she is having pain in the right hip. Today, her friend was helping her to go to bathroom and was having severe pain in the right hip, and decided to come to the hospital. Here the imaging studies showed right periprosthetic fracture. Ortho was notified by the ER.To admit to the hospital and will be seen by ortho in the a.m. Currently resting comfortably and hemodynamically stable. Denies any headache, no dizziness, no blurred vision, hard of hearing. No runny nose, no sore throat, no difficulty swallowing. Appetite is okay. No chest pain or shortness of breath. No cough, no nausea, no vomiting, no abdominal pain. Normal bowel and bladder movements. No burning micturition. Principal Diagnosis periprosthetic fracture right femur acute blood loss anemia Discharge Data Allergies Allergy/AdvReac Type Severity Reaction Status Date / Time bee venom protein (honey bee) Allergy Intermediate SWELLING Verified 09/06/19 23:48 estrogens, conjugated Allergy Intermediate SWELLING Verified 09/06/19 23:48 OF EYES ferrous sulfate Allergy Intermediate SWELLING Verified 09/06/19 23:48 OF EYES oxycodone Allergy Intermediate Hives, Verified 09/06/19 23:48 swelling around eyes. Sulfa (Sulfonamide Allergy Intermediate HIVES, Verified 09/06/19 23:48 Antibiotics) SWELLING OF EYES adhesive AdvReac Intermediate SKIN Verified 09/06/19 23:48 IRRITATION-REDNESS, ITCHING MADSEN Allergy Intermediate Hives Uncoded 09/06/19 23:48 Consultations 09/07/19 00:13 ED Decision to Admit Stat 09/07/19 02:14 Consult Case Management - Discharge Planning Routine 09/07/19 08:00 Consult Orthopedic Surgery Routine 09/10/19 08:00 Consult Case Management - Discharge Planning Routine 09/12/19 14:15 Consult Nephrology Routine Procedures Performed Operation Date: 09/09/19 07:00 Actual Procedures p Right Total Hip Revision(Right) - Zack Hart DO Ordered Studies 09/09/19 07:00 FL fluoroscopy <1hr Routine FL hip RT 1V Routine Hospital Course (1) [place]-prosthetic fracture of femur following total hip arthroplasty: Status post right total hip arthroplasty on 08/23/19; discharged to home. Developed atraumatic right hip pain and came to ED for evaluation. X-rays demonstrated periprosthetic fracture of right femur. Revision of right total hip arthroplasty performed by Dr. Hart on 09/09/19. Continue DVT prophylaxis- ASA 81 mg BID, SCD's, TEDS. Partial weight bearing RLE. Posterior hip precautions. PT / OT. Continue calcium + vitamin D. Outpatient evaluation for osteoporosis recommended. (2) Acute anemia: Baseline hemoglobin 12.1 on 08/03/2019. Hemoglobin fell as low as 9.2 after right total hip arthroplasty on 08/23/2019. Developed atraumatic right hip pain and came to ED for evaluation. X-rays demonstrated periprosthetic fracture of right femur. Hemoglobin at time of this admission was 10.7 and fell as low as 6.2. No gross GI bleeding and fecal occult blood was negative 09/14. Probable acute blood loss anemia secondary to femur fracture and surgery. Patient is a Gnosticist and does not wish to receive blood products. Serum iron 22 with a transferrin saturation of 12%. B12 and folic acid normal. Apparent reaction to oral iron products in the past. Receiving parenteral iron (total of 1000 mg) and erythropoietin. Retic count 09/16 7.9%. Hgb day of discharge = 7.1. Continue to follow H&H- suggest weekly with pediatric tube. May need additional parenteral Fe as an outpatient if H/H remains low. (3) Essential hypertension: Continue carvedilol. (4) Congestive heart failure with left ventricular diastolic dysfunction: Chronic left ventricular diastolic heart failure. Compensated. (5) DVT prophylaxis: Initially received subcutaneous heparin. Now receiving aspirin. SCD's. TEDS. Ambulate. (6) Discharge planning issues: Patient lives by herself in an apartment. Needs skilled care before returning to independent living. Case Management following. Arrangements being made for transfer to [facility] for skilled care. Orthopedics follow-up with Dr. Hart in his clinic in 1 week. Internal Medicine follow-up with Dr. Adames after discharge from skilled care. Total Time Total Time Spent Total Time Spent (In Minutes): 45 Discharge Plan Discharge Items Patient Disposition: Transfer Residential Fac Reason For Visit: HIP PAIN Discharge Diagnosis: periprosthetic fracture right femur acute blood loss anemia Condition on Discharge: Good Activity: As commented below Activity Comment: partial weight bearing right leg; walk with walker and assistance Non-emergency contact: Primary Care Provider, Hospitalist and Surgeon Call non-emergency contact if: you have any medication questions, your symptoms worsen and your temperature is above 101 Follow-up/Referrals: Alberto Adames DO [Primary Care Provider] - (Please contact office to arrange for recheck within 1 week after discharge from your facility. ) Zack Hart DO [Physician] - (Please contact office to arrange for recheck in 1 week. ) Diet: Heart Healthy Addtl Attending Provider Instructions: ACTIVITY RECOMMENDATIONS: SELF CARE INSTRUCTIONS AFTER REVISION TOTAL HIP REPLACEMENT Until the incision and soft tissues around your hip have healed, there is a possibility that the hip prosthesis could dislocate. A. Observe the following precautions to prevent dislocation: 1. Don't bend your hip greater than 90 degrees. 2. Avoid crossing your legs or ankles while standing or lying. 3. Sit with your feet placed 6 inches apart. 4. When sitting, keep your knees below your hips. Sit on a firm surface, avoid deep, soft chairs and couches. Use an elevated toilet seat in the bathroom. 5. Don't bend over at the waist. Use a long handled shoehorn and a sock aid to help you put on your shoes and socks. A rn bsn can help you hop picker objects that are too high or too low to reach. 6. Keep car riding to a minimum for at least one month after surgery. B. Your balance may be shaky for a while. Use crutches or a walker until directed by your doctor. C. Use hand rails when walking on stairs. D. Wear low heeled shoes with non-slip soles. E. Be sure that your floors are free of things that could trip you - throw rugs, electrical cords, small objects. Avoid wet and waxed floors, especially with crutches and canes. F. Try to walk several times a day with rest periods between. G. Continue with all the exercises taught to you in the hospital. Again, make walking a part of your daily routine. SPECIAL CARE INSTRUCTIONS: VERY IMPORTANT TO READ AND REVIEW A. You may still be at risk for phlebitis and blood clots. 1. Wear surgical stockings (SARAH hose) for 2 weeks after surgery to improve circulation and reduce swelling. 2. Take Aspirin 81mg twice daily for 4 weeks or as directed by your doctor. This is your blood thinner. 3. High risk patients may be prescribed a stronger blood thinner if necessary. 4. If you are on Coumadin normally, your family doctor/construction driller should monitor your blood work. Expect a phone call the day of or the day after bloodwork is drawn to adjust your dosage. B. You must take antibiotics before having dental work, bladder, bowel and other surgery. Your doctor will provide you with a permanent card to carry describing precautions. C. Call [facility] if you have a fever, redness or swelling around the incision, cloudy drainage from incision, or sudden increase in pain in your hip, not relieved by your regular pain medication. D. Please call the office at if you have any concerns or questions about your operation or recovery. * YOU MAY SHOWER, NO TUB BATHS UNTIL CLEARED BY YOUR DOCTOR. * WEAR SARAH HOSE 20 HOURS PER DAY FOR 2 WEEKS. * YOU SHOULD USE A WALKER OR CRUTCHES FOR 2-4 WEEKS. THIS WILL HELP PREVENT STRAIN ON YOUR HIP MUSCLE AND ALLOW IT TO HEAL PROPERLY. YOU MAY WEAN TO A CANE TOLERATED. * MOST PATIENTS WILL HAVE HOME NURSING FOR THERAPY. IF YOU DECIDE TO DO OUTPATIENT PHYSICAL THERAPY, PLEASE SCHEDULE THIS 3 TIMES PER WEEK. *PREVENA incisional vac is a special dressing covering your incision. This dressing provides a sterile dry environment while you are healing. The dressing is to be left in place for 7 days post-operatively. Your home nurse or surgeon will remove. If you develop any redness or blisters or have any questions notify your surgeon immediately. FOLLOW UP VISIT: If appointment is not already scheduled: Please call [facility] to make a follow-up appointment for 2 weeks after your surgery at . Addtl Community Worker Provider Instructions: Partial weight-bearing RLE. Posterior hip precautions. Sterile gauze dressing to right hip incision daily + PRN. SARAH stockings. SCD's. Please check H/H weekly with pediatric tube. Thank you for receiving this patient in transfer. Please call if you have any questions. Jacinto Rivera Pending Studies at Discharge: No Stand-Alone Forms: My [facility] Skilled Items Patient informed of condition?: Yes DNR: No Discharge Level of Care: Skilled Communicable Disease: No Discharge Prognosis: Improving Lines: None Urinary Catheter: No Medications and DC Order Prescriptions: Continued calcium carbonate-vitamin D3 [Calcium 600 with Vitamin D3] 600 mg(1,500mg) - 500 unit Capsule 1 cap PO QAM RF: 0 carvedilol 3.125 mg Tablet 3.125 mg PO BIDM RF: 0 diclofenac sodium 1 % Gel 2 g TOPICAL QID PRN (Reason: Pain) RF: 0 loratadine 10 mg Capsule 10 mg PO DAILY RF: 0 omeprazole 20 mg Capsule,Delayed Release(Dr/Ec) 20 mg PO QAM RF: 0 solifenacin [Vesicare] 5 mg Tablet 5 mg PO QAM RF: 0 Pride-3 (with dpa) 1,050-1,200 mg Capsule 1 cap PO QAM RF: 0 latanoprost 0.005 % Drops 1 drp OPB PM RF: 0 albuterol sulfate [ProAir HFA] 90 mcg/actuation Hfa Aerosol Inhaler 1 puff INHALATION Q6H PRN (Reason: Shortness Of Breath) RF: 0 phenylephrine HCl 10 mg Tablet 10 mg PO Q6H PRN (Reason: Nasal Congestion) RF: 0 PreserVision AREDS-2 [id number] Capsule 1 tab PO BID RF: 0 aspirin [Ecotrin Low Strength] 81 mg Tablet,Delayed Release (Dr/Ec) 81 mg PO BID 28 Days Qty: 56 RF: 0 sennosides [Senokot] 8.6 mg Tablet 17.2 mg PO HS PRN (Reason: constipation) Qty: 28 RF: 0 multivitamin Tablet 1 tab PO BID RF: 0 meclizine 25 mg Tablet 25 mg PO DAILY PRN (Reason: Dizziness) RF: 0 diphenhydramine HCl [Benadryl] 25 mg Capsule 25 mg PO DIRECTED PRN (Reason: Sleep) RF: 0 Complex B-50 115-50-0.4 mg Tablet Extended Release 1 tab PO QAM RF: 0 acetaminophen [Tylenol Extra Strength] 500 mg tablet 500 - 1,000 mg PO Q8 PRN (Reason: pain and/or fever) RF: 0 Discontinued tramadol 50 mg Tablet 50 mg PO Q6H PRN (Reason: Pain) RF: 0 Discharge Orders: Discharge Order (Routine); Ordered 09/18/19 Ordered By: Jacinto Rivera Admission Data Admit Date/Time: 09/07/19 01:28 Attending Provider: Jacinto Rivera Admit Provider: Madan Cabrera Primary Care Provider: Alberto Adames Other Providers: Madan Cabrera ; Zack Hart ; Nataly Alford ; Raúl Cerrato
--- NOTE | 2019-09-18 13:18 | Communication Note ---
Date of Service: September 18, 2019 Physician at [facility] given report by phone.
[2019-09-18] MEDS: TRAMADOL HCL 50 MG TABLET PO PRN (13:39)
== END 2019-09-18 14:52 | DRG 467 ==
LOC: ED 23:09 → 3N 09-07 01:28 → SUATTDRO 09-07 01:28 → 3N 09-07 01:51

== ENCOUNTER 2019-09-21 14:57 | Observation (INO) ==
[2019-09-21] MEDS ORDERED: fentaNYL citrate 100 MCG/2 ML VIAL IV STA (15:13)
[2019-09-21] MEDS ORDERED: ONDANSETRON INJ 2 MG/ML 2 ML VIAL IV STA (15:13)
[2019-09-21 16:09] LABS: Basophils # (auto) 0.04 K/uL (0-0.2); Basophils % (auto) 0.6 %; Eosinophils # (auto) 0.14 K/uL (0-0.5); Hematocrit (blood only) 26.8 % (37-47); Hemoglobin 8.4 g/dL (12.0-16.0); Immature Granulocytes # (auto) 0.09 K/uL (0.00-0.02); Immature Granulocytes % (auto) 1.3 %; Lymphocytes % (auto) 23.8 %; Mean Corpuscular Hemoglobin 33.5 pg (25-34); Mean Corpuscular Hgb Conc 31.3 g/dL (32-36); Mean Corpuscular Volume 106.8 fL (80-100); Mean Platelet Volume 9.9 fL (7.4-10.4); Monocytes # (auto) 0.85 K/uL (0.11-0.59); Monocytes % (auto) 11.9 %; Neutrophils # (auto) 4.32 K/uL (1.4-6.5); Neutrophils % (auto) 60.4 %; Platelet Count 437 K/uL (130-400); RDW Coefficient of Variation 21.2 % (11.5-14.5); RDW Standard Deviation 77.9 fL (36.4-46.3); Red Blood Count 2.51 M/uL (4.2-5.4); White Blood Count 7.14 K/uL (4.8-10.8)
[2019-09-21 16:16] LABS: BUN Creatinine Ratio 14.8 (10-20); Calcium 9.1 mg/dl (8.5-10.1); Creatinine Clr Calc Pharmacy 51.1 ml/min; Est GFR (African American) 92.1; Est GFR (Non-African American) 79.4; Potassium 3.6 mmol/L (3.5-5.1)
[2019-09-21 16:18] LABS: INR 1.1 (0.9-1.1); Prothrombin Time 10.9 Seconds (9.0-12.0)
[2019-09-21 16:30] LABS: Ovalocytes 1+; Polychromasia 1+
--- NOTE | 2019-09-21 16:35 | XRay Report ---
XR pelvis 1-2V routine CLINICAL HISTORY: acute leg fracture, s/p surg trauma COMPARISON: 09/09/2019 DISCUSSION: The bones and joint spaces appear intact. There is no evidence of fracture, dislocation o r bony disease. Anatomic alignment posttotal right hip arthroplasty. Circumferential wires traversing the proximal femoral shaft. No major change compared to the prior study. IMPRESSION: No change in alignment post total right hip arthroplasty and circumferential wire placeme nt through a fracture of the proximal femur. The above report was generated using voice recognition software. It may contain grammatical, syntax or spelling errors. Electronically signed by: Chip Feliz M.D. 09/21/2019 4:34 PM
[2019-09-21] MEDS ORDERED: fentaNYL citrate 100 MCG/2 ML VIAL IV PRN (16:37)
--- NOTE | 2019-09-21 16:53 | XRay Report ---
XR chest 1V portable CLINICAL HISTORY: acute leg fracture, s/p surg pain COMPARISON STUDY: No previous studies for comparison. FINDINGS: The bones soft tissues and hemidiaphragms are normal. The cardiomediastinal silhouette is n ormal. The lungs are clear. The pulmonary vasculature is normal. IMPRESSION: Negative chest. The above report was generated using voice recognition software. It may contain grammatical, syntax or spelling errors. Electronically signed by: Chip Feliz M.D. 09/21/2019 4:51 PM
--- NOTE | 2019-09-21 16:54 | XRay Report ---
XR femur RT 2V routine CLINICAL HISTORY: acute leg fracture, s/p surg postoperative COMPARISON: None. DISCUSSION: Placement of longstem right femoral prosthetic. Total hip arthroplasty good position. Cir cumferential wires traversing a proximal femoral shaft fracture. Additional oblique fracture is noted mid femoral shaft immediately distal to the femoral prosthetic. There is no evidence for soft tissue swelling. IMPRESSION: Oblique fracture distal to a long stem femoral prosthetic at the level of the mid femoral shaft. Total right hip arthroplasty with a unchanged oblique fracture of the proximal femoral shaft. The above report was generated using voice recognition software. It may contain grammatical, syntax or spelling errors. Electronically signed by: Chip Feliz M.D. 09/21/2019 4:53 PM
[2019-09-21 17:45] LABS: Appearance Urine Clear (Clear); Bilirubin Urine Negative (Negative); Blood Urine Negative (Negative); Color Urine Yellow; Glucose Urine UA Negative (Negative); Ketones Urine Negative (Negative); Leukocyte Esterase Urine Negative (Negative); Nitrite Urine Negative (Negative); Protein Urine Negative (Negative); Specific Gravity Urine 1.009 (1.000-1.030); Urobilinogen Urine Negative (Negative)
--- NOTE | 2019-09-21 18:46 | Emergency Department Note ---
Entered by Stephany Cisneros acting as a scribe for ED Provider Note Name: RAOUL DIXON Age: 88 Arrives Via: Ambulance Informant: Patient, EMS CC: Hip pain HPI: 88F arrives from [facility] for evaluation of hip pain. EMS reports right hip replacement 1 month following fracture around hip prosthesis. She had a recent replacement of hip prosthesis recently and was otherwise doing well until thigh pain today. EMS states she had a spontaneous hip fracture today. The patient explains that she was getting into her wheelchair heading for breakfast when she began to experience right hip pain. Her pain is alleviated when she bends her right knee. She was given Tramadol and Tylenol for relief today. Of note, the patient is a Druze and cannot receive blood transfusions. The patient denies fever, chills, nausea, vomiting, abdominal pain, shortness of breath, chest pain, unusual rashes, knee pain, fall, head injury, and history of broken bones. ROS: See above HPI for pertinent positives & negatives. A total of 10 systems reviewed and were otherwise negative. Past Medical History:degenerative joint disease of right hip, acute anemia, essential HTN, CHF, and other relevant medical problems as per [employer] Past Surgical History:See Below Family History:See Below Social History:Druze, non-smoker Home Medications:See Below Allergies:bee venom, estrogens, ferrous sulfate, oxycodone, sulfa, adhesive, MADSEN Vitals:BP 179/75 Pulse 80 Resp 12 Temp 36.7 C O2 Sat 97 Delivery RA Physical Exam: GENERAL: Patient is uncomfortable appearing and in moderate distress. EYES: No scleral icterus, unremarkable pupils. Pale conjunctiva. ENT: Mucous membranes moist, no nasal congestion. NECK: No masses appreciated, nomeningismus, trachea is midline. RESPIRATORY: No dyspnea. Clear to auscultation and equal bilaterally. No wheeze, no rhonchi. CARDIOVASCULAR: Regular rate and rhythm.No murmurs, rubs, gallops appreciated. GASTROINTESTINAL: Abdomen soft, non-tender, no peritonitis.Bowel sounds positive.No masses appreciated. BACK: No midline tenderness, no CVA tenderness EXTREMITIES: Normal motion all extremities, no cyanosis. No swelling of lateral right thigh. Severe pain with ROM of right hip and right knee. Distal pulses sen sation and movement intact. NEUROLOGIC: Alert and oriented, no acute motor or sensory deficits, no focal weakness, cranial nerves grossly intact. SKIN: No rash, no jaundice, no diaphoresis. ED Course: Prior Medical Record, Triage/Nursing Notes, Medications, Allergies reviewed by Me Vital Signs: reviewed and remarkable for no significant abnormalities Labs:Reviewed and remarkable for anemia Interventions: saline lock, fentanyl 50mcg IV, Zofran 4mg IV Imaging: XR femur RT 2V routine CLINICAL HISTORY: acute leg fracture, s/p surg postoperative COMPARISON: None. DISCUSSION: Placement of longstem right femoral prosthetic. Total hip arthroplasty good position. Circumferential wires traversing a proximal femoral shaft fracture. Additional oblique fracture is noted mid femoral shaft immediately distal to the femoral prosthetic. There is no evidence for soft tissue swelling. IMPRESSION: Oblique fracture distal to a long stem femoral prosthetic at the level of the mid femoral shaft. Total right hip arthroplasty with a unchanged oblique fracture of the proximal femoral shaft. The above report was generated using voice recognition software. It may contain grammatical, syntax or spelling errors. Electronically signed by: Chip Feliz M.D. 09/21/2019 4:53 PM XR pelvis 1-2V routine CLINICAL HISTORY: acute leg fracture, s/p surg trauma COMPARISON: 09/09/2019 DISCUSSION: The bones and joint spaces appear intact. There is no evidence of fracture, dislocation or bony disease. Anatomic alignment posttotal right hip arthroplasty. Circumferential wires traversing the proximal femoral shaft. No major change compared to the prior study. IMPRESSION: No change in alignment post total right hip arthroplasty and circumferential wire placement through a fracture of the proximal femur. The above report was generated using voice recognition software. It may contain grammatical, syntax or spelling errors. Electronically signed by: Chip Feliz M.D. 09/21/2019 4:34 PM XR chest 1V portable CLINICAL HISTORY: acute leg fracture, s/p surg pain COMPARISON STUDY: No previous studies for comparison. FINDINGS: The bones soft tissues and hemidiaphragms are normal. The cardiomediastinal silhouette is normal. The lungs are clear. The pulmonary vasculature is normal. IMPRESSION: Negative chest. The above report was generated using voice recognition software. It may contain grammatical, syntax or spelling errors. Electronically signed by: Chip Feliz M.D. 09/21/2019 4:51 PM Reassessments/Times: * 1532: Paged Dr. Blackburn to discuss patient's plan of care * 1557: Dr. Blackburn advises to admit the patient to Medicine * 1608: Paged [facility] Hospitalist * 1619: Spoke with Dr. Hart who advises to transfer the patient to a trauma center * 1637: I had a prolonged discussion with the patient and her family. They are unsure where they want her to be transferred to. * 1749: I paged [facility] for transfer after Dr. Hart had prolonged discussion with the family over risks and benefits. * 1809: I spoke to Dr. Olguin, [facility] Transfer Physician who accepts pt for transfer pending their orthopedic surgeon's input * 1818: Got a call back from the [facility]. They state there are no beds and they will not have one until possibly tomorrow afternoon. They cannot take her in ER. * 1828: After a prolonged discussion with the patient and her family, they still cannot decided where they want her to go. * 1837: The patient decided to stay here and will await transfer tomorrow. [facility] Hospitalist has been paged. * 1845: Spoke with [facility] who will not accept the patient now due to required ortho to ortho discussion. I supplied them with the phone numb er for Wendy chan and [facility] still states that the patient should stay here. * 1850: I had a prolonged discussion with Dr. Faulkner, [facility] Hospitalist who feels that the patient does not belong on medical service. I asked him to decided whether to admit to him or the ortho surgeon and they will discuss the case. * 1908: I had another prolonged discussion with the patient about transfer plan and risk. I discussed both on the phone with family member as well as rest of family about everything. She consented to transfer. * 190: Discussed again with Dr. Faulkner who will go evaluate pt. * 192: Dr. Hart discussed case with [facility] Tristan who agreed pt should be transferred there when a bed becomes available. Relayed message from [facility] Nephrology who advised EPO for patient. * 192: Spoke to the [facility] again asking me to speak with the [facility] hospitalist. I called the hospitalist and there was no answer. * 1939: I discussed the case with Dr. Hays, [facility] Hospitalist who accepts transfer to med surg. * 1949: I had a further discussion with Dr. Faulkner and made him aware of Sagar's plan and requests. Blood pressure:Normal.No Referral necessary Disposition:Hospitalization Differentials:Etiologies such as fracture, dislocation, neurovascular compromise, compartment syndrome, soft tissue injury amongst other pathologies. Medical Decision Makin yr old Harvinder's Witness arrives with acute right mid thigh pain after simple transfer from bed to wheel chair today. She had right hip replacement 4 weeks ago complicated by non-traumatic angus-prosthetic fracture 2 weeks ago requiring surgery. During that time she became profoundly anemic post op but tolerated it already. Sadly today she is found to have non-traumatic femur fracture from distal stem prosthesis running oblique down femur. She is quite comfortable with staying still after IV fentanyl and some zofran for nausea. She was not given IV fluids as BP alright and known anemia. HgB today 8.4 which is modestly better than 6 two weeks ago. I will note I spent an exhorbinant amount of time discussing case with many different providers trying to determine disposition. Finally plan will be admit here with transfer to [facility] tomorrow once bed opens up so that Ortho Trauma can be involved in this complex post operative patient. Meanwhile medicine here will try optimizing her medical management prior to any operation. Family, and many physicians on board with this plan. Impression: Mid-shaft right femur fracture, closed Anemia Osteoporosis The scribe's documentation has been prepared under my direction and personally reviewed by me in its entirety. I confirm that the note above accurately reflects all work, treatment, procedures, and medical decision making performed by me. Isauro Peerz MD Impression & Plan Closed fracture of femur, shaft, Anemia, Osteoporosis Past Med/Surg History Medical History Congestive heart failure with left ventricular diastolic dysfunction (Chronic) Dyslipidemia (Chronic) Essential hypertension (Chronic) GERD (gastroesophageal reflux disease) controlled Glaucoma (Chronic) Hearing deficit History of bronchitis inhaler PRN Hx of deep venous thrombosis LLE DVT post-op hysterectomy (1977) Obesity Osteoarthritis Refusal of blood transfusions as patient is Druze (Chronic) Urinary frequency + urgency Surgical History History of colonoscopy History of cystocele rectocele, and vaginal surgery History of esophagogastroduodenoscopy (EGD) History of total left knee replacement History of total right hip replacement History of total right knee replacement Hx of total hysterectomy Family History Other FHx: cancer Social History Preferred Language: Nicaraguan Communication Ability: Effective 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 Beliefs That Will Affect Care: Christian Christian Beliefs: Preston Witness: no blood products Current Living Situation: Rehab Current Living Situation Comment: at [facility] for rehab d/t hip surgery Other Information That Helps Us Care for You: No Feels Safe at Home: Yes Safety Concerns: Feels Safe At This Time Smoking Status: Never smoker Second Hand Exposure: No ; Hx Alcohol Use: No Hx Substance Use: No Results & Data Vital Signs Vital Signs - 24 hr 09/21/19 15:24 09/21/19 16:54 09/21/19 17:10 Temperature 36.7 C Temperature Source Oral Pulse Rate 80 Pulse Rate [Finger] 80 83 81 Respiratory Rate 12 16 18 Respiratory Effort / Characteristics Non-Labored Non-Labored Respiratory Depth Normal Normal Blood Pressure 179/75 H Blood Pressure [Right Arm] 179/75 H 165/92 H 145/90 H Blood Pressure Mean 109 Blood Pressure Mean [Right Arm] 109 116 108 Pulse Oximetry 97 96 93 Oxygen Delivery Method Room Air Room Air Room Air Sepsis Recent Fever Within 48 Hours No Sepsis New/Unexplained Change in Mental Status No Sepsis Action Taken by Nursing No Action Required 09/21/19 18:27 09/21/19 19:25 Temperature Temperature Source Pulse Rate Pulse Rate [Finger] 87 89 Respiratory Rate 18 18 Respiratory Effort / Characteristics Non-Labored Non-Labored Respiratory Depth Normal Normal Blood Pressure Blood Pressure [Right Arm] 147/84 H 120/59 L Blood Pressure Mean Blood Pressure Mean [Right Arm] 105 79 Pulse Oximetry 97 97 Oxygen Delivery Method Room Air Room Air Sepsis Recent Fever Within 48 Hours Sepsis New/Unexplained Change in Mental Status Sepsis Action Taken by Nursing Laboratory Data Result diagrams: 09/21/19 21:09 09/21/19 15:44 Lab Results 09/21/19 09/21/19 09/21/19 Range/Units 15:44 15:44 15:44 WBC 7.14 (4.8-10.8) K/uL RBC 2.51 L (4.2-5.4) M/uL Hgb 8.4 L (12.0-16.0) g/dL Hct 26.8 L (37-47) % MCV 106.8 H (80-100) fL MCH 33.5 (25-34) pg MCHC 31.3 L (32-36) g/dL RDW Std Deviation 77.9 H (36.4-46.3) fL RDW Coeff of Brigitte 21.2 H (11.5-14.5) % Plt Count 437 H (130-400) K/uL MPV 9.9 (7.4-10.4) fL Immature Gran % (Auto) 1.3 % Neut % (Auto) 60.4 % Lymph % (Auto) 23.8 % [place] % (Auto) 11.9 % Eos % (Auto) 2.0 % Baso % (Auto) 0.6 % Immature Gran # (Auto) 0.09 H (0.00-0.02) K/uL Neut # (Auto) 4.32 (1.4-6.5) K/uL Lymph # (Auto) 1.70 (1.2-3.4) K/uL [place] # (Auto) 0.85 H (0.11-0.59) K/uL Eos # (Auto) 0.14 (0-0.5) K/uL Baso # (Auto) 0.04 (0-0.2) K/uL Polychromasia 1+ Ovalocytes 1+ PT 10.9 (9.0-12.0) Seconds INR 1.1 (0.9-1.1) Sodium 140 (136-145) mmol/L Potassium 3.6 (3.5-5.1) mmol/L Chloride 108 H (98-107) mmol/L Carbon Dioxide 25 (21-32) mmol/L Anion Gap 7.0 (3-11) BUN 10 (7-18) mg/dl Creatinine 0.66 (0.6-1.2) mg/dl Est Cr Clr Drug Dosing 51.1 ml/min Est GFR ( Amer) 92.1 Est GFR (Non-Af Amer) 79.4 BUN/Creatinine Ratio 14.8 (10-20) Glucose 85 (70-99) mg/dl Calcium 9.1 (8.5-10.1) mg/dl Urine Color Urine Appearance (Clear) Urine pH (4.5-7.5) Ur Specific [place] (1.000-1.030) Urine Protein (Negative) Urine Glucose (UA) (Negative) Urine Ketones (Negative) Urine Blood (Negative) Urine Nitrite (Negative) Urine Bilirubin (Negative) Urine Urobilinogen (Negative) Ur Leukocyte Esterase (Negative) 09/21/19 Range/Units 17:30 WBC (4.8-10.8) K/uL RBC (4.2-5.4) M/uL Hgb (12.0-16.0) g/dL Hct (37-47) % MCV (80-100) fL MCH (25-34) pg MCHC (32-36) g/dL RDW Std Deviation (36.4-46.3) fL RDW Coeff of Brigitte (11.5-14.5) % Plt Count (130-400) K/uL MPV (7.4-10.4) fL Immature Gran % (Auto) % Neut % (Auto) % Lymph % (Auto) % [place] % (Auto) % Eos % (Auto) % Baso % (Auto) % Immature Gran # (Auto) (0.00-0.02) K/uL Neut # (Auto) (1.4-6.5) K/uL Lymph # (Auto) (1.2-3.4) K/uL [place] # (Auto) (0.11-0.59) K/uL Eos # (Auto) (0-0.5) K/uL Baso # (Auto) (0-0.2) K/uL Polychromasia Ovalocytes PT (9.0-12.0) Seconds INR (0.9-1.1) Sodium (136-145) mmol/L Potassium (3.5-5.1) mmol/L Chloride (98-107) mmol/L Carbon Dioxide (21-32) mmol/L Anion Gap (3-11) BUN (7-18) mg/dl Creatinine (0.6-1.2) mg/dl Est Cr Clr Drug Dosing ml/min Est GFR ( Amer) Est GFR (Non-Af Amer) BUN/Creatinine Ratio (10-20) Glucose (70-99) mg/dl Calcium (8.5-10.1) mg/dl Urine Color Yellow Urine Appearance Clear (Clear) Urine pH 7.0 (4.5-7.5) Ur Specific [place] 1.009 (1.000-1.030) Urine Protein Negative (Negative) Urine Glucose (UA) Negative (Negative) Urine Ketones Negative (Negative) Urine Blood Negative (Negative) Urine Nitrite Negative (Negative) Urine Bilirubin Negative (Negative) Urine Urobilinogen Negative (Negative) Ur Leukocyte Esterase Negative (Negative) Administered Medications Discontinued Medications Fentanyl Citrate (Fentanyl Citrate) 50 mcg IV NOW STA Stop: 09/21/19 15:14 Last Admin: 09/21/19 15:48 Dose: 50 mcg Documented by: [id number] Fentanyl Citrate (Fentanyl Citrate) 50 mcg IV Q15M PRN PRN Reason: Pain Stop: 10/05/19 16:36 Last Admin: 09/21/19 17:10 Dose: 50 mcg Documented by: [id number] Ondansetron HCl (Zofran) 4 mg IV NOW STA Stop: 09/21/19 15:14 Last Admin: 09/21/19 15:48 Dose: 4 mg Documented by: [id number] Discharge Plan Visit Data *Final* Discharge Date/Time: 09/21/19 20:34 Chief Complaint: Hip Pain Stated Complaint: LEG PAIN/FX ED Provider: Isauro Perez Discharge Problem: Closed fracture of femur, shaft, Anemia, Osteoporosis Patient Disposition: Admitted As Inpatient Discharge Instructions Interventions: ED Discharge Assessment Last Done: 09/21/19 20:34 Discharge Problem: Closed fracture of femur, shaft Qualifiers: Encounter type: initial encounter Fracture morphology: unspecified fracture morphology Laterality: right Qualified Code(s): S72.301A - Unspecified fracture of shaft of right femur, initial encounter for closed fracture Anemia Qualifiers: Anemia type: other cause Other causes of anemia: acute posthemorrhagic Qualified Code(s): D62 - Acute posthemorrhagic anemia Osteoporosis Qualifiers: Osteoporosis type: age-related Presence of current pathological fracture: with current pathological fracture Encounter type: initial encounter Qualified Code(s): M80.00XA - Age-related osteoporosis with current pathological fracture, unspecified site, initial encounter for fracture The scribe's documentation has been prepared under my direction and personally reviewed by me in its entirety. I confirm that the note above accurately reflects all work, treatment, procedures, and medical decision making performed by me.
--- NOTE | 2019-09-21 20:00 | History & Physical Report ---
Date of Service September 21, 2019 Assessment & Plan (1) Closed fracture of femur, shaft: Status post right total hip arthroplasty on 08/23/2019 Spontaneous periprosthetic fracture which was repaired on 09/09/2019 Today she comes with spontaneous right femur fracture Orthopedic surgeon Dr. Hart was consulted who arranged transfer of this patient to [facility] for further care The patient will be transferred to [facility] tomorrow under the care of the hospitalist Dr. Del Valle In the meantime pain control and monitor H&H (2) Acute anemia: Hemoglobin is 8.4 today She received iron transfusion during her recent admission to the hospital Also received Epo from the processing analyst as per the daughter We will monitor H&H while in the hospital (3) Refusal of blood transfusions as patient is Advent: She will not get any blood transfusion or any blood products transfusion Received iron and will not repeated We will monitor H&H (4) Congestive heart failure with left ventricular diastolic dysfunction: Compensated CHF Has not been on any diuretics (5) Essential hypertension: We will continue current blood pressure medications (6) Glaucoma: Continue current medications for glaucoma DVT prophylaxis SCDs CODE STATUS Full History of Present Illness Chief Complaint: Right leg pain with spontaneous fracture of right femur Primary Care Provider: Alberto Adames DO She is an 88-year-old female with significant complicated past medical history as mentioned below and to mention specifically status post right hip arth roplasty on 23 August, atraumatic pain right hip following that and underwent revision of right total hip arthroplasty on of this month and today she suffered spontaneous fracture of the right femur and was brought into the emergency room. At around 9 AM this morning she was getting into her wheelchair and was heading for breakfast when she began to experience right hip pain. She received an additional pain medications in the rehab facility and was seen by the rehab doctor and advised portable x-ray which showed that she has a new fracture involving the right femur from that point she was brought to the emergency room for further evaluation. Besides pain in the right leg she does not have any other symptoms. She denies any chest pain, palpitation, shortness of breath, any abdominal pain, nausea and/or vomiting, any problem with her urine and her bowel habit, any numbness or tingling involving any of the extremities. She was evaluated in the ER by orthopedic surgeon for possible transfer to [facility] for further management of her fracture. The latest I got from the ER physician that she has been accepted to the hospitalist service under Dr. Del Valle and she will be transferred to [facility] tomorrow. Allergies Allergy/AdvReac Type Severity Reaction Status Date / Time bee venom protein (honey bee) Allergy Intermediate SWELLING Verified 09/06/19 23:48 estrogens, conjugated Allergy Intermediate SWELLING Verified 09/06/19 23:48 OF EYES ferrous sulfate Allergy Intermediate SWELLING Verified 09/21/19 17:27 OF EYES oxycodone Allergy Intermediate Hives, Verified 09/06/19 23:48 swelling around eyes. Sulfa (Sulfonamide Allergy Intermediate HIVES, Verified 09/06/19 23:48 Antibiotics) SWELLING OF EYES adhesive AdvReac Intermediate SKIN Verified 09/06/19 23:48 IRRITATION-REDNESS, ITCHING MADSEN Allergy Intermediate Hives Uncoded 09/06/19 23:48 Home Medications Home Medications Medication Instructions Recorded Confirmed Type [place]-3 (with dpa) 1 cap PO QAM 06/28/19 09/21/19 History PreserVision AREDS-2 1 tab PO BID 06/28/19 09/21/19 History albuterol sulfate [ProAir HFA] 1 puff INHALATION Q6H PRN 06/28/19 09/21/19 History calcium carbonate-vitamin D3 1 cap PO QAM 06/28/19 09/21/19 History [Calcium 600 with Vitamin D3] carvedilol 3.125 mg PO BIDM 06/28/19 09/21/19 History diclofenac sodium 2 g TOPICAL QID PRN 06/28/19 09/21/19 History latanoprost 1 drp OPB PM 06/28/19 09/21/19 History loratadine 10 mg PO DAILY 06/28/19 09/21/19 History omeprazole 20 mg PO QAM 06/28/19 09/21/19 History phenylephrine HCl 10 mg PO Q6H PRN 06/28/19 09/21/19 History solifenacin [Vesicare] 5 mg PO QAM 06/28/19 09/21/19 History sennosides [Senokot] 17.2 mg PO HS PRN #28 tab 08/24/19 09/21/19 Rx Complex B-50 1 tab PO QAM 09/06/19 09/21/19 History acetaminophen [Tylenol Extra 500 - 1,000 mg PO Q8 PRN 09/06/19 09/21/19 History Strength] diphenhydramine HCl [Benadryl] 25 mg PO DIRECTED PRN 09/06/19 09/21/19 History meclizine 25 mg PO DAILY PRN 09/06/19 09/21/19 History multivitamin 1 tab PO BID 09/06/19 09/21/19 History tramadol 50 mg PO Q6H PRN 09/21/19 09/21/19 History Past Med/Surg History Medical History (Updated 09/21/19 @ 16:46 by Stephany Cisneros) Congestive heart failure with left ventricular diastolic dysfunction (Chronic) Dyslipidemia (Chronic) Essential hypertension (Chronic) GERD (gastroesophageal reflux disease) controlled Glaucoma (Chronic) Hearing deficit History of bronchitis inhaler PRN Hx of deep venous thrombosis LLE DVT post-op hysterectomy (1977) Obesity Osteoarthritis Refusal of blood transfusions as patient is Advent (Chronic) Urinary frequency + urgency Surgical History History of colonoscopy History of cystocele rectocele, and vaginal surgery History of esophagogastroduodenoscopy (EGD) History of total left knee replacement History of total right hip replacement History of total right knee replacement Hx of total hysterectomy Social History Preferred Language: Malian Communication Ability: Effective 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 Maintenance Required: No Beliefs That Will Affect Care: Buddhism Buddhism Beliefs: jehovah witness-no blood Current Living Situation: Alone Feels Safe at Home: Yes Smoking Status: Never smoker Second Hand Exposure: No ; Hx Alcohol Use: No Hx Substance Use: No Review of Systems Review of Systems: All systems reviewed & are unremarkable except as noted in HPI & below Physical Exam Physical Exam: Lying in bed comfortably without any acute distress but looks pale Constitutional: well developed, well nourished and + ill appearing; no acute distress Eyes: PERRL, conjunctivae normal, anicteric sclerae ENMT: external ear and nose normal, oropharynx normal Neck: trachea midline, no thyromegaly Respiratory: normal respiratory effort; no respiratory distress Auscultatio n: lungs clear to auscultation bilaterally Cardiovascular: Rate/Rhythm: regular rate and regular rhythm Heart Sounds: + murmur (1/6 to 2/6 ESM over precordium) Gastrointestinal (Abdomen): Inspection/Auscultation: abdomen normal to inspection and normal bowel sounds Percussion/Palpation: abdomen soft; abdomen nontender Musculoskeletal: Any movement of the right lower extremity causes pain in the right leg and thigh Neurologic: Alert, awake and oriented x3 Psychiatric: A+Ox3, euthymic affect Lymphatic: no cervical or axillary lymphadenopathy Results & Data Vital Signs (Past 12 Hours) Vital Signs Temp Pulse Pulse Resp BP BP Pulse Ox 09/21/19 19:25 89 18 120/59 L 97 09/21/19 18:27 87 18 147/84 H 97 09/21/19 17:10 81 18 145/90 H 93 09/21/19 16:54 83 16 165/92 H 96 09/21/19 15:24 36.7 C 80 80 12 179/75 H 179/75 H 97 Laboratory Results Short CBC 09/21/19 Range/Units 15:44 WBC 7.14 (4.8-10.8) K/uL Hgb 8.4 L (12.0-16.0) g/dL Hct 26.8 L (37-47) % Plt Count 437 H (130-400) K/uL BMP 09/21/19 15:44 Sodium 140 Potassium 3.6 Chloride 108 H Carbon Dioxide 25 BUN 10 Creatinine 0.66 Glucose 85 Calcium 9.1 Urine 09/21/19 Range/Units 17:30 Urine Color Yellow Urine Appearance Clear (Clear) Urine pH 7.0 (4.5-7.5) Ur Specific North 1.009 (1.000-1.030) Urine Protein Negative (Negative) Urine Glucose (UA) Negative (Negative) Code Status & VTE Plan VTE Prophylaxis Plan VTE Prophylaxis will be ordered: Yes (1) Closed fracture of femur, shaft Encounter type: initial encounter Fracture morphology: unspecified fracture morphology Laterality: right Qualified Code(s): S72.301A - Unspecified fracture of shaft of right femur, initial encounter for closed fracture
[2019-09-21] MEDS ORDERED: NON-FORMULARY MEDICATION (Vit C,E-Zn-Coppr-Lutein-Zeaxan [Preservision Areds-2] 1 TAB) PO SCH (21:03)
[2019-09-21] MEDS ORDERED: SENNA 8.6 MG TAB PO PRN (21:03)
[2019-09-21] MEDS ORDERED: PHENYLEPHRINE HCL 10 MG PO PRN (21:03)
[2019-09-21] MEDS ORDERED: LATANOPROST 0.005% OP SOLN 2.5 ML BTL OPB SCH (21:03)
[2019-09-21] MEDS ORDERED: ACETAMINOPHEN 500 MG TAB PO PRN (21:03)
[2019-09-21] MEDS ORDERED: MECLIZINE HCL 25 MG TAB PO PRN (21:21)
[2019-09-21 21:26] LABS: Hematocrit (blood only) 28.3 % (37-47); Hemoglobin 8.7 g/dL (12.0-16.0)
--- NOTE | 2019-09-21 21:31 | Orthopedic Consultation ---
Date of Consultation September 21, 2019 Assessment & Plan (1) [place]-prosthetic femur fracture at tip of prosthesis: I had a long in-depth conversation with the patient and family who was present at bedside in regards to the new periprosthetic fracture distal to the tip of the femoral prosthesis. The patient's injury would require surgical fixation including open reduction internal fixation and possibly revision of the femoral prosthesis. At this time the proximal femur periprosthetic fracture and stem appear to be well fixed however if found to be unstable intraoperatively this would result in a significantly more involved surgery revising the [place] to a longer stemmed femoral prosthesis. This would ultimately result in increased risk for further blood loss. The patient is very high risk secondary to multiple factors including age, osteoporosis, yazidi believesJehovah's Witness, multiple recent surgeries and postoperative anemia. Several factors were discussed which ultimately led to the decision to have the patient transferred to tertiary care center at this time. Currently orthopedic implants for this case would need to be sent in and pending OR availability would result in surgical delay. Furthermore due to the patient's multiple risk factors and the level of perioperative acuity it was the preference of the patient's family and myself to have the patient transferred to tertiary care center. The case was discussed with the orthopedic surgeon magnetic resonance imaging coordinator at [facility], Dr Cohen who was willing to accept the care for the patient on behalf of Dr. Banegas and Dr. Acuna for further treatment of the patient's periprosthetic fracture. Thank you for the consultation. History of Present Illness Reason for Consultation: Right femur periprosthetic fracture Attending Physician: Josue Faulkner MD History of Present Illness The patient is an 88-year-old female, Christian, who has recent surgical history for right total hip arthroplasty performed on 08/23/2019. Post- operatively the patient sustained a right proximal femur periprosthetic fracture on 09/07/2019. Due to orthopedic implant and OR availability the patient underwent revision right total hip arthroplasty with ORIF of right proximal femur on 09/09/2019. With the exception of acute postop anemia and prolonged hospital stay the patient tolerated the procedure well and was discharge to rehab facility on 09/18/2019. Today while transferring to her wheelchair the patient admits to increasing pain to her right lower extremity. The patient denies any trauma however there is question to adherence to weightbearing restrictions while in the rehab facility. Due to increasing pain to her right lower extremity and inability to ambulate she was seen in [facility] emergency department. X-rays taken demonstrated a midshaft periprosthetic femur fracture distal to the tip of the right femoral prosthesis. The patient denies any numbness or tingling to her right lower extremity or any associated injuries Allergies Allergy/AdvReac Type Severity Reaction Status Date / Time bee venom protein (honey bee) Allergy Intermediate SWELLING Verified 09/06/19 23:48 estrogens, conjugated Allergy Intermediate SWELLING Verified 09/06/19 23:48 OF EYES ferrous sulfate Allergy Intermediate SWELLING Verified 09/21/19 17:27 OF EYES oxycodone Allergy Intermediate Hives, Verified 09/06/19 23:48 swelling around eyes. Sulfa (Sulfonamide Allergy Intermediate HIVES, Verified 09/06/19 23:48 Antibiotics) SWELLING OF EYES adhesive AdvReac Intermediate SKIN Verified 09/06/19 23:48 IRRITATION-REDNESS, ITCHING MADSEN Allergy Intermediate Hives Uncoded 09/06/19 23:48 Home Medications Home Medications Medication Instructions Recorded Confirmed Type [place]-3 (with dpa) 1 cap PO QAM 06/28/19 09/21/19 History PreserVision AREDS-2 1 tab PO BID 06/28/19 09/21/19 History albuterol sulfate [ProAir HFA] 1 puff INHALATION Q6H PRN 06/28/19 09/21/19 History calcium carbonate-vitamin D3 1 cap PO QAM 06/28/19 09/21/19 History [Calcium 600 with Vitamin D3] carvedilol 3.125 mg PO BIDM 06/28/19 09/21/19 History diclofenac sodium 2 g TOPICAL QID PRN 06/28/19 09/21/19 History latanoprost 1 drp OPB PM 06/28/19 09/21/19 History loratadine 10 mg PO DAILY 06/28/19 09/21/19 History omeprazole 20 mg PO QAM 06/28/19 09/21/19 History phenylephrine HCl 10 mg PO Q6H PRN 06/28/19 09/21/19 History solifenacin [Vesicare] 5 mg PO QAM 06/28/19 09/21/19 History sennosides [Senokot] 17.2 mg PO HS PRN #28 tab 08/24/19 09/21/19 Rx Complex B-50 1 tab PO QAM 09/06/19 09/21/19 History acetaminophen [Tylenol Extra 500 - 1,000 mg PO Q8 PRN 09/06/19 09/21/19 History Strength] diphenhydramine HCl [Benadryl] 25 mg PO DIRECTED PRN 09/06/19 09/21/19 History meclizine 25 mg PO DAILY PRN 09/06/19 09/21/19 History multivitamin 1 tab PO BID 09/06/19 09/21/19 History tramadol 50 mg PO Q6H PRN 09/21/19 09/21/19 History Patient History Medical History Congestive heart failure with left ventricular diastolic dysfunction (Chronic) Dyslipidemia (Chronic) Essential hypertension (Chronic) GERD (gastroesophageal reflux disease) controlled Glaucoma (Chronic) Hearing deficit History of bronchitis inhaler PRN Hx of deep venous thrombosis LLE DVT post-op hysterectomy (1977) Obesity Osteoarthritis Refusal of blood transfusions as patient is Christian (Chronic) Urinary frequency + urgency Surgical History History of colonoscopy History of cystocele rectocele, and vaginal surgery History of esophagogastroduodenoscopy (EGD) History of total left knee replacement History of total right hip replacement History of total right knee replacement Hx of total hysterectomy Family History Other FHx: cancer Social History Preferred Language: Senegalese Communication Ability: Effective Financial Economist Required: No Beliefs That Will Affect Care: Congregation Congregation Beliefs: Jehovah Witness: no blood products Current Living Situation: Rehab Current Living Situation Comment: at [facility] for rehab d/t hip surgery Other Information That Helps Us Care for You: No Feels Safe at Home: Yes Safety Concerns: Feels Safe At This Time Smoking Status: Never smoker Second Hand Exposure: No ; Hx Alcohol Use: No Hx Substance Use: No Review of Systems Review of Systems: All systems reviewed & are unremarkable except as noted in HPI & below Constitutional: as per Subjective / HPI Physical Exam Physical Exam: RLE NVSI +EHL/FHL/TA/GS SILT grossly, +2 DP pulse, compartments soft, incision cdi. Tenderness to palpationMiddle one third thigh. Constitutional: WD/WN, vitals as above Results & Data Vital Signs (Past 12 Hours) Vital Signs Temp Pulse Pulse Resp BP BP BP 09/21/19 21:04 36.8 C 96 H 18 116/66 09/21/19 20:20 91 H 18 155/59 H 09/21/19 19:25 89 18 120/59 L 09/21/19 18:27 87 18 147/84 H 09/21/19 17:10 81 18 145/90 H 09/21/19 16:54 83 16 165/92 H 09/21/19 15:24 36.7 C 80 80 12 179/75 H 179/75 H Pulse Ox 09/21/19 21:04 95 09/21/19 20:20 97 09/21/19 19:25 97 09/21/19 18:27 97 09/21/19 17:10 93 09/21/19 16:54 96 09/21/19 15:24 97 Diagnostic Findings XR femur RT 2V routine CLINICAL HISTORY: acute leg fracture, s/p surg postoperative COMPARISON: None. DISCUSSION: Placement of longstem right femoral prosthetic. Total hip arthroplasty good position. Circumferential wires traversing a proximal femoral shaft fracture. Additional oblique fracture is noted mid femoral shaft immediately distal to the femoral prosthetic. There is no evidence for soft tissue swelling. IMPRESSION: Oblique fracture distal to a long stem femoral prosthetic at the level of the mid femoral shaft. Total right hip arthroplasty with a unchanged oblique fracture of the proximal femoral shaft.
[2019-09-21] MEDS ORDERED: Nursing to Pharmacy Communication ONE (21:48)
[2019-09-21] MEDS ORDERED: carvediloL 3.125 MG TAB PO SCH (22:00)
[2019-09-21] MEDS ORDERED: ALBUTEROL HFA 8 GM INHALER INH PRN (22:03)
[2019-09-21] MEDS: MULTIVITAMIN TAB PO SCH (22:28)
[2019-09-21] MEDS: TRAMADOL HCL 50 MG TABLET PO PRN (22:56)
[2019-09-22 07:52] LABS: Basophils # (auto) 0.03 K/uL (0-0.2); Basophils % (auto) 0.5 %; Eosinophils # (auto) 0.12 K/uL (0-0.5); Eosinophils % (auto) 1.9 %; Hematocrit (blood only) 24.4 % (37-47); Hemoglobin 7.5 g/dL (12.0-16.0); Immature Granulocytes # (auto) 0.08 K/uL (0.00-0.02); Immature Granulocytes % (auto) 1.2 %; Lymphocytes % (auto) 21.6 %; Mean Corpuscular Hgb Conc 30.7 g/dL (32-36); Mean Corpuscular Volume 107.5 fL (80-100); Mean Platelet Volume 9.3 fL (7.4-10.4); Monocytes # (auto) 0.96 K/uL (0.11-0.59); Monocytes % (auto) 14.8 %; Neutrophils # (auto) 3.88 K/uL (1.4-6.5); Platelet Count 360 K/uL (130-400); RDW Coefficient of Variation 21.2 % (11.5-14.5); RDW Standard Deviation 78.5 fL (36.4-46.3); Red Blood Count 2.27 M/uL (4.2-5.4); White Blood Count 6.47 K/uL (4.8-10.8)
[2019-09-22] MEDS: MULTIVITAMIN TAB PO SCH (08:04)
[2019-09-22] MEDS: carvediloL 3.125 MG TAB PO SCH ×2 (08:05→17:03)
[2019-09-22 08:09] LABS: BUN Creatinine Ratio 17.9 (10-20); Calcium 8.9 mg/dl (8.5-10.1); Creatinine Clr Calc Pharmacy 50.6 ml/min; Est GFR (African American) 92.1; Est GFR (Non-African American) 79.4; Magnesium 1.9 mg/dl (1.8-2.4); Potassium 3.9 mmol/L (3.5-5.1)
[2019-09-22 08:19] LABS: Anisocytosis Present; Polychromasia 2+
[2019-09-22] MEDS ORDERED: LORATADINE 10 MG TAB PO SCH (09:00)
[2019-09-22] MEDS ORDERED: CALCIUM 600MG + VIT D 400 IU TAB PO SCH (09:00)
[2019-09-22] MEDS ORDERED: OMEGA-3 (PURIFIED FISH OIL) 1 GM CAP PO SCH (09:00)
[2019-09-22] MEDS ORDERED: VITAMIN B COMPLEX TAB PO SCH (09:00)
[2019-09-22] MEDS ORDERED: PANTOprazole 40 MG TAB PO SCH (09:00)
--- NOTE | 2019-09-22 17:55 | Discharge Summary ---
Date of Service September 22, 2019 Admission HPI Per Admitting Provider She is an 88-year-old female with significant complicated past medical history as mentioned below and to mention specifically status post right hip arthroplasty on 23 August, atraumatic pain right hip following that and underwent revision of right total hip arthroplasty on of this month and today she suffered spontaneous fracture of the right femur and was brought into the emergency room. At around 9 AM this morning she was getting into her wheelchair and was heading for breakfast when she began to experience right hip pain. She received an additional pain medications in the rehab facility and was seen by the rehab doctor and advised portable x-ray which showed that she has a new fracture involving the right femur from that point she was brought to the emergency room for further evaluation. Besides pain in the right leg she does not have any other symptoms. She denies any chest pain, palpitation, shortness of breath, any abdominal pain, nausea and/or vomiting, any problem with her urine and her bowel habit, any numbness or tingling involving any of the extremities. She was evaluated in the ER by orthopedic surgeon for possible transfer to [place] for further management of her fracture. The latest I got from the ER physician that she has been accepted to the hospitalist service under Dr. Del Valle and she will be transferred to [place] tomorrow. Admission Exam Per Admitting Provider Physical Exam: Lying in bed comfortably without any acute distress but looks pale Constitutional: well developed, well nourished and + ill appearing; no acute distress Eyes: PERRL, conjunctivae normal, anicteric sclerae ENMT: external ear and nose normal, oropharynx normal Neck: trachea midline, no thyromegaly Respiratory: normal respiratory effort; no respiratory distress Auscultation: lungs clear to auscultation bilaterally Cardiovascular: Rate/Rhythm: regular rate and regular rhythm Heart Sounds: + murmur (1/6 to 2/6 ESM over precordium) Gastrointestinal (Abdomen): Inspection/Auscultation: abdomen normal to inspection and normal bowel sounds Percussion/Palpation: abdomen soft; abdomen nontender Musculoskeletal: Any movement of the right lower extremity causes pain in the right leg and thigh Neurologic: Alert, awake and oriented x3 Psychiatric: A+Ox3, euthymic affect Lymphatic: no cervical or axillary lymphadenopathy Principal Diagnosis Right femur fracture Discharge Exam Physical Exam: Elderly female lying in bed in no acute distress, comfortable but looks pale Constitutional: well developed, well nourished and + ill appearing; no acute distress Eyes: PERRL, conjunctivae normal, anicteric sclerae ENMT: external ear and nose normal, oropharynx normal Neck: trachea midline, no thyromegaly Respiratory: normal respiratory effort; no respiratory distress Auscultati on: lungs clear to auscultation bilaterally Cardiovascular: Rate/Rhythm: regular rate and regular rhythm Heart Sounds: + murmur ( 2/6 syst. murmur over precordium) Gastrointestinal (Abdomen): Inspection/Auscultation: abdomen normal to inspection and normal bowel sounds Percussion/Palpation: abdomen soft; abdomen nontender Musculoskeletal: Any movement of the right lower extremity causes pain in the right leg and thigh Neurologic: Alert, awake and oriented x3, moves all 4 extremities spontaneously Psychiatric: A+Ox3, euthymic affect, answers questions appropriately Lymphatic: no cervical or axillary lymphadenopathy Discharge Data Allergies Allergy/AdvReac Type Severity Reaction Status Date / Time bee venom protein (honey bee) Allergy Intermediate SWELLING Verified 09/06/19 23:48 estrogens, conjugated Allergy Intermediate SWELLING Verified 09/06/19 23:48 OF EYES ferrous sulfate Allergy Intermediate SWELLING Verified 09/21/19 17:27 OF EYES oxycodone Allergy Intermediate Hives, Verified 09/06/19 23:48 swelling around eyes. Sulfa (Sulfonamide Allergy Intermediate HIVES, Verified 09/06/19 23:48 Antibiotics) SWELLING OF EYES adhesive AdvReac Intermediate SKIN Verified 09/06/19 23:48 IRRITATION-REDNESS, ITCHING MADSEN Allergy Intermediate Hives Uncoded 09/06/19 23:48 Consultations 09/21/19 18:51 ED Decision to Admit Stat 09/21/19 20:02 Consult Orthopedic Surgery Routine LABS 09/22/19 09/22/19 09/21/19 Range/Units 07:31 07:31 21:09 WBC 6.47 (4.8-10.8) K/uL RBC 2.27 L (4.2-5.4) M/uL Hgb 7.5 L 8.7 L (12.0-16.0) g/dL Hct 24.4 L 28.3 L (37-47) % MCV 107.5 H (80-100) fL MCH 33.0 (25-34) pg MCHC 30.7 L (32-36) g/dL RDW Std Deviation 78.5 H (36.4-46.3) fL RDW Coeff of Brigitte 21.2 H (11.5-14.5) % Plt Count 360 (130-400) K/uL MPV 9.3 (7.4-10.4) fL Immature Gran % (Auto) 1.2 % Neut % (Auto) 60.0 % Lymph % (Auto) 21.6 % Norton % (Auto) 14.8 % Eos % (Auto) 1.9 % Baso % (Auto) 0.5 % Immature Gran # (Auto) 0.08 H (0.00-0.02) K/uL Neut # (Auto) 3.88 (1.4-6.5) K/uL Lymph # (Auto) 1.40 (1.2-3.4) K/uL Norton # (Auto) 0.96 H (0.11-0.59) K/uL Eos # (Auto) 0.12 (0-0.5) K/uL Baso # (Auto) 0.03 (0-0.2) K/uL Polychromasia 2+ Anisocytosis Present Sodium 138 (136-145) mmol/L Potassium 3.9 (3.5-5.1) mmol/L Chloride 106 (98-107) mmol/L Carbon Dioxide 28 (21-32) mmol/L Anion Gap 4.0 (3-11) BUN 12 (7-18) mg/dl Creatinine 0.66 (0.6-1.2) mg/dl Est Cr Clr Drug Dosing 50.6 ml/min Est GFR ( Amer) 92.1 Est GFR (Non-Af Amer) 79.4 BUN/Creatinine Ratio 17.9 (10-20) Glucose 82 (70-99) mg/dl Calcium 8.9 (8.5-10.1) mg/dl Magnesium 1.9 (1.8-2.4) mg/dl Hospital Course (1) Closed fracture of femur, shaft: Status post right total hip arthroplasty on 08/23/2019 Spontaneous periprosthetic fracture which was repaired on 09/09/2019 She presented w/ with spontaneous right femur fracture yesterday (09/21) Orthopedic surgeon Dr. Hart was consulted who arranged transfer of this patient to [place] for further care The patient will be transferred to [place] today under the care of the hospitalist Dr. Del Valle In the meantime pain control and monitor H&H (2) Acute anemia: Hemoglobin is 7.5 today (was greater than 8 yesterday) She received iron transfusion during her recent admission in the hospital Also received Epo from the youth development specialist as per the daughter We will monitor H&H while in the hospital (3) Refusal of blood transfusions as patient is Mu-ism: She will not get any blood transfusion or any blood products transfusion Received iron recently We will monitor H&H (4) Congestive heart failure with left ventricular diastolic dysfunction: Compensated CHF Has not been on any diuretics (5) Essential hypertension: We will continue current blood pressure medications (6) Glaucoma: Continue current medications for glaucoma DVT prophylaxis SCDs CODE STATUS Full Total Time Total Time Spent Total Time Spent (In Minutes): 40 Total Time Includes: Examination of the Patient, Discharge Planning, Medication Reconciliation and Communication With Other Providers Discharge Plan Discharge Items Patient Disposition: Transfer Acute Care Hospital Reason For Visit: FRACTURE OF RIGHT FEMUR Discharge Diagnosis: Fracture of right femur Condition on Discharge: Fair Activity: As commented below Activity Comment: bedrest for now, patient being transferred to [place] ([facility]) Non-emergency contact: Surgeon Call non-emergency contact if: you have any medication questions and your symptoms worsen Follow-up/Referrals: Alberto Adames DO [Primary Care Provider] - Diet: Heart Healthy Add Attending Provider Instructions: Patient with closed fracture of femur, shaft, who is already status post right total hip arthroplasty on August 23, 2019 and spontaneous angus-prosthetic fracture which was repaired on September 09, 2019. She presented yesterday with a spontaneous right femur fracture, and it was discussed with orthopedic surgeon Dr. Hart to transfer patient to [place] for further management, accepting hospitalist at [place] is Dr. Del Valle. Pending Studies at Discharge: No Stand-Alone Forms: [facility] Skilled Items Patient informed of condition?: Yes DNR: No Discharge Level of Care: Other Communicable Disease: No Discharge Prognosis: Other Lines: Peripheral IV Urinary Catheter: Yes Medications and DC Order Prescriptions: Continued calcium carbonate-vitamin D3 [Calcium 600 with Vitamin D3] 600 mg(1,500mg) - 500 unit Capsule 1 cap PO QAM RF: 0 carvedilol 3.125 mg Tablet 3.125 mg PO BIDM RF: 0 diclofenac sodium 1 % Gel 2 g TOPICAL QID PRN (Reason: Pain) RF: 0 loratadine 10 mg Capsule 10 mg PO DAILY RF: 0 omeprazole 20 mg Capsule,Delayed Release(Dr/Ec) 20 mg PO QAM RF: 0 solifenacin [Vesicare] 5 mg Tablet 5 mg PO QAM RF: 0 [place]-3 (with dpa) 1,050-1,200 mg Capsule 1 cap PO QAM RF: 0 latanoprost 0.005 % Drops 1 drp OPB PM RF: 0 albuterol sulfate [ProAir HFA] 90 mcg/actuation Hfa Aerosol Inhaler 1 puff INHALATION Q6H PRN (Reason: Shortness Of Breath) RF: 0 phenylephrine HCl 10 mg Tablet 10 mg PO Q6H PRN (Reason: Nasal Congestion) RF: 0 PreserVision AREDS-2 [id number] Capsule 1 tab PO BID RF: 0 sennosides [Senokot] 8.6 mg Tablet 17.2 mg PO HS PRN (Reason: constipation) Qty: 28 RF: 0 tramadol 50 mg tablet 50 mg PO Q6H PRN (Reason: Pain) RF: 0 multivitamin Tablet 1 tab PO BID RF: 0 meclizine 25 mg Tablet 25 mg PO DAILY PRN (Reason: Dizziness) RF: 0 diphenhydramine HCl [Benadryl] 25 mg Capsule 25 mg PO DIRECTED PRN (Reason: Sleep) RF: 0 Complex B-50 115-50-0.4 mg Tablet Extended Release 1 tab PO QAM RF: 0 acetaminophen [Tylenol Extra Strength] 500 mg tablet 500 - 1,000 mg PO Q8 PRN (Reason: pain and/or fever) RF: 0 Discharge Orders: Discharge Order (Routine); Ordered 09/22/19 Ordered By: Vern Coreas Admission Data Admit Date/Time: 09/21/19 19:35 Attending Provider: Josue Faulkner Admit Provider: Josue Faulkner Primary Care Provider: Alberto Adames Other Providers: Zack Hart,Vern Felton
[2019-09-22] MEDS: TRAMADOL HCL 50 MG TABLET PO PRN (20:05)
== END 2019-09-22 20:21 | disposition short-term general hospital (02) ==
LOC: 2N 14:57 → ED 14:57 → 2N 20:34